=== PATIENT | female | born 1990 | race Caucasian/White ===

== ENCOUNTER 2016-11-16 12:10 | Emergency (ER) | payer MEDICAID ==
[2016-11-16 12:15] VITALS: BP 134/83
--- NOTE | 2016-11-16 12:45 | ER Document Report ---
ED Medical Screen (RME) - General Stated Complaint: NECK PAIN Mode of Arrival: Ambulatory Information source: Patient Notes: She presents to the emergency department with neck pain for year that increased in pain over the past month and a wrist pain. No other sx , has seen a neruolgist. I have greeted and performed a rapid initial assessment of this patient. A comprehensive ED assessment and evaluation of the patient, analysis of test results and completion of the medical decision making process will be conducted by additional ED providers. TRAVEL OUTSIDE OF THE [place] IN LAST 30 DAYS: No - Related Data Allergies/Adverse Reactions: No Known Allergies Allergy (Verified 10/05/15 16:53) Past Medical History - Immunizations Hx Diphtheria, Pertussis, Tetanus Vaccination: Yes Physical Exam - Vital signs Vitals: Temp Pulse Resp BP Pulse Ox 97.9 F 89 14 134/83 H 100 11/16/16 12:14 11/16/16 12:14 11/16/16 12:14 11/16/16 12:14 11/16/16 12:14 Course - Vital Signs Vital signs: Temp Pulse Resp BP Pulse Ox 97.9 F 89 14 134/83 H 100 11/16/16 12:14 11/16/16 12:14 11/16/16 12:14 11/16/16 12:14 11/16/16 12:14
[2016-11-16] MEDS ORDERED: IBUPROFEN 600 MG TABLET PO ONE (13:38)
[2016-11-16] MEDS ORDERED: METHOCARBAMOL 500 MG TABLET PO ONE (13:38)
--- NOTE | 2016-11-16 13:44 | ER Document Report ---
ED Neck/Back Problem - General Chief Complaint: Pain All Over Stated Complaint: NECK PAIN Time seen by provider: 13:39 Mode of Arrival: Ambulatory Information source: Patient Notes: 26-year-old female presents to ED for neck pain times a year. She has being seen by Dr. Guillen. She had a neck x-ray done last week and she is getting scheduled for a MRI. She states that the doctor didn't tell her much of anything and she is having pain has run out of muscle relaxers and needs something for her pain. TRAVEL OUTSIDE OF THE [place] IN LAST 30 DAYS: No - HPI Patient complains to provider of: Pain, Neck, Upper back Onset: Other - A year Timing: Still present Quality of pain: Sharp Severity: Severe Pain Level: 5 Recent injury: No Associated symptoms: Radiation to arm, Upper back pain, Other - Neck pain. denies: Constipation, Incontinence, Like prior neck/back pain, Motor loss, Numbness/tingling, Radiation to chest, Radiation to leg, Sensory loss, Unable to urinate, Lower back pain Exacerbated by: Other Relieved by: Nothing Similar symptoms previously: Yes Recently seen / treated by doctor: Yes - Related Data Allergies/Adverse Reactions: No Known Allergies Allergy (Verified 11/16/16 12:46) Past Medical History - General Information source: Patient - Social History Smoking Status: Current Every Day Smoker Cigarette use (# per day): Yes - 6 cigarettes a day Chew tobacco use (# tins/day): No Smoking Education Provided: Yes - less than a minute Frequency of alcohol use: Occasional Drug Abuse: None Lives with: Parents Family History: DM, Hyperlipidemia Patient has suicidal ideation: No Patient has homicidal ideation: No - Past Medical History Cardiac Medical History: Reports: None Pulmonary Medical History: Reports: None EENT Medical History: Reports: None Neurological Medical History: Reports: None Endocrine Medical History: Reports: None Renal/ Medical History: Reports: None Malignancy Medical History: Reports: None GI Medical History: Reports: None Musculoskeltal Medical History: Reports Hx Musculoskeletal Deformity - Chronic neck and back pain Skin Medical History: Reports None Psychiatric Medical History: Reports: None Traumatic Medical History: Reports: None Infectious Medical History: Reports: None Past Surgical History: Reports: Hx Oral Surgery - Multiple teeth surgically removed - Immunizations Immunizations up to date: Yes Hx Diphtheria, Pertussis, Tetanus Vaccination: Yes Review of Systems - Review of Systems Constitutional: No symptoms reported EENT: No symptoms reported Cardiovascular: No symptoms reported Respiratory: No symptoms reported Gastrointestinal: No symptoms reported Genitourinary: No symptoms reported Female Genitourinary: No symptoms reported Musculoskeletal: Back pain, Muscle pain, Neck pain - Upper back Skin: No symptoms reported Hematologic/Lymphatic: No symptoms reported Neurological/Psychological: No symptoms reported -: Yes All other systems reviewed and negative Physical Exam - Vital signs Vitals: Temp Pulse Resp BP Pulse Ox 97.9 F 89 14 134/83 H 100 11/16/16 12:14 11/16/16 12:14 11/16/16 12:14 11/16/16 12:14 11/16/16 12:14 Interpretation: Normal - General General appearance: Appears well, Alert - HEENT Head: Normocephalic, Atraumatic Eyes: Normal Pupils: PERRL - Respiratory Respiratory status: No respiratory distress Chest status: Nontender Breath sounds: Normal Chest palpation: Normal - Cardiovascular Rhythm: Regular Heart sounds: Normal auscultation Murmur: No - Abdominal Inspection: Normal Distension: No distension Bowel sounds: Normal Tenderness: Nontender Organomegaly: No organomegaly - Back Back: Normal, Tender, Vertebra tenderness - Upper back. No: Deformity/step-off , CVA tenderness, Scars, Scoliosis, Wounds, Other - Extremities General upper extremity: Normal inspection, Nontender, Normal color, Normal ROM , Normal temperature General lower extremity: Normal inspection, Nontender, Normal color, Normal ROM , Normal temperature, Normal weight bearing. No: Miguel's sign - Neurological Neuro grossly intact: Yes Cognition: Normal Orientation: AAOx4 Brandon Coma Scale Eye Opening: Spontaneous Phyllis Coma Scale Verbal: Oriented Phyllis Coma Scale Motor: Obeys Commands Phyllis Coma Scale Total: 15 Speech: Normal Motor strength normal: LUE, RUE, LLE, RLE Sensory: Normal - Psychological Associated symptoms: Normal affect, Normal mood - Skin Skin Temperature: Warm Skin Moisture: Dry Skin Color: Normal Course - Re-evaluation Re-evalutation: 11/16/16 13:43 Patient states she was seen last week by Dr. Guillen and again on Sunday and he stated that soon as the results of the x-ray were back he will recontact her and he has not set up an appointment at this time. He is also scheduled and not an MRI and due to her Medicaid she states it takes a little while to get that. She was also put on baclofen which she states she does not have any left. We'll give her small prescription of Robaxin and ibuprofen and have follow-up with Dr. Guillen - Vital Signs Vital signs: Temp Pulse Resp BP Pulse Ox 97.9 F 89 14 134/83 H 100 11/16/16 12:14 11/16/16 12:14 11/16/16 12:14 11/16/16 12:14 11/16/16 12:14 Discharge - Discharge Clinical Impression: Neck pain of over 3 months duration, Upper back pain, chronic Condition: Stable Disposition: HOME, SELF-CARE Additional Instructions: Chronic Back Pain Chronic back pain (pain persisting longer than three months) is a common problem. A medical evaluation can look for herniated disc, arthritis, osteoporosis, tumors, and infections. But at least half the time, there's no obvious treatable cause. Anxiety and depression tend to worsen back pain. Ibuprofen or other anti-inflammatory medicine can help. A heating pad, used for 15-20 minutes at a time, can ease pain. For this type of back pain, narcotic medicines should be avoided. Muscle relaxers are rarely helpful unless you're having spasms. Activity is important. Find an aerobic exercise program that your back can tolerate. Too much rest makes back pain worse. Specific back exercises are usually prescribed to strengthen the back and abdominal muscles. Often, a physical therapist can help. Avoid heavy lifting, working while bent over, or standing with both knees straight. Most back pain patients do better with a firm mattress. If new symptoms of a "herniated disc" (radiation of pain, numbness, or tingling down the back of the leg or weakness in the leg) occur, you should be re-examined. Chronic Pain Control Stress, inactivity, and depression make pain more severe regardless of the cause of the pain. Stress and poor physical condition can cause pain such as headaches and backache. Relaxation: Rest in a quiet place with your eyes closed for 20 minutes twice daily. Concentrate on a pleasant image, or simply "feel" your breathing. Clear your mind. Stress management: Deal with your "stressors." Either take action, or eliminate the stressor from your life. Don't let things hang over you. Accept those things you can't change. Nutrition: Eat small, balanced meals -- don't skip, don't overeat. Meals should be high-carbohydrate, low-sugar, low-fat. Exercise: Exercise helps painful conditions and eases stress. Get 30 minutes of moderate exercise, five days a week. Do an activity that does not flare your pain. Precautions: Pain which continues to disrupt daily activities, or which changes in nature, requires a medical evaluation. Pain Clinic referral is available. We do not manage chronic pain in the Emergency Department. We will try to appropriately help you through an acute flare of your chronic painful condition , but for on-going chronic pain that does not improve, you will need to see your private doctor or paint tester. We do not provide repeated medication management of chronic painful conditions. If you wish, we can provide the name of local pain management physicians. Ibuprofen Ibuprofen is an excellent, safe drug for pain control. In addition, it has potent antiinflammatory effects which are beneficial, especially in the treatment of injuries, arthritis, or tendonitis. It's best to take ibuprofen with food. Persons with ulcer disease or allergy to aspirin should notify their physician of this before taking ibuprofen. Take the medication exactly as prescribed. Don't take additional doses unless instructed to do so by your doctor. If you develop wheezing, shortness of breath, hives, faintness, stomach pain, vomiting, or dark black stools, return for re-evaluation at once. MUSCLE RELAXERS: Muscle relaxing medications are usually prescribed for acute muscle spasm or injury to the neck and back. They are often combined with antiinflammatory pain medication for increased relief. You may stop the muscle relaxer when the pain and stiffness have improved. Start the medication again if spasms recur. Muscle relaxers may cause drowsiness, especially with the first dose. Do not operate machinery or drive while under the effects of the medication. Most muscle relaxers last up to 24 hours. Do not combine the medication with alcohol. ICE PACKS: Apply ice packs frequently against the painful area. Many different schedules are recommended, such as "20 minutes on, 20 minutes off" or "one hour ice, two hours rest." If you need to work, you may need to go longer between ice treatments. You should plan to have the area ice packed AT LEAST one fourth of the time. The ice should be applied over the wrap, tape, or splint, or over a layer of cloth -- not directly against the skin. Some ice bags have a built-in cloth and can be put directly on the skin. WARM PACKS: After approximately two days, apply gentle heat (such as a heating pad or hot water bottle) for about 20 to 30 minutes about every two hours -- at least four times daily. Warmth and elevation will help you make a more rapid recovery , and will ease the pain considerably. Do not use HOT heat, and never apply heat for longer than 30 minutes. The continuous heat can invisibly damage skin and muscles -- even when no burn is seen on the surface. Damaged muscles can make you MORE sore. FOLLOW-UP CARE: If you have been referred to a physician for follow-up care, call the physician s office for an appointment as you were instructed or within the next two days. If you experience worsening or a significant change in your symptoms, notify the physician immediately or return to the Emergency Department at any time for re-evaluation. Prescriptions: Ibuprofen [Motrin 600 mg Tablet] 600 mg PO Q8HP PRN #20 tablet PRN Reason: Methocarbamol [Robaxin 500 mg Tablet] 500 mg PO BID #10 tablet Forms: Elevated Blood Pressure, Smoking Cessation Education, Return to Work Referrals: ERYN GUILLEN MD [EMER[facility]] - Follow up in 3-5 days
== END 2016-11-16 14:00 | disposition home or self-care (01) ==
LOC: ER 12:10
DX: M54.2 Cervicalgia (principal); M54.89 Other dorsalgia; G89.29 Other chronic pain; F17.210 Nicotine dependence, cigarettes, uncomplicated; Z71.6 Tobacco abuse counseling
CPT/HCPCS: 99283; J3490 ×2

== ENCOUNTER → 2016-12-13 | Outpatient (CLI) | payer MEDICAID ==
[2016-12-13 12:53] LABS: ABSOLUTE BASOPHILS # (AUTO) 0.1 10^3/uL (0.0-0.2); ABSOLUTE EOSINOPHILS # (AUTO) 0.2 10^3/uL (0.0-0.6); ABSOLUTE LYMPHOCYTES (AUTO) 4.1 10^3/uL (0.5-4.7); ABSOLUTE MONOCYTES (AUTO) 0.6 10^3/uL (0.1-1.4); ABSOLUTE NEUT (AUTO) 6.8 10^3/uL (1.7-8.2); BASOPHILS % (AUTO) 0.4 % (0-2); EOSINOPHILS % (AUTO) 1.4 % (0-6); HEMOGLOBIN 11.7 g/dL (12.0-15.5); HGB HCT DIFFERENCE 0.1; LYMPHOCYTES % (AUTO) 35.2 % (13-45); MEAN CORPUSCULAR HEMOGLOBIN 29.5 pg (27.0-33.4); MEAN CORPUSCULAR HGB CONC 33.6 g/dL (32.0-36.0); MEAN CORPUSCULAR VOLUME 88 fl (80-97); MONOCYTES % (AUTO) 5.1 % (3-13); RED BLOOD COUNT 3.99 10^6/uL (3.72-5.28); RED CELL DISTRIBUTION WIDTH 13.2 % (11.5-14.0); SEGMENTED NEUTROPHILS % (AUTO) 57.9 % (42-78); WHITE BLOOD COUNT 11.7 10^3/uL (4.0-10.5)
[2016-12-13 13:16] LABS: ALANINE AMINOTRANSFERASE 19 U/L (9-52); ALBUMIN 4.1 g/dL (3.5-5.0); ALKALINE PHOSPHATASE 70 U/L (38-126); ANION GAP 10 (5-19); ASPARTATE AMINO TRANSFERASE 16 U/L (14-36); BILIRUBIN,TOTAL 0.3 mg/dL (0.2-1.3); BLOOD UREA NITROGEN 14 mg/dL (7-20); CALCIUM 9.9 mg/dL (8.4-10.2); CARBON DIOXIDE 24 mmol/L (22-30); CHLORIDE 105 mmol/L (98-107); CREATININE RESULT 0.86 mg/dL (0.52-1.25); GLUCOSE 71 mg/dL (75-110); POTASSIUM 4.3 mmol/L (3.6-5.0); SODIUM 139.2 mmol/L (137-145); TOTAL PROTEIN 7.4 g/dL (6.3-8.2)
[2016-12-13 13:22] LABS: C-REACTIVE PROTEIN < 5.0 mg/L (<10.0)
[2016-12-13 13:45] LABS: ERYTHROCYTE SEDIMENTATION RATE 20 mm/hr (0-20)
== END ==
LOC: OD 11:57
PROVIDERS: ATTEND Family Medicine
DX: G62.9 Polyneuropathy, unspecified (principal)
CPT/HCPCS: 36415; 80053; 84443; 85025; 85652; 86038; 86140; 86592

== ENCOUNTER 2017-01-10 10:05 | Emergency (ER) | payer MEDICAID ==
[2017-01-10 10:21] VITALS: BP 118/83
--- NOTE | 2017-01-10 10:26 | ER Document Report ---
ED Medical Screen (RME) - General Stated Complaint: HEADACHE Notes: 26 yo female from doctor's office. felt dizzy and near syncopal during blood draw. presently alert & oriented x 3, feels shaky and weak. hx/o anxiety, anemia. pt presently on period. PCM - Dr Dudley, [facility] TRAVEL OUTSIDE OF THE [place] IN LAST 30 DAYS: No - Related Data Allergies/Adverse Reactions: No Known Allergies Allergy (Verified 11/16/16 12:46) Past Medical History Renal/ Medical History: Denies: Hx Peritoneal Dialysis Musculoskeltal Medical History: Reports Hx Musculoskeletal Deformity - Chronic neck and back pain Past Surgical History: Reports: Hx Oral Surgery - Multiple teeth surgically removed - Immunizations Immunizations up to date: Yes Hx Diphtheria, Pertussis, Tetanus Vaccination: Yes Physical Exam - Vital signs Vitals: Temp Pulse Resp BP Pulse Ox 98.4 F 87 18 118/83 100 01/10/17 10:20 01/10/17 10:20 01/10/17 10:20 01/10/17 10:20 01/10/17 10:20 Course - Vital Signs Vital signs: Temp Pulse Resp BP Pulse Ox 98.4 F 87 18 118/83 100 01/10/17 10:20 01/10/17 10:20 01/10/17 10:20 01/10/17 10:20 01/10/17 10:20
[2017-01-10 11:14] LABS: ABSOLUTE EOSINOPHILS # (AUTO) 0.2 10^3/uL (0.0-0.6); ABSOLUTE LYMPHOCYTES (AUTO) 2.3 10^3/uL (0.5-4.7); ABSOLUTE MONOCYTES (AUTO) 0.6 10^3/uL (0.1-1.4); ABSOLUTE NEUT (AUTO) 6.9 10^3/uL (1.7-8.2); BASOPHILS % (AUTO) 0.4 % (0-2); EOSINOPHILS % (AUTO) 2.2 % (0-6); HEMATOCRIT 36.7 % (36.0-47.0); HEMOGLOBIN 12.3 g/dL (12.0-15.5); HGB HCT DIFFERENCE 0.2; LYMPHOCYTES % (AUTO) 23.2 % (13-45); MEAN CORPUSCULAR HEMOGLOBIN 29.3 pg (27.0-33.4); MEAN CORPUSCULAR HGB CONC 33.5 g/dL (32.0-36.0); MEAN CORPUSCULAR VOLUME 88 fl (80-97); MONOCYTES % (AUTO) 5.7 % (3-13); RED BLOOD COUNT 4.18 10^6/uL (3.72-5.28); RED CELL DISTRIBUTION WIDTH 13.9 % (11.5-14.0); SEGMENTED NEUTROPHILS % (AUTO) 68.5 % (42-78)
[2017-01-10 11:21] LABS: APPEARANCE,URINE SLIGHTLY-CLOUDY; BILIRUBIN,URINE NEGATIVE (NEGATIVE); GLUCOSE, URINE NEGATIVE (NEGATIVE); KETONES,URINE NEGATIVE (NEGATIVE); LEUKOCYTE ESTERASE,URINE NEGATIVE (NEGATIVE); NITRITE,URINE NEGATIVE (NEGATIVE); PROTEIN,URINE NEGATIVE (NEGATIVE); URINE SPECIFIC GRAVITY 1.008; UROBILINOGEN,URINE NEGATIVE mg/dL (<2.0)
[2017-01-10 11:33] LABS: ALANINE AMINOTRANSFERASE 19 U/L (9-52); ALBUMIN 4.6 g/dL (3.5-5.0); ALKALINE PHOSPHATASE 66 U/L (38-126); ANION GAP 13 (5-19); ASPARTATE AMINO TRANSFERASE 17 U/L (14-36); BILIRUBIN,DIRECT 0.2 mg/dL (0.0-0.4); BILIRUBIN,TOTAL 0.3 mg/dL (0.2-1.3); BLOOD UREA NITROGEN 10 mg/dL (7-20); CALCIUM 9.9 mg/dL (8.4-10.2); CARBON DIOXIDE 24 mmol/L (22-30); CHLORIDE 105 mmol/L (98-107); CREATININE RESULT 0.73 mg/dL (0.52-1.25); GLUCOSE 98 mg/dL (75-110); POTASSIUM 4.1 mmol/L (3.6-5.0); TOTAL PROTEIN 7.4 g/dL (6.3-8.2)
[2017-01-10] MEDS ORDERED: IBUPROFEN 800 MG TABLET PO ONE (12:01)
[2017-01-10] MEDS ORDERED: DIPHENHYDRAMINE HCL 50 MG CAPSULE PO ONE (12:01)
[2017-01-10] MEDS ORDERED: PROCHLORPERAZINE MALEATE 10 MG TABLET PO ONE (12:02)
--- NOTE | 2017-01-10 12:02 | ER Document Report ---
HPI - HPI Patient complains to provider of: headache, dizziness, thrush, numb arms/legs Onset: Just prior to arrival Onset/Duration: Sudden Pain Level: 5 Context: 26-year-old female while having blood drawn at doctor's office became dizzy, lightheaded, headache and almost passed out. She also got numbness to her arms and legs at the same time. She states she was not hyperventilating. She also is complaining about recurrent thrush to her tongue. She is not diabetic nor have HIV. No chest pain or shortness of breath. No abdominal pain. No fever or chills. She feels a lot better. Associated Symptoms: None Exacerbated by: Denies Relieved by: Denies Similar symptoms previously: No Recently seen / treated by doctor: No - ROS ROS below otherwise negative: Yes Systems Reviewed and Negative: Yes All other systems reviewed and negative - REPRODUCTIVE LMP: now Reproductive: DENIES: : - DERM Skin Color: Normal Past Medical History - General Information source: Patient - Social History Smoking Status: Current Every Day Smoker Frequency of alcohol use: Occasional Drug Abuse: None Lives with: Family Family History: DM, Hyperlipidemia Patient has suicidal ideation: No Patient has homicidal ideation: No Neurological Medical History: Reports: Hx Migraine Renal/ Medical History: Denies: Hx Peritoneal Dialysis Musculoskeltal Medical History: Reports Hx Musculoskeletal Deformity - Chronic neck and back pain Other: thrush Past Surgical History: Reports: Hx Oral Surgery - Multiple teeth surgically removed - Immunizations Immunizations up to date: Yes Hx Diphtheria, Pertussis, Tetanus Vaccination: Yes Vertical Provider Document - CONSTITUTIONAL Agree With Documented VS: Yes - INFECTION CONTROL TRAVEL OUTSIDE OF THE [place] IN LAST 30 DAYS: No - HEENT HEENT: Atraumatic, Normocephalic, PERRLA. negative: Conjuctival Injection, Pharyngeal Erythema, Tympanic Membrane Red Notes: tongue is graffic, ely discoloration, no thrush buccal mucosa or post pharynx - NECK Neck: Supple, Thyroid Normal. negative: Lymphadenopathy-Left, Lymphadenopathy- Right - RESPIRATORY Respiratory: Breath Sounds Normal, No Respiratory Distress O2 Sat by Pulse Oximetry: 100 - CARDIOVASCULAR Cardiovascular: Regular Rate, Regular Rhythm - GI/ABDOMEN Gastrointestinal: Abdomen Soft, Abdomen Non-Tender, No Organomegaly - BACK Back: Normal Inspection - MUSCULOSKELETAL/EXTREMETIES Musculoskeletal/Extremeties: MAEW, FROM, Non-Tender - NEURO Level of Consciousness: Awake, Alert, Appropriate - DERM Integumentary: Warm, Dry, No Rash Course - Vital Signs Vital signs: Temp Pulse Resp BP Pulse Ox 98.4 F 87 18 118/83 100 01/10/17 10:20 01/10/17 10:20 01/10/17 10:20 01/10/17 10:20 01/10/17 10:20 - Laboratory Result Diagrams: 01/10/17 11:00 01/10/17 11:00 Laboratory results interpreted by me: 01/10/17 11:00 Urine Blood LARGE H Discharge - Discharge Clinical Impression: Paresthesia, Glossitis, Dizziness Headache Qualifiers: Headache type: unspecified Headache chronicity pattern: unspecified pattern Intractability: not intractable Qualified Code(s): R51 - Headache Condition: Good Disposition: HOME, SELF-CARE Instructions: Dizziness ([facility]), Numbness or Paresthesia ([facility]) Additional Instructions: Call me before 11 PM tonight for the vitamin B-12 or thiamine level and the home swab see Dr. Clemente tomorrow Return to the emergency room Please complete the patient satisfaction survey if you get one, and return it.. If you do not receive a survey, then you can go to the [facility] website, [email or web address] and place your comments about your very good care. Thank you very much. It was a pleasure being your medical provider today. Referrals: NAHED CLEMENTE MD [Primary Care Provider] - Follow up tomorrow
--- NOTE | 2017-01-10 13:50 | EKG REPORT ---
SEVERITY:- NORMAL ECG - SINUS RHYTHM : Confirmed by: Nj Shabazz MD 10-Jan-2017 13:49:03
== END 2017-01-10 13:39 | disposition home or self-care (01) ==
LOC: ER 10:05
DX: K14.0 Glossitis (principal); R51 Headache; R42 Dizziness and giddiness; R20.0 Anesthesia of skin; F17.200 Nicotine dependence, unspecified, uncomplicated; Z83.3 Family history of diabetes mellitus; Z86.19 Personal history of other infectious and parasitic diseases
CPT/HCPCS: 93005; 99284; 36415; 87086; 87210; 82607; 84703; 85025; 80053; 81001; 93010; J3490 ×2; S0183

== ENCOUNTER 2017-02-28 17:07 | Observation (INO) | payer OTHER, MEDICAID ==
[2017-02-28] MEDS ORDERED: ONDANSETRON 4 MG TAB.RAPDIS PO ONE (17:26)
[2017-02-28] MEDS ORDERED: OXYCODONE-ACETAMINOPHEN 5-325 MG TABLET PO ONE (17:26)
[2017-02-28 18:03] LABS: ABSOLUTE EOSINOPHILS # (AUTO) 0.2 10^3/uL (0.0-0.6); ABSOLUTE LYMPHOCYTES (AUTO) 3.7 10^3/uL (0.5-4.7); ABSOLUTE MONOCYTES (AUTO) 0.6 10^3/uL (0.1-1.4); ABSOLUTE NEUT (AUTO) 4.4 10^3/uL (1.7-8.2); BASOPHILS % (AUTO) 0.5 % (0-2); EOSINOPHILS % (AUTO) 2.2 % (0-6); HEMATOCRIT 36.6 % (36.0-47.0); HEMOGLOBIN 12.1 g/dL (12.0-15.5); HGB HCT DIFFERENCE -0.3; LYMPHOCYTES % (AUTO) 41.8 % (13-45); MEAN CORPUSCULAR HEMOGLOBIN 28.8 pg (27.0-33.4); MEAN CORPUSCULAR HGB CONC 33.1 g/dL (32.0-36.0); MEAN CORPUSCULAR VOLUME 87 fl (80-97); MONOCYTES % (AUTO) 6.3 % (3-13); RED CELL DISTRIBUTION WIDTH 13.6 % (11.5-14.0); SEGMENTED NEUTROPHILS % (AUTO) 49.2 % (42-78); WHITE BLOOD COUNT 8.9 10^3/uL (4.0-10.5)
[2017-02-28 18:09] LABS: APPEARANCE,URINE SLIGHTLY-CLOUDY; BILIRUBIN,URINE NEGATIVE (NEGATIVE); GLUCOSE, URINE NEGATIVE (NEGATIVE); KETONES,URINE NEGATIVE (NEGATIVE); LEUKOCYTE ESTERASE,URINE NEGATIVE (NEGATIVE); NITRITE,URINE NEGATIVE (NEGATIVE); PROTEIN,URINE NEGATIVE (NEGATIVE); URINE SPECIFIC GRAVITY 1.013; UROBILINOGEN,URINE NEGATIVE mg/dL (<2.0)
[2017-02-28 18:17] LABS: ALANINE AMINOTRANSFERASE 24 U/L (9-52); ALBUMIN 4.5 g/dL (3.5-5.0); ALKALINE PHOSPHATASE 55 U/L (38-126); ANION GAP 11 (5-19); ASPARTATE AMINO TRANSFERASE 21 U/L (14-36); BILIRUBIN,DIRECT 0.4 mg/dL (0.0-0.4); BILIRUBIN,TOTAL 0.5 mg/dL (0.2-1.3); BLOOD UREA NITROGEN 15 mg/dL (7-20); CALCIUM 9.9 mg/dL (8.4-10.2); CARBON DIOXIDE 26 mmol/L (22-30); CHLORIDE 102 mmol/L (98-107); CREATININE RESULT 0.82 mg/dL (0.52-1.25); GLUCOSE 73 mg/dL (75-110); LIPASE 138.2 U/L (23-300); POTASSIUM 4.5 mmol/L (3.6-5.0); SODIUM 139.1 mmol/L (137-145); TOTAL PROTEIN 7.6 g/dL (6.3-8.2)
[2017-02-28] MEDS ORDERED: NORMAL SALINE 1000 ML 1,000 ML IV ONE (19:57)
[2017-02-28] MEDS ORDERED: KETOROLAC TROMETHAMINE INJ/PF 30 MG/1 ML SDV IV ONE (19:57)
--- NOTE | 2017-02-28 20:09 | ER Document Report ---
ED GI/ <ERIC NICHOLAS - Last Filed: 02/28/17 21:07> - General Mode of Arrival: Ambulatory Information source: Patient TRAVEL OUTSIDE OF THE [place] IN LAST 30 DAYS: No - HPI Patient complains to provider of: Abdominal pain - RUQ and RLQ, Vomiting Onset: This afternoon - 1500 Location: RUQ, RLQ Associated symptoms: Other - see notes above <RAPHAEL RANDALL - Last Filed: 02/28/17 21:46> - General Chief Complaint: Abdominal Pain Stated Complaint: ABDOMINAL PAIN Time Seen by Provider: 02/28/17 17:26 Notes: 26 year old female presents to the ED complaining of RUQ pain that has been intermittent for the past 2 months, but worsened earlier this afternoon at 1500. Patient reports that she [facility] and is scheduled for a cholecystectomy in 1 week. Patient additionally complains of nausea, vomiting, and RLQ abdominal pain. Patient is currently taking iron supplements, Diazepam, Clonazepam, and Tramadol. Patient reports that she used to take Topomax and Lexapro, but does not anymore. Patient had an endoscopy and colonoscopy performed by Dr. Syed that showed ulcers. On 08/01/2013 patient had a RUQ ultrasound performed secondary to RUQ pain which was normal. (RAPHAEL RANDALL) - Related Data Allergies/Adverse Reactions: No Known Allergies Allergy (Verified 02/28/17 10:22) Home Medications: Current Home Medications Diazepam [Valium 5 mg Tablet] 5 mg PO DAILYP PRN 02/28/17 [History] Ferrous Sulfate [Ferrous Sulfate] 325 mg PO DAILY 02/28/17 [History] Omeprazole [Omeprazole] 40 mg PO Q12 02/28/17 [History] Past Medical History - General Information source: Patient - Social History Smoking Status: Current Every Day Smoker Cigarette use (# per day): Yes - 0.5 ppd Frequency of alcohol use: Occasional Family History: DM, Hyperlipidemia Patient has suicidal ideation: No Patient has homicidal ideation: No Neurological Medical History: Reports: Hx Migraine Musculoskeltal Medical History: Reports Hx Musculoskeletal Deformity - Chronic neck and back pain Past Surgical History: Reports: Hx Oral Surgery - [place] teeth extraction. Two left molar and one right molar extraction. - Immunizations Immunizations up to date: Yes Hx Diphtheria, Pertussis, Tetanus Vaccination: No <RAPHAEL RANDALL - Last Filed: 02/28/17 21:46> Review of Systems - Review of Systems Constitutional: No symptoms reported EENT: No symptoms reported Cardiovascular: No symptoms reported Respiratory: No symptoms reported Gastrointestinal: See HPI, Abdominal pain - RUQ and RLQ, Nausea, Vomiting Genitourinary: No symptoms reported Female Genitourinary: No symptoms reported Musculoskeletal: No symptoms reported Skin: No symptoms reported Hematologic/Lymphatic: No symptoms reported Neurological/Psychological: No symptoms reported -: Yes All other systems reviewed and negative <RAPHAEL RANDALL - Last Filed: 02/28/17 21:46> Physical Exam - General General appearance: Alert In distress: None - HEENT Head: Normocephalic, Atraumatic Eyes: Normal Extraocular movements intact: Yes Pupils: PERRL - Respiratory Respiratory status: No respiratory distress Breath sounds: Normal - Cardiovascular Rhythm: Regular Heart sounds: Normal auscultation - Abdominal Inspection: Normal Distension: No distension Tenderness: Tender - Tenderness to palpation from the right pelvic region to RUQ. - Back Back: Normal - Extremities General upper extremity: Normal inspection, Normal ROM General lower extremity: Normal inspection, Normal ROM - Neurological Neuro grossly intact: Yes - Psychological Associated symptoms: Normal affect, Normal mood - Skin Skin Temperature: Warm Skin Moisture: Dry Skin Color: Normal <RAPHAEL RANDALL - Last Filed: 02/28/17 21:46> - Vital signs Vitals: Temp Pulse BP Pulse Ox 97.8 F 85 129/79 H 99 02/28/17 17:17 02/28/17 17:17 02/28/17 17:17 02/28/17 17:17 Course - Laboratory Result Diagrams: 02/28/17 17:40 02/28/17 17:40 - Diagnostic Test Radiology reviewed: Image reviewed - Several small stones in the gallbladder neck - EKG Interpretation by Oh EKG shows normal: Sinus rhythm, [place], Intervals, QRS Complexes. abnormal: ST-T Waves - Nonspecific diffuse repolarization abnormality Rate: Normal - 87 Rhythm: NSR P Waves: LAE - Consults Dr. Allen Time consulted: 21:05 Consulted provider: will come to ER <ERIC NICHOLAS - Last Filed: 02/28/17 21:07> - Laboratory Result Diagrams: 02/28/17 17:40 02/28/17 17:40 <RAPHAEL RANDALL - Last Filed: 02/28/17 21:46> - Vital Signs Vital signs: Temp Pulse Resp BP Pulse Ox 97.8 F 85 129/79 H 99 02/28/17 17:17 02/28/17 17:17 02/28/17 17:17 02/28/17 17:17 - Laboratory Laboratory results interpreted by me: 02/28/17 17:40 Glucose 73 L Discharge - Discharge Admitting Provider: Surgicalist Unit Admitted: Surgical Floor <ERIC NICHOLAS - Last Filed: 02/28/17 21:07> <RAPHAEL RANDALL - Last Filed: 02/28/17 21:46> - Discharge Clinical Impression: Cholelithiasis Qualifiers: Cholelithiasis location: gallbladder Cholecystitis presence: with cholecystitis Cholecystitis acuity: acute Biliary obstruction: without biliary obstruction Qualified Code(s): K80.00 - Calculus of gallbladder with acute cholecystitis without obstruction Condition: Stable Disposition: ADMITTED INPATIENT Scribe Attestation: 02/28/17 21:08 I personally performed the services described in the documentation, reviewed and edited the documentation which was dictated to the scribe in my presence, and it accurately records my words and actions. (ERIC NICHOLAS) Scribe Documentation - Scribe Written by See:: See Yepez, 02/28/2017 2013 acting as scribe for :: Unique <RAPHAEL RANDALL - Last Filed: 02/28/17 21:46>
[2017-02-28] MEDS ORDERED: HYDROMORPHONE HCL INJ/PF 2 MG/ML AMPULE IV PRN (22:11)
[2017-02-28] MEDS ORDERED: ONDANSETRON HCL INJ/PF 4 MG/2 ML SDV IV PRN (22:12)
[2017-02-28] MEDS: CEFAZOLIN 1 GM/D5W RTU 1 GM/50 ML RTUPB IV SCH (23:10)
[2017-02-28] MEDS: NORMAL SALINE 1000 ML 1,000 ML IV PRN (23:11)
--- NOTE | 2017-02-28 23:23 | HISTORY AND PHYSICAL E ---
History and Physical NAME: LIZ SHUKLA : 1990 AGE: 26Y ADMITTED: 02/28/2017 ROOM: ED14 HISTORY OF PRESENT ILLNESS: This is a 26-year-old female who complains of severe right upper quadrant pain radiating to the back few hours after eating lasagna at noontime. This was associated with nausea. She went to the emergency room where an ultrasound of the gallbladder apparently showed gallstones. We are waiting for the official reading of the ultrasound. At any rate, patient did have an ultrasound of the gallbladder at an [facility] about a month ago and noted to have gallstones. She has been having off and on right upper quadrant abdominal pains radiating to the back into the sternal area for the past month and a half. She was referred to Dr. Hilario about a month ago and then came back a week ago for milder discomfort in the right upper quadrant and was scheduled for laparoscopic cholecystectomy next week. She did have an upper endoscopy done about a month ago and told that she had "gastric ulcers." She was given omeprazole to take twice a day and she finished her first prescription yesterday and supposed to start another prescription today. PAST MEDICAL HISTORY: History of dental work with removal of molars. She has some anxiety. No other previous surgery. FAMILY HISTORY: Strong for gallbladder disease. Her mother just got diagnosed with gallstones and her grandmother had surgery for gallstones. ALLERGIES: None known. REVIEW OF SYSTEMS: As in HPI. Last week she said she had diarrhea and this week constipation. She denies any dysuria. Admits to having right upper quadrant pain radiating to the back into the sternal area. She has some chest discomfort and occasional shortness of breath. Also occasional headaches. No weakness or nasal congestion. She denies any *------* of her symptoms to eating fried or greasy food though today ate lasagne which is quite greasy. The rest of the systems are unremarkable. SOCIAL HISTORY: Smokes about 6 cigarettes a day. Drinks socially. Denies drug use. PHYSICAL EXAM: GENERAL: Well developed, well nourished 26-year-old female. Alert and oriented. Complaining of right upper quadrant pain. HEENT: Neck is supple. No thyromegaly. LUNGS: Clear. HEART: Regular sinus rhythm. ABDOMEN: Soft with tenderness in the right upper quadrant. She just had some Toradol which she claims just took a little bit of the edge of. EXTREMITIES: No edema. IMPRESSION: Acute calculous cholecystitis. This patient had a full dinner at 12 noon and had a soda around 4:30. PLAN: Will just keep her n.p.o. tonight and Dr. Hilario can do her lap nabeel tomorrow morning. DICTATING PHYSICIAN: TRANG LOPEZ M.D. [id number] PHY#: [id number] ID: [id number] JOB#: [id number] ACCT: [id number] cc:TRANG LOPEZ M.D. >
[2017-02-28] MEDS: HYDROMORPHONE HCL INJ/PF 2 MG/ML AMPULE IV PRN (23:25)
[2017-03-01] MEDS: HYDROMORPHONE HCL INJ/PF 2 MG/ML AMPULE IV PRN ×3 (02:32→09:07)
[2017-03-01] MEDS: NORMAL SALINE 1000 ML 1,000 ML IV PRN ×2 (02:39→17:55)
[2017-03-01 05:30] LABS: ABSOLUTE EOSINOPHILS # (AUTO) 0.2 10^3/uL (0.0-0.6); ABSOLUTE LYMPHOCYTES (AUTO) 4.1 10^3/uL (0.5-4.7); ABSOLUTE MONOCYTES (AUTO) 0.5 10^3/uL (0.1-1.4); ABSOLUTE NEUT (AUTO) 2.7 10^3/uL (1.7-8.2); BASOPHILS % (AUTO) 0.5 % (0-2); EOSINOPHILS % (AUTO) 2.6 % (0-6); HEMATOCRIT 33.7 % (36.0-47.0); HEMOGLOBIN 11.1 g/dL (12.0-15.5); HGB HCT DIFFERENCE -0.4; LYMPHOCYTES % (AUTO) 54.5 % (13-45); MEAN CORPUSCULAR HEMOGLOBIN 29.2 pg (27.0-33.4); MEAN CORPUSCULAR VOLUME 88 fl (80-97); MONOCYTES % (AUTO) 6.2 % (3-13); RED BLOOD COUNT 3.81 10^6/uL (3.72-5.28); RED CELL DISTRIBUTION WIDTH 13.7 % (11.5-14.0); SEGMENTED NEUTROPHILS % (AUTO) 36.2 % (42-78); WHITE BLOOD COUNT 7.6 10^3/uL (4.0-10.5)
[2017-03-01 05:42] LABS: ALANINE AMINOTRANSFERASE 26 U/L (9-52); ALBUMIN 3.6 g/dL (3.5-5.0); ALKALINE PHOSPHATASE 50 U/L (38-126); AMYLASE 55 U/L (30-110); ANION GAP 5 (5-19); ASPARTATE AMINO TRANSFERASE 16 U/L (14-36); BILIRUBIN,DIRECT 0.3 mg/dL (0.0-0.4); BILIRUBIN,TOTAL 0.5 mg/dL (0.2-1.3); BLOOD UREA NITROGEN 14 mg/dL (7-20); CALCIUM 8.7 mg/dL (8.4-10.2); CARBON DIOXIDE 28 mmol/L (22-30); CHLORIDE 106 mmol/L (98-107); CREATININE RESULT 0.72 mg/dL (0.52-1.25); GLUCOSE 86 mg/dL (75-110); POTASSIUM 4.4 mmol/L (3.6-5.0); SODIUM 138.5 mmol/L (137-145); TOTAL PROTEIN 6.2 g/dL (6.3-8.2)
[2017-03-01] MEDS: CEFAZOLIN 1 GM/D5W RTU 1 GM/50 ML RTUPB IV SCH (05:47)
--- NOTE | 2017-03-01 08:32 | PDOC PROGRESS REPORT ---
Subjective Progress Note for:: 03/01/17 Subjective:: Right upper quadrant abdominal pain radiating to the back. Physical Exam Vital Signs: Temp Pulse Resp BP Pulse Ox 97.8 F 63 17 105/53 L 98 03/01/17 01:47 03/01/17 01:47 03/01/17 01:47 03/01/17 01:47 03/01/17 01:47 Intake & Output 02/28/17 03/01/17 03/02/17 06:59 06:59 06:59 Intake Total 0 Balance 0 Weight 86.9 kg General appearance: PRESENT: cooperative, mild distress Respiratory exam: PRESENT: clear to auscultation indio Cardiovascular exam: PRESENT: RRR GI/Abdominal exam: PRESENT: other - Soft, nondistended, focal tenderness to palpation the right upper quadrant but no peritoneal signs. Extremities exam: PRESENT: other - No swelling Results Laboratory Results: 03/01/17 05:06 03/01/17 05:06 03/01/17 03/01/17 05:06 05:06 WBC 7.6 RBC 3.81 Hgb 11.1 L Hct 33.7 L MCV 88 MCH 29.2 MCHC 33.0 RDW 13.7 Plt Count 279 Seg Neutrophils % 36.2 L Lymphocytes % 54.5 H Monocytes % 6.2 Eosinophils % 2.6 Basophils % 0.5 Absolute Neutrophils 2.7 Absolute Lymphocytes 4.1 Absolute Monocytes 0.5 Absolute Eosinophils 0.2 Absolute Basophils 0.0 Sodium 138.5 Potassium 4.4 Chloride 106 Carbon Dioxide 28 Anion Gap 5 BUN 14 Creatinine 0.72 Est GFR ( Amer) > 60 Est GFR (Non-Af Amer) > 60 Glucose 86 Calcium 8.7 Total Bilirubin 0.5 AST 16 ALT 26 Alkaline Phosphatase 50 Total Protein 6.2 L Albumin 3.6 Amylase 55 Lipase 225.0 Impressions: Abdomen Ultrasound 02/28/17 17:30 IMPRESSION: NORMAL RIGHT UPPER QUADRANT ULTRASOUND. Assessment & Plan - Diagnosis (1) Cholelithiasis Qualifiers: Cholelithiasis location: gallbladder Cholecystitis presence: with cholecystitis Cholecystitis acuity: acute Biliary obstruction: without biliary obstruction Qualified Code(s): K80.00 - Calculus of gallbladder with acute cholecystitis without obstruction Plan: Likely acute cholecystitis. Although the current radiologist does not see any gallstones on the ultrasound, patient had the stones on prior ultrasound. Patient signs and symptoms are consistent with cholecystitis. Will proceed with laparoscopic cholecystectomy. I have discussed with the patient the risk and benefits of the procedure including risk of mistaken diagnosis, postcholecystectomy diarrhea, bile duct and intestinal injury, bleeding, infection, conversion to an open procedure, and cardiopulmonary complications. Patient understands and agrees to proceed.
[2017-03-01] MEDS ORDERED: BUPIVACAINE HCL 0.25 % INJ/PF (2.5 MG/1 ML) 30 ML VIAL ONE (08:54)
[2017-03-01] MEDS ORDERED: FENTANYL CITRATE INJ/PF 250 MCG/5 ML AMPULE ONE (09:18)
[2017-03-01] MEDS ORDERED: HYDROMORPHONE HCL INJ/PF 2 MG/ML AMPULE ONE (09:19)
[2017-03-01] MEDS ORDERED: EPHEDRINE SULFATE INJ 50 MG/1 ML AMPULE ONE (09:19)
[2017-03-01] MEDS ORDERED: DEXAMETHASONE SOD PHOSPHATE INJ 4 MG/1 ML VIAL ONE (09:19)
[2017-03-01] MEDS ORDERED: ONDANSETRON HCL INJ/PF 4 MG/2 ML SDV ONE ×2 (09:19→11:15)
[2017-03-01] MEDS ORDERED: MIDAZOLAM 2 MG/2 ML INJ ONE (09:19)
[2017-03-01] MEDS ORDERED: PROPOFOL INJ 200 MG/20 ML VIAL IV ONE (09:19)
[2017-03-01] MEDS ORDERED: DIPHENHYDRAMINE HCL 50 MG/ML VIAL IV PRN (10:05)
[2017-03-01] MEDS ORDERED: FENTANYL CITRATE INJ/PF 100 MCG/2 ML AMPUL IV PRN ×3 (10:05)
[2017-03-01] MEDS ORDERED: PROMETHAZINE HCL INJ 25 MG/1 ML VIAL IV PRN (10:05)
[2017-03-01] MEDS ORDERED: MEPERIDINE HCL/PF INJ 25 MG/1 ML DISP.SYRIN IV PRN (10:05)
--- NOTE | 2017-03-01 10:51 | Operative Report ---
Operative Report DATE OF SURGERY: 03/01/17 PREOPERATIVE DIAGNOSIS: Acute cholecystitis POSTOPERATIVE DIAGNOSIS: Biliary colic OPERATION: Laparoscopic cholecystectomy SURGEON: HUSEYIN IRENE ANESTHESIA: GA TISSUE REMOVED OR ALTERED: Gallbladder COMPLICATIONS: None ESTIMATED BLOOD LOSS: minimal INTRAOPERATIVE FINDINGS: Markedly distended gallbladder PROCEDURE: Informed consent was obtained. Patient was brought to the operating room placed operating table in supine position. After satisfactory induction of general anesthesia, patient's abdomen was prepped and draped in usual sterile fashion. A infraumbilical midline incision was made and dissection carried down to the fascia the peritoneal cavity entered without difficulty. Perdue trocar was inserted. Pneumoperitoneum produced good patient toleration. 5 mm trocar was placed in the subxiphoid location.Two 5 mm trochars were placed in the right subcostal location. The gallbladder appeared markedly distended and the wall appeared mildly edematous. The gallbladder was grasped and retracted cephalad over the dome of the liver. The infundibulum of the gallbladder was grasped retracted laterally and inferiorly thus exposing calot's triangle. The cystic duct gallbladder junction was clearly identified and the cystic duct was clipped and divided. Cystic artery was likewise taken. The gallbladder was taken off the gallbladder bed using the hook electrocautery technique. The gallbladder was removed with an Endobag through the Perdue trocar site fascial defect. Hemostasis appeared excellent. All trochars were removed under the direct vision a laparoscope to ensure hemostasis. The Perdue trocar site fascial defect was closed with interrupted Vicryl sutures. All skin incisions were closed with subcuticular interrupted Monocryl sutures. Marcaine was injected at the port sites. Patient tolerated procedure well no apparent complications and was taken to the recovery area in stable condition.
[2017-03-01] MEDS: FENTANYL CITRATE INJ/PF 100 MCG/2 ML AMPUL ONE ×2 (11:17→11:30)
[2017-03-01] MEDS ORDERED: SUCCINYLCHOLINE CHLORIDE INJ 200 MG/10 ML VIAL ONE (12:06)
[2017-03-01] MEDS ORDERED: ROCURONIUM BROMIDE INJ 50 MG/5 ML VIAL IV ONE (12:06)
[2017-03-01] MEDS ORDERED: NEOSTIGMINE METHYLSULFATE 10 MG/10 ML VIAL ONE (12:06)
[2017-03-01] MEDS ORDERED: GLYCOPYRROLATE INJ 0.4 MG/2 ML VIAL ONE (12:06)
[2017-03-01] MEDS: MORPHINE SULFATE 10 MG/ML INJ IV PRN ×3 (13:26→22:06)
[2017-03-01] MEDS: ONDANSETRON HCL INJ/PF 4 MG/2 ML SDV IV PRN ×2 (17:57→22:06)
--- NOTE | 2017-03-01 20:34 | PDOC PROGRESS REPORT ---
Subjective Progress Note for:: 03/01/17 Subjective:: Abdominal pain improved somewhat. Physical Exam Vital Signs: Temp Pulse Resp BP Pulse Ox 97.4 F 73 18 111/52 L 99 03/01/17 17:30 03/01/17 17:30 03/01/17 17:30 03/01/17 17:30 03/01/17 17:30 Intake & Output 02/28/17 03/01/17 03/02/17 06:59 06:59 06:59 Intake Total 0 2627 Output Total 1075 Balance 0 1552 Weight 86.9 kg General appearance: PRESENT: no acute distress, cooperative Respiratory exam: PRESENT: clear to auscultation indio Cardiovascular exam: PRESENT: RRR GI/Abdominal exam: PRESENT: other - Soft, nondistended, tenderness at the incision sites. No peritoneal signs. Extremities exam: PRESENT: other - No swelling no tenderness Results Laboratory Results: 03/01/17 05:06 03/01/17 05:06 03/01/17 03/01/17 05:06 05:06 WBC 7.6 RBC 3.81 Hgb 11.1 L Hct 33.7 L MCV 88 MCH 29.2 MCHC 33.0 RDW 13.7 Plt Count 279 Seg Neutrophils % 36.2 L Lymphocytes % 54.5 H Monocytes % 6.2 Eosinophils % 2.6 Basophils % 0.5 Absolute Neutrophils 2.7 Absolute Lymphocytes 4.1 Absolute Monocytes 0.5 Absolute Eosinophils 0.2 Absolute Basophils 0.0 Sodium 138.5 Potassium 4.4 Chloride 106 Carbon Dioxide 28 Anion Gap 5 BUN 14 Creatinine 0.72 Est GFR ( Amer) > 60 Est GFR (Non-Af Amer) > 60 Glucose 86 Calcium 8.7 Total Bilirubin 0.5 AST 16 ALT 26 Alkaline Phosphatase 50 Total Protein 6.2 L Albumin 3.6 Amylase 55 Lipase 225.0 Impressions: Abdomen Ultrasound 02/28/17 17:30 IMPRESSION: NORMAL RIGHT UPPER QUADRANT ULTRASOUND. Assessment & Plan - Diagnosis (1) Cholelithiasis Qualifiers: Cholelithiasis location: gallbladder Cholecystitis presence: with cholecystitis Cholecystitis acuity: acute Biliary obstruction: without biliary obstruction Qualified Code(s): K80.00 - Calculus of gallbladder with acute cholecystitis without obstruction Plan: Status post laparoscopic cholecystectomy. Patient still has some abdominal pain. Will observe overnight if she feels better we'll plan to discharge patient home tomorrow.
--- NOTE | 2017-03-01 22:59 | PDOC PROGRESS REPORT ---
Subjective Progress Note for:: 03/01/17 Subjective:: Complain of a pressure chest pain radiating to the right arm that has been present since late this afternoon and appears to be worsening. Mild associated shortness of breath although she looks comfortable. O2 sat is 98% on room air Physical Exam Vital Signs: Temp Pulse Resp BP Pulse Ox 97.4 F 73 18 111/52 L 99 03/01/17 17:30 03/01/17 17:30 03/01/17 17:30 03/01/17 17:30 03/01/17 17:30 Intake & Output 02/28/17 03/01/17 03/02/17 06:59 06:59 06:59 Intake Total 0 2627 Output Total 1075 Balance 0 1552 Weight 86.9 kg General appearance: PRESENT: no acute distress, cooperative Respiratory exam: PRESENT: clear to auscultation indio Cardiovascular exam: PRESENT: RRR GI/Abdominal exam: PRESENT: other - Soft, minimally distended, tenderness diffusely without peritoneal signs. Extremities exam: PRESENT: other - No swelling no tenderness Results Laboratory Results: 03/01/17 05:06 03/01/17 03/01/17 05:06 05:06 WBC 7.6 RBC 3.81 Hgb 11.1 L Hct 33.7 L MCV 88 MCH 29.2 MCHC 33.0 RDW 13.7 Plt Count 279 Seg Neutrophils % 36.2 L Lymphocytes % 54.5 H Monocytes % 6.2 Eosinophils % 2.6 Basophils % 0.5 Absolute Neutrophils 2.7 Absolute Lymphocytes 4.1 Absolute Monocytes 0.5 Absolute Eosinophils 0.2 Absolute Basophils 0.0 Sodium 138.5 Potassium 4.4 Chloride 106 Carbon Dioxide 28 Anion Gap 5 BUN 14 Creatinine 0.72 Est GFR ( Amer) > 60 Est GFR (Non-Af Amer) > 60 Glucose 86 Calcium 8.7 Total Bilirubin 0.5 AST 16 ALT 26 Alkaline Phosphatase 50 Total Protein 6.2 L Albumin 3.6 Amylase 55 Lipase 225.0 Impressions: Abdomen Ultrasound 02/28/17 17:30 IMPRESSION: NORMAL RIGHT UPPER QUADRANT ULTRASOUND. Assessment & Plan - Diagnosis (1) Cholelithiasis Qualifiers: Cholelithiasis location: gallbladder Cholecystitis presence: with cholecystitis Cholecystitis acuity: acute Biliary obstruction: without biliary obstruction Qualified Code(s): K80.00 - Calculus of gallbladder with acute cholecystitis without obstruction (2) Chest pain Is this a current diagnosis for this admission?: YesPlan: Atypical chest pain. EKG demonstrates no evidence of ischemia. Will try Mylanta. If ineffective, will obtain chest CT to rule out pulmonary embolism. Pending hospitalist the consult for their input.
[2017-03-01 23:11] LABS: ALANINE AMINOTRANSFERASE 38 U/L (9-52); ALBUMIN 3.7 g/dL (3.5-5.0); ALKALINE PHOSPHATASE 49 U/L (38-126); ANION GAP 9 (5-19); ASPARTATE AMINO TRANSFERASE 27 U/L (14-36); BILIRUBIN,DIRECT 0.2 mg/dL (0.0-0.4); BILIRUBIN,TOTAL 0.4 mg/dL (0.2-1.3); BLOOD UREA NITROGEN 9 mg/dL (7-20); CALCIUM 9.2 mg/dL (8.4-10.2); CARBON DIOXIDE 26 mmol/L (22-30); CHLORIDE 103 mmol/L (98-107); CREATININE RESULT 0.57 mg/dL (0.52-1.25); GLUCOSE 96 mg/dL (75-110); LIPASE 51.9 U/L (23-300); POTASSIUM 4.4 mmol/L (3.6-5.0); SODIUM 138.4 mmol/L (137-145)
[2017-03-01 23:23] LABS: CREATINE KINASE MB 0.75 ng/mL (<4.55)
[2017-03-01 23:26] LABS: TROPONIN I < 0.012 ng/mL
[2017-03-01] MEDS ORDERED: DIAZEPAM INJ 10 MG/2 ML DISP.SYRIN IV ONE (23:30)
[2017-03-01] MEDS ORDERED: MAG HYDROX/AL HYDROX/SIMETH SUSP 30 ML UDCUP PO ONE (23:30)
[2017-03-02] MEDS: MORPHINE SULFATE 10 MG/ML INJ IV PRN ×2 (02:12→06:39)
--- NOTE | 2017-03-02 04:36 | PDOC H&P ---
History of Present Illness Admission Date/PCP: 02/28/17 20:00 NAHED CLEMENTE MD Patient complains of: Chest pain History of Present Illness: LIZ SHUKLA is a 26 year old female with a history of tobacco, obesity, irritable bowel syndrome constipation predominant, chronic pain and anxiety who is postop day 0 of uncomplicated cholecystectomy. Was having unremarkable postop recovery until developing retrosternal chest pain that radiated to the back and down the right arm associated with shortness of breath patient stating it felt like an elephant sitting on her chest with 4-5 intensity. She denies previous episode she denies alleviating or exacerbating factors. Past Medical History Cardiac Medical History: Denies: Coronary Artery Disease, Myocardial Infarction, Hypertension Pulmonary Medical History: Denies: Asthma, Bronchitis, Chronic Obstructive Pulmonary Disease (COPD), Pneumonia Neurological Medical History: Reports: Migraine Denies: Seizures Endocrine Medical History: Reports: Obesity GI Medical History: Reports: Gastroesophageal Reflux Disease, Other - Irritable bowel syndrome constipation predominant Musculoskeltal Medical History: Reports: Other - Chronic pain Denies: Arthritis Psychiatric Medical History: Reports: General Anxiety Disorder, Tobacco Dependency Hematology: Reports: Anemia Social History Information Source: Patient, [facility] Records Lives with: Family Smoking Status: Current Every Day Smoker Cigarettes Packs Per Day: 1 Number of Years Smokin Last Time Smoked: 02/28/2017 Frequency of Alcohol Use: Occasional Hx Recreational Drug Use: No Drugs: None Hx Prescription Drug Abuse: No - Advance Directive Resuscitation Status: Full Code Family History Family History: DM, Hyperlipidemia Parental Family History Reviewed: Yes Children Family History Reviewed: Yes Sibling(s) Family History Reviewed.: Yes Medication/Allergy Home Medications: Diazepam [Valium 5 mg Tablet] 5 mg PO DAILYP PRN 02/28/17 Ferrous Sulfate [Ferrous Sulfate] 325 mg PO DAILY 02/28/17 Omeprazole [Omeprazole] 40 mg PO Q12 02/28/17 Allergies/Adverse Reactions: No Known Allergies Allergy (Verified 02/28/17 10:22) Review of Systems Constitutional: ABSENT: chills, fever(s), headache(s), weight gain, weight loss Eyes: ABSENT: visual disturbances Ears: ABSENT: hearing changes Cardiovascular: ABSENT: chest pain, dyspnea on exertion, edema, orthropnea, palpitations Respiratory: ABSENT: cough, hemoptysis Gastrointestinal: ABSENT: abdominal pain, constipation, diarrhea, hematemesis, hematochezia, nausea, vomiting Genitourinary: ABSENT: dysuria, hematuria Musculoskeletal: ABSENT: joint swelling Integumentary: ABSENT: rash, wounds Neurological: ABSENT: abnormal gait, abnormal speech, confusion, dizziness, focal weakness, syncope Psychiatric: ABSENT: anxiety, depression, homidical ideation, suicidal ideation Endocrine: ABSENT: cold intolerance, heat intolerance, polydipsia, polyuria Hematologic/Lymphatic: ABSENT: easy bleeding, easy bruising Physical Exam Vital Signs: Temp Pulse Resp BP Pulse Ox 97.4 F 73 18 111/52 L 99 03/01/17 17:30 03/01/17 17:30 03/01/17 17:30 03/01/17 17:30 03/01/17 17:30 Intake & Output 02/28/17 03/01/17 03/02/17 11:59 11:59 11:59 Intake Total 2277 650 Output Total 195 880 Balance 2082 -230 Weight 86.9 kg General appearance: PRESENT: no acute distress, cooperative, mild distress, obese Head exam: PRESENT: atraumatic, normocephalic Eye exam: PRESENT: conjunctiva pink, EOMI, PERRLA. ABSENT: scleral icterus Ear exam: PRESENT: normal external ear exam Mouth exam: PRESENT: moist, tongue midline Neck exam: ABSENT: carotid bruit, JVD, lymphadenopathy, thyromegaly Respiratory exam: PRESENT: clear to auscultation indio. ABSENT: rales, rhonchi, wheezes Cardiovascular exam: PRESENT: RRR, other - Reproducible chest wall pain to palpation. ABSENT: diastolic murmur, rubs, systolic murmur Pulses: PRESENT: normal dorsalis pedis pul Vascular exam: PRESENT: normal capillary refill GI/Abdominal exam: PRESENT: diminished bowel sounds, hypoactive bowel sounds, soft, tenderness. ABSENT: ascites, distended, firm, guarding, hernia, Kevin's sign, rebound Rectal exam: PRESENT: deferred Extremities exam: PRESENT: full ROM. ABSENT: calf tenderness, clubbing, pedal edema Neurological exam: PRESENT: alert, awake, oriented to person, oriented to place , oriented to time, oriented to situation, CN II-XII grossly intact. ABSENT: motor sensory deficit Psychiatric exam: PRESENT: appropriate affect, normal mood. ABSENT: homicidal ideation, suicidal ideation Skin exam: PRESENT: dry, intact, warm. ABSENT: cyanosis, rash Results Laboratory Results: 03/01/17 05:06 03/01/17 22:46 03/01/17 03/01/17 03/01/17 05:06 05:06 22:46 WBC 7.6 RBC 3.81 Hgb 11.1 L Hct 33.7 L MCV 88 MCH 29.2 MCHC 33.0 RDW 13.7 Plt Count 279 Seg Neutrophils % 36.2 L Lymphocytes % 54.5 H Monocytes % 6.2 Eosinophils % 2.6 Basophils % 0.5 Absolute Neutrophils 2.7 Absolute Lymphocytes 4.1 Absolute Monocytes 0.5 Absolute Eosinophils 0.2 Absolute Basophils 0.0 Sodium 138.5 138.4 Potassium 4.4 4.4 Chloride 106 103 Carbon Dioxide 28 26 Anion Gap 5 9 BUN 14 9 Creatinine 0.72 0.57 Est GFR ( Amer) > 60 > 60 Est GFR (Non-Af Amer) > 60 > 60 Glucose 86 96 Calcium 8.7 9.2 Total Bilirubin 0.5 0.4 AST 16 27 ALT 26 38 Alkaline Phosphatase 50 49 Total Protein 6.2 L 6.0 L Albumin 3.6 3.7 Amylase 55 Lipase 225.0 51.9 03/01/17 03/01/17 22:46 22:46 Creatine Kinase 78 CK-MB (CK-2) 0.75 Troponin I < 0.012 Impressions: Abdomen Ultrasound 02/28/17 17:30 IMPRESSION: NORMAL RIGHT UPPER QUADRANT ULTRASOUND. Abdomen/Pelvis CT 03/02/17 00:00 IMPRESSION: Minimal, likely iatrogenic intraperitoneal free air and small free pelvic fluid ; recent cholecystectomy. Chest/Abdomen CTA 03/02/17 00:00 IMPRESSION: Small bibasilar atelectasis. No evidence of pulmonary emboli. Minimal free intraperitoneal gas, likely iatrogenic ; recent cholecystectomy. Assessment & Plan - Diagnosis (1) Chest pain Is this a current diagnosis for this admission?: YesPlan: New problem, concern for post operative state, tobacco, immobility and shortness of breath. I'll obtain CTA for evaluation of PE. Otherwise serial cardiac enzymes however I suspect her pain is shepherded to and uncontrolled anxiety state given reproducible chest wall pain to light palpation. Possible element of atelectasis incentive spirometry ordered (2) Tobacco abuse Is this a current diagnosis for this admission?: YesPlan: Tobacco Dependence patient received tobacco cessation counseling and offered nicotine replacement options (3) Irritable bowel syndrome Is this a current diagnosis for this admission?: YesPlan: Suggest lactulose 20 daily in addition to Bentyl 20 mg 3 times a day and reassurance (4) GERD (gastroesophageal reflux disease) Is this a current diagnosis for this admission?: YesPlan: Ambulation, proton pump inhibitor of choice twice a day (5) Chronic pain Is this a current diagnosis for this admission?: YesPlan: Outpatient regiment strongly suggest early mobilization (6) Cholelithiasis Qualifiers: Cholelithiasis location: gallbladder Cholecystitis presence: with cholecystitis Cholecystitis acuity: acute Biliary obstruction: without biliary obstruction Qualified Code(s): K80.00 - Calculus of gallbladder with acute cholecystitis without obstruction Plan: Prior surgery (7) Hypertension Qualifiers: Hypertension type: essential hypertension Qualified Code(s): I10 - Essential (primary) hypertension Is this a current diagnosis for this admission?: YesPlan: Hydralazine when necessary (8) Anxiety Is this a current diagnosis for this admission?: YesPlan: Resume outpatient Valium with when necessary trazodone - Time Time Spent: 50 to 70 Minutes
[2017-03-02 05:31] LABS: CREATINE KINASE MB 0.62 ng/mL (<4.55)
[2017-03-02 05:36] LABS: TROPONIN I < 0.012 ng/mL
[2017-03-02] MEDS: NORMAL SALINE 1000 ML 1,000 ML IV PRN ×2 (06:39→16:25)
[2017-03-02] MEDS: OXYCODONE-ACETAMINOPHEN 5-325 MG TABLET PO PRN ×2 (09:47→15:07)
[2017-03-02 11:27] LABS: CREATINE KINASE MB 0.62 ng/mL (<4.55)
[2017-03-02 11:30] LABS: TROPONIN I < 0.012 ng/mL
--- NOTE | 2017-03-02 11:34 | PDOC PROGRESS REPORT ---
Subjective Progress Note for:: 03/02/17 Subjective:: Chest pain has significantly improved. Patient reports heartburn. Patient had indigestion as well. No shortness of breath or diaphoresis. No chills or fever. CTA of the chest showed no pulmonary embolism. Cardiac enzymes remained negative. Patient tolerating oral intake. Patient passing gas. Physical Exam Vital Signs: Temp Pulse Resp BP Pulse Ox 97.9 F 71 20 105/58 L 98 03/02/17 07:06 03/02/17 07:06 03/02/17 07:06 03/02/17 07:06 03/02/17 07:06 Intake & Output 03/01/17 03/02/17 03/03/17 06:59 06:59 06:59 Intake Total 0 5327 Output Total 2475 Balance 0 2852 Weight 86.9 kg General appearance: PRESENT: no acute distress, cooperative, obese Head exam: PRESENT: normocephalic Eye exam: PRESENT: EOMI Mouth exam: PRESENT: moist, neck supple Neck exam: ABSENT: JVD Respiratory exam: PRESENT: clear to auscultation indio. ABSENT: rhonchi, wheezes Cardiovascular exam: PRESENT: RRR. ABSENT: gallop GI/Abdominal exam: PRESENT: hyperactive bowel sounds, soft Extremities exam: ABSENT: pedal edema Neurological exam: PRESENT: alert, awake, oriented to person, oriented to place , oriented to time, oriented to situation Skin exam: PRESENT: dry, warm. ABSENT: cyanosis Results Laboratory Results: 03/01/17 05:06 03/01/17 22:46 03/01/17 22:46 Sodium 138.4 Potassium 4.4 Chloride 103 Carbon Dioxide 26 Anion Gap 9 BUN 9 Creatinine 0.57 Est GFR ( Amer) > 60 Est GFR (Non-Af Amer) > 60 Glucose 96 Calcium 9.2 Total Bilirubin 0.4 AST 27 ALT 38 Alkaline Phosphatase 49 Total Protein 6.0 L Albumin 3.7 Lipase 51.9 03/01/17 03/01/17 03/02/17 22:46 22:46 04:50 Creatine Kinase 78 74 CK-MB (CK-2) 0.75 Troponin I < 0.012 03/02/17 03/02/17 04:50 10:38 Creatine Kinase 74 CK-MB (CK-2) 0.62 Troponin I < 0.012 Impressions: Abdomen Ultrasound 02/28/17 17:30 IMPRESSION: NORMAL RIGHT UPPER QUADRANT ULTRASOUND. Abdomen/Pelvis CT 03/02/17 00:00 IMPRESSION: Minimal, likely iatrogenic intraperitoneal free air and small free pelvic fluid ; recent cholecystectomy. Chest/Abdomen CTA 03/02/17 00:00 IMPRESSION: Small bibasilar atelectasis. No evidence of pulmonary emboli. Minimal free intraperitoneal gas, likely iatrogenic ; recent cholecystectomy. Assessment & Plan - Diagnosis (1) Chest pain Qualifiers: Chest pain type: unspecified Qualified Code(s): R07.9 - Chest pain, unspecified Is this a current diagnosis for this admission?: Yes (2) Anxiety Is this a current diagnosis for this admission?: Yes (3) GERD (gastroesophageal reflux disease) Qualifiers: Esophagitis presence: esophagitis presence not specified Qualified Code(s): K21.9 - Gastro-esophageal reflux disease without esophagitis Is this a current diagnosis for this admission?: Yes (4) Irritable bowel syndrome Qualifiers: Irritable bowel syndrome type: unspecified Qualified Code(s): K58.9 - Irritable bowel syndrome without diarrhea Is this a current diagnosis for this admission?: Yes - Time Time Spent with patient: 25-34 minutes - Plan Summary Plan Summary: I am going to start the patient on proton pump inhibitor twice a day. She was on Prilosec at home twice daily. We will begin incentive spirometry at bedside. CTA of the chest negative for pulmonary embolism. Cardiac enzymes were negative. EKG shows no acute changes suggestive of ischemia. We will sign off from her case. Thank you so much for letting us participate in her care . Please reconsult us PRN.
--- NOTE | 2017-03-02 12:04 | EKG REPORT ---
SEVERITY:- NORMAL ECG - SINUS RHYTHM : Confirmed by: Milagro Cornejo 02-Mar-2017 12:03:07
[2017-03-02] MEDS ORDERED: LANSOPRAZOLE 30 MG TAB.RAP.DR PO SCH (17:00)
--- NOTE | 2017-03-02 17:48 | PROGRESS NOTE E ---
Progress Note NAME: LIZ SHUKLA : 1990 AGE: 26Y DATE: 03/02/2017 ROOM: 414 SUBJECTIVE: The patient is one day post laparoscopic cholecystectomy by Dr. Morales. She is still complaining of some discomfort in her abdomen going to her chest but less in severity compared to preop. No problems as far as the surgery is concerned according to Dr. Morales. She is tolerating clear liquids right now, and the nurse just called me and patient asking for increase in diet, so I just ordered for her to have a regular diet. I told her if she feels that her pains have subsided and the pain is controlled by p.o. pain meds, that she could go home today or tomorrow. She had a workup to rule out any PE and all of this was negative. DICTATING PHYSICIAN: TRANG LOPEZ M.D. [id number] PHY#: [id number] ID: [id number] JOB#: [id number] ACCT: [id number] cc: >
[2017-03-02 19:20] VITALS: BP 115/55
--- NOTE | 2017-03-02 23:13 | DISCHARGE SUMMARY E ---
Discharge Summary NAME: LIZ SHUKLA : 1990 AGE: 26Y ADMITTED: 02/28/2017 DISCHARGED: 03/02/2017 FINAL DIAGNOSES: Acute calculous cholecystitis. PROCEDURE: 03/01/17: Laparoscopic cholecystectomy done by Dr. Morales. SUMMARY: This is a 26-year-old female with right upper quadrant pains, noted to have gallstones. She then underwent laparoscopic cholecystectomy on 03/01/[address] Morales. Postoperatively she did well. Today her pains have subsided though still taking some p.o. pain medications. She is able to eat a regular diet. All her incision sites are clean and dry. She remains afebrile. PLAN: 1. Continue with the regular diet. 2. Activity: Avoid lifting more than 10 pounds for the next week and then gradually increase weight that she can carry. She has a 25-pound, [id number] child and I told her to hold off carrying her kid for the next 2 weeks. 3. Prescription for Prevacid and Percocet was given. 4. She is to call the [facility] for followup in the next week or two. DICTATING PHYSICIAN: TRANG LOPEZ M.D. [id number] PHY#: [id number] ID: [id number] JOB#: [id number] ACCT: [id number] cc:TRANG LOPEZ M.D., MARSHALL B. M.D. >
== END 2017-03-02 19:45 | disposition home or self-care (01) ==
LOC: ER 17:07 → EH 20:00 → INTOOBSV 21:20 → UNDOADMOB 21:20 → EH 21:20 → 4N 03-01 01:44 → EH 03-01 01:44 → 4N 03-01 01:44
PROVIDERS: ATTEND Surgery
PROC: 0FT44ZZ Resection of Gallbladder, Percutaneous Endoscopic Approach (ICD-10-PCS; principal; 2017-03-01 09:30)
DX: K80.00 Calculus of gallbladder with acute cholecystitis without obstruction (principal); I97.89 Other postprocedural complications and disorders of the circulatory system, not elsewhere classified; R07.89 Other chest pain; R07.2 Precordial pain; J95.89 Other postprocedural complications and disorders of respiratory system, not elsewhere classified; R06.02 Shortness of breath; Y83.6 Removal of other organ (partial) (total) as the cause of abnormal reaction of the patient, or of later complication, without mention of misadventure at the time of the procedure; F17.210 Nicotine dependence, cigarettes, uncomplicated; K21.9 Gastro-esophageal reflux disease without esophagitis; K58.1 Irritable bowel syndrome with constipation; G89.29 Other chronic pain; F41.1 Generalized anxiety disorder; R14.3 Flatulence; Z83.79 Family history of other diseases of the digestive system; Z79.899 Other long term (current) drug therapy
CPT/HCPCS: 47562; 99285; 96374; 36415 ×3; 87086; 82553 ×2; 82150; 82550 ×2; 83690 ×2; 84703; 85025 ×2; 80076; 80048; 80053 ×2; 81001; 84484 ×2; 88304 ×2; 76705; 71275; 74177; 93005; 94799; 93010; J2250; J0690 ×2; J3490 ×2; J1100; J3360; S0119; J3010 ×2; J1885; J2270 ×2; J1170 ×2; J0330; J2405; J7030 ×3; J2704; 790; G0378

== ENCOUNTER → 2017-02-28 | Outpatient (CLI) | payer OTHER, MEDICAID ==
[2017-02-28 10:55] LABS: HEMATOCRIT 37.1 % (36.0-47.0); HEMOGLOBIN 12.3 g/dL (12.0-15.5); HGB HCT DIFFERENCE -0.2; MEAN CORPUSCULAR HEMOGLOBIN 28.7 pg (27.0-33.4); MEAN CORPUSCULAR HGB CONC 33.1 g/dL (32.0-36.0); MEAN CORPUSCULAR VOLUME 87 fl (80-97); RED BLOOD COUNT 4.29 10^6/uL (3.72-5.28); RED CELL DISTRIBUTION WIDTH 13.5 % (11.5-14.0); WHITE BLOOD COUNT 7.6 10^3/uL (4.0-10.5)
[2017-02-28 11:15] LABS: ALANINE AMINOTRANSFERASE 20 U/L (9-52); ALBUMIN 4.5 g/dL (3.5-5.0); ALKALINE PHOSPHATASE 56 U/L (38-126); AMYLASE 53 U/L (30-110); ANION GAP 14 (5-19); ASPARTATE AMINO TRANSFERASE 16 U/L (14-36); BILIRUBIN,DIRECT 0.2 mg/dL (0.0-0.4); BILIRUBIN,TOTAL 0.3 mg/dL (0.2-1.3); BLOOD UREA NITROGEN 11 mg/dL (7-20); CALCIUM 9.7 mg/dL (8.4-10.2); CARBON DIOXIDE 25 mmol/L (22-30); CHLORIDE 101 mmol/L (98-107); CREATININE RESULT 0.72 mg/dL (0.52-1.25); GLUCOSE 72 mg/dL (75-110); POTASSIUM 4.8 mmol/L (3.6-5.0); SODIUM 139.9 mmol/L (137-145); TOTAL PROTEIN 6.8 g/dL (6.3-8.2)
--- NOTE | 2017-03-08 09:17 | CONSULTATION REPORT E ---
Consultation Report NAME: LIZ SHUKLA : 1990 AGE: 26Y DATE: 03/07/2017 TO: SUSAN CANSECO M.D. FROM: LAUREL IRENE M.D. Requesting Physician REASON FOR CONSULTATION: Abdominal pain. HISTORY OF PRESENT ILLNESS: The patient is a female with history of anxiety, duodenal ulcer, and gastroesophageal reflux disease who apparently started to develop increasing abdominal pain this weekend. The patient had a recent laparoscopic cholecystectomy last week and was discharged home improved in terms of abdominal pain. She has residual pain from the wound site. Apparently this weekend she started having increasing abdominal cramps with associated flank pain on the left. There is urinary urgency but no dysuria or hematuria. Patient reports different type of pain as well on the side of the wounds from recent cholecystectomy. The patient reports sometimes it hurts on the abdomen when she takes a deep breath. She has a low-grade fever and nausea but no vomiting. She did have some leg cramps on the lower extremities. Otherwise, she voiced no other complaints. The patient was seen by Surgical Service in followup and was directly admitted. A consultation was made for questionable fibromyalgia or acute viral syndrome. PAST MEDICAL HISTORY: Gallstones, anxiety, anemia, duodenal ulcer, gastroesophageal reflux disease, and oral thrush. PAST SURGICAL HISTORY: Laparoscopic cholecystectomy, colonoscopy, EGD. ALLERGIES: No reported drug allergies. SOCIAL HISTORY: The patient is a chronic smoker. There is occasional alcohol use but no drug abuse. FAMILY HISTORY: Diabetes. MEDICATIONS AT HOME: Iron tablets. CURRENT MEDICATIONS: 1. Dilaudid 1 mg IV every 2 hours as needed. 2. Zofran 4 mg IV every 4 hours as needed. 3. Pepcid 20 mg IV twice a day. REVIEW OF SYSTEMS: The patient denies any myalgias or arthralgias. No muscle aches or pain other than the discomfort sometimes she has in the legs associated with cramping. Likewise, she may have some mild leg discomfort intermittently. No dizziness, blurring of vision or headache. No sinus congestion, postnasal drip, sore throat, cough or cold. There is no neck stiffness. No chest pain, palpitations, PND or orthopnea. There is no shortness of breath or wheezing. No melena, hematochezia or hematemesis. No hematuria. No vaginal discharge or bleeding. No heat and cold intolerance. No profuse sweating. No weight gain or weight loss. No polyuria, polydipsia, polyphagia. No focal weakness, swallowing difficulty or slurring of speech. All other systems reviewed with the patient other than stated above were negative. PHYSICAL EXAMINATION: GENERAL: The patient is conscious and coherent. She is not in acute distress. VITAL SIGNS: Blood pressure 141/77, pulse 83, respirations 20, temperature 97.6 degrees Fahrenheit. HEENT: Normocephalic, atraumatic. [place] palpebral conjunctivae. Anicteric sclerae. Pupils are reactive to light. No nasal or oral discharge. No pharyngeal congestion. NECK: Supple with no JVD or bruit. No anterior neck mass was noted. CHEST: Symmetrical in expansion with no retraction. LUNGS: Clear to auscultation bilateral. HEART: Regular. Faint 2/6 systolic ejection murmur in the left sternal border. ABDOMEN: Obese, soft. Mild discomfort diffusely but mostly on the surgical wounds. Patient has discomfort to palpation on the left flank with questionable CVA tenderness. Bowel sounds are normoactive. EXTREMITIES: Lower extremity trace pretibial edema. Pulses are present bilaterally. Mucosa and nail beds with no cyanosis. LABORATORY: WBC is 8.7, platelets 318, hemoglobin 11, hematocrit 33.8. Creatinine is normal. Sodium and potassium are normal. Total protein is normal. Liver function panel is normal. ASSESSMENT: 1. Abdominal pain. 2. Low-grade fever. 3. Recent laparoscopic cholecystectomy. RECOMMENDATIONS: Agree with HIDA scan and CT of the abdomen and pelvis. In the meantime, the patient reports urinary tract symptoms. We will, therefore, obtain a urinalysis and a culture. Likely the patient had recent Elliott catheterization from recent surgery. Possible urinary tract infection is present. We will also obtain a chest x-ray. Patient reports pleuritic kind of pain but no other symptoms suggestive of pneumonia. Although pneumonia can cause abdominal pain with referred pain to the right lower quadrant, possibly the patient's discomfort is related to recent surgery. Doubt this is fibromyalgia. She does not have typical symptoms. I also do not think that the patient has a current viral syndrome at this time. Thank you so much for this consultation. We will follow the patient with you. DICTATING PHYSICIAN: SUSAN CANSECO M.D. [id number] PHY#: [id number] ID: [id number] JOB#: [id number] ACCT: [id number] cc:SUSAN CANSECO M.D. >
--- NOTE | 2017-03-08 10:18 | HISTORY AND PHYSICAL E ---
History and Physical NAME: LIZ SHUKLA : 1990 AGE: 26Y ADMITTED: 03/07/2017 ROOM: REASON FOR ADMISSION: Abdominal pain. HISTORY OF PRESENT ILLNESS: The patient is a 26-year-old female who had underwent a laparoscopic cholecystectomy on 03/01/2017 for right upper quadrant abdominal pain and cholelithiasis. Surgery went well without any problems. Postoperatively, the patient did have increasing abdominal pain and had a CT scan of the abdomen and pelvis which only showed postoperative changes without any pathology. She was watched another day and then discharged home. She continued to have abdominal pain at home. The patient's pain is throughout the abdomen but around the umbilicus and right upper quadrant. She also has pain radiating to the right side of her back. Another issue is some complaints of swelling in the bilateral lower extremities. She has had mild nausea but no vomiting. She has not had any significant diarrhea. She had a low-grade temperature of 100. Past surgical history, medical problems, medications, allergies to medications, family history are in her previous history and physical of recent admission. PHYSICAL EXAMINATION: VITAL SIGNS: Temperature is 97.9. Heart rate 81. Blood pressure 113/68. GENERAL: The patient is sitting up in bed and in not any distress. HEENT: Eyes nonicteric. NECK: No lymphadenopathy. HEART: Regular. LUNGS: Clear. BACK: Nontender. ABDOMEN: Soft. Mild tenderness around the umbilical area. There is some bruising. Incisions are clean without evidence of infection. EXTREMITIES: No edema or cyanosis. NEUROLOGICAL: The patient appears to be neurologically intact without any deficits. PSYCHOLOGICAL: The patient is coherent, cooperative, and appears to answer questions fully. DIAGNOSTIC DATA: CBC and chemistry panel is pending at this time. ASSESSMENT: 1. Status post laparoscopic cholecystectomy approximately 6 days ago with continued abdominal pain of unknown etiology. We will start with a workup including a hepatobiliary scan. 2. Lower extremity swelling. I will get bilateral lower extremity duplex to rule out a deep venous thrombosis. PLAN: 1. The patient is being admitted to the hospital. 2. NPO. 3. IV fluids. 4. Hepatobiliary scan in the morning. 5. Ultrasound duplex to bilateral extremities to rule out DVT. DICTATING PHYSICIAN: ABUNDIO BURKETT M.D. [id number] Y#: [id number] ID: [id number] JOB#: [id number] ACCT: [id number] cc:ABUNDIO BURKETT M.D., TIMOTHY M.D. >
--- NOTE | 2017-03-08 20:31 | PROGRESS NOTE E ---
Progress Note NAME: LIZ SHUKLA : 1990 AGE: 26Y DATE: 03/08/2017 ROOM: SUBJECTIVE: The patient's abdominal pain is still present but on and off. The patient denies any nausea or vomiting. No temperature spikes. No chills or fever. Denies painful urination. Denies hematuria. Denies diarrhea. OBJECTIVE: VITAL SIGNS: Blood pressure 101/73. Pulse 82. Respirations 16. Temperature 98.3. GENERAL: The patient is obese. She is not in acute distress. NECK: No jugular venous distention. LUNGS: Sounds are clear. HEART: Regular with no gallops. ABDOMEN: Soft, nondistended. Bowel sounds are present. LOWER EXTREMITIES: Nonedematous. Mucosa and nail beds with no cyanosis. LABORATORY: Urinalysis was negative. Chest x-ray: No acute findings reported. ASSESSMENT: 1. ABDOMINAL PAIN. 2. LOW-GRADE FEVER. 3. RECENT LAPAROSCOPIC CHOLECYSTECTOMY. RECOMMENDATIONS: The patient's urinalysis was negative. Unlikely urinary source of fever. Chest x-ray did not reveal any acute infiltrate as well so unlikely a referred pain coming from pneumonia. Symptoms not suggestive of fibromyalgia. Likewise, acute viral syndrome if present normally resolves by itself on its course. Thank you so much for this consultation. We will sign off from the case. Please consult us as needed. DICTATING PHYSICIAN: SUSAN CANSECO M.D. [id number] PHY#: [id number] ID: [id number] JOB#: [id number] ACCT: [id number] cc: >
== END ==
LOC: OD 09:09 → EDSTATUS 03-07 15:00
PROVIDERS: ATTEND Surgery
DX: Z01.818 Encounter for other preprocedural examination (principal); K26.9 Duodenal ulcer, unspecified as acute or chronic, without hemorrhage or perforation; F41.9 Anxiety disorder, unspecified; K80.20 Calculus of gallbladder without cholecystitis without obstruction; B37.0 Candidal stomatitis; D64.9 Anemia, unspecified; K21.9 Gastro-esophageal reflux disease without esophagitis
CPT/HCPCS: 36415; 80048; 80076; 82150; 85027; 86850; 86900; 86901

== ENCOUNTER → 2017-03-05 | Outpatient (CLI) | payer OTHER, MEDICAID ==
[2017-03-05 12:34] LABS: ABSOLUTE EOSINOPHILS # (AUTO) 0.1 10^3/uL (0.0-0.6); ABSOLUTE LYMPHOCYTES (AUTO) 2.5 10^3/uL (0.5-4.7); ABSOLUTE MONOCYTES (AUTO) 0.5 10^3/uL (0.1-1.4); ABSOLUTE NEUT (AUTO) 5.7 10^3/uL (1.7-8.2); BASOPHILS % (AUTO) 0.4 % (0-2); EOSINOPHILS % (AUTO) 1.6 % (0-6); HEMATOCRIT 33.2 % (36.0-47.0); HEMOGLOBIN 10.9 g/dL (12.0-15.5); HGB HCT DIFFERENCE -0.5; LYMPHOCYTES % (AUTO) 28.1 % (13-45); MEAN CORPUSCULAR HEMOGLOBIN 28.7 pg (27.0-33.4); MEAN CORPUSCULAR HGB CONC 32.8 g/dL (32.0-36.0); MEAN CORPUSCULAR VOLUME 88 fl (80-97); MONOCYTES % (AUTO) 5.2 % (3-13); RED BLOOD COUNT 3.79 10^6/uL (3.72-5.28); RED CELL DISTRIBUTION WIDTH 13.3 % (11.5-14.0); SEGMENTED NEUTROPHILS % (AUTO) 64.7 % (42-78); WHITE BLOOD COUNT 8.8 10^3/uL (4.0-10.5)
[2017-03-05 12:56] LABS: ALANINE AMINOTRANSFERASE 59 U/L (9-52); ALBUMIN 3.8 g/dL (3.5-5.0); ALKALINE PHOSPHATASE 50 U/L (38-126); AMYLASE 40 U/L (30-110); ANION GAP 11 (5-19); ASPARTATE AMINO TRANSFERASE 35 U/L (14-36); BILIRUBIN,DIRECT 0.3 mg/dL (0.0-0.4); BILIRUBIN,TOTAL 0.3 mg/dL (0.2-1.3); BLOOD UREA NITROGEN 9 mg/dL (7-20); CALCIUM 9.5 mg/dL (8.4-10.2); CARBON DIOXIDE 28 mmol/L (22-30); CHLORIDE 102 mmol/L (98-107); CREATININE RESULT 0.68 mg/dL (0.52-1.25); GLUCOSE 70 mg/dL (75-110); LIPASE 57.9 U/L (23-300); POTASSIUM 4.2 mmol/L (3.6-5.0); SODIUM 140.5 mmol/L (137-145); TOTAL PROTEIN 6.2 g/dL (6.3-8.2)
== END ==
LOC: OD 11:30
PROVIDERS: ATTEND Surgery
DX: R10.9 Unspecified abdominal pain (principal)
CPT/HCPCS: 36415; 80053; 82150; 83690; 85025

== ENCOUNTER 2017-03-07 10:56 | Inpatient (IN) | payer OTHER, MEDICAID ==
[2017-03-07] MEDS ORDERED: DEXTROSE 5%-1/2 NORMAL SALINE 1,000 ML IV PRN (21:31)
[2017-03-07] MEDS ORDERED: ONDANSETRON HCL INJ/PF 4 MG/2 ML SDV IV PRN (21:34)
[2017-03-07] MEDS: HYDROMORPHONE HCL INJ/PF 2 MG/ML AMPULE IV PRN ×2 (21:54→23:59)
[2017-03-07] MEDS: FAMOTIDINE INJ/PF 20 MG/2 ML SDV IV SCH (21:56)
[2017-03-08] MEDS: HYDROMORPHONE HCL INJ/PF 2 MG/ML AMPULE IV PRN ×4 (05:48→12:14)
[2017-03-08] MEDS ORDERED: ACETAMINOPHEN 325 MG TABLET PO PRN (09:28)
[2017-03-08] MEDS: FAMOTIDINE INJ/PF 20 MG/2 ML SDV IV SCH (09:47)
[2017-03-08 12:49] LABS: HEMATOCRIT 33.8 % (36.0-47.0); HGB HCT DIFFERENCE -0.8; MEAN CORPUSCULAR HEMOGLOBIN 28.5 pg (27.0-33.4); MEAN CORPUSCULAR HGB CONC 32.6 g/dL (32.0-36.0); MEAN CORPUSCULAR VOLUME 87 fl (80-97); RED BLOOD COUNT 3.87 10^6/uL (3.72-5.28); RED CELL DISTRIBUTION WIDTH 13.8 % (11.5-14.0); WHITE BLOOD COUNT 8.7 10^3/uL (4.0-10.5)
[2017-03-08 13:16] LABS: APPEARANCE,URINE CLEAR; BILIRUBIN,URINE NEGATIVE (NEGATIVE); GLUCOSE, URINE NEGATIVE (NEGATIVE); KETONES,URINE NEGATIVE (NEGATIVE); LEUKOCYTE ESTERASE,URINE NEGATIVE (NEGATIVE); NITRITE,URINE NEGATIVE (NEGATIVE); PROTEIN,URINE NEGATIVE (NEGATIVE); URINE SPECIFIC GRAVITY 1.001; UROBILINOGEN,URINE NEGATIVE mg/dL (<2.0)
--- NOTE | 2017-03-08 13:31 | PDOC PROGRESS REPORT ---
Subjective Progress Note for:: 03/08/17 Subjective:: feels cheryl. still with epigastric abdominal pain, very hungry. Physical Exam Vital Signs: Temp Pulse Resp BP Pulse Ox 97.9 F 79 16 108/56 L 99 03/08/17 08:02 03/08/17 08:02 03/08/17 08:02 03/08/17 08:02 03/08/17 08:02 Intake & Output 03/07/17 03/08/17 03/09/17 06:59 06:59 06:59 Weight 81.647 kg General appearance: PRESENT: no acute distress, cooperative Respiratory exam: PRESENT: clear to auscultation [place] Cardiovascular exam: PRESENT: RRR GI/Abdominal exam: PRESENT: other - soft, nd, mild epigastric tenderness, no peritoneal signs. Results Laboratory Results: 03/07/17 13:13 03/07/17 03/07/17 03/07/17 13:13 13:13 18:20 WBC 8.7 RBC 3.87 Hgb 11.0 L Hct 33.8 L MCV 87 MCH 28.5 MCHC 32.6 RDW 13.8 Plt Count 318 Lipase 47.2 Urine Color COLORLESS Urine Appearance CLEAR Urine pH 8.0 Ur Specific [place] 1.001 Urine Protein NEGATIVE Urine Glucose (UA) NEGATIVE Urine Ketones NEGATIVE Urine Blood NEGATIVE Urine Nitrite NEGATIVE Ur Leukocyte Esterase NEGATIVE Urine WBC (Auto) 0 Urine RBC (Auto) 0 Impressions: Chest X-Ray 03/07/17 00:00 IMPRESSION: NO SIGNIFICANT RADIOGRAPHIC FINDING IN THE CHEST. Abdomen/Pelvis CT 03/08/17 00:00 IMPRESSION: Small free pelvic fluid. Otherwise, unremarkable CT of the abdomen and pelvis. Hepatobiliary Scan Nuclear Medicine 03/08/17 07:00 IMPRESSION: NORMAL STUDY WITHOUT CYSTIC OR COMMON DUCT OBSTRUCTION. NO EVIDENCE OF BILE LEAK. Assessment & Plan - Diagnosis (1) Abdominal pain Qualifiers: Abdominal location: epigastric Qualified Code(s): R10.13 - Epigastric pain Is this a current diagnosis for this admission?: YesPlan: ct and hida normal. cxr nl. pt looks better. labs normal. uncertain of etiology of abdominal pain. ? gastritis. noted with abnl on EGD by GI. d/c home on ppi. arrange f/u with GI (Dr Syed).
[2017-03-08 13:54] VITALS: BP 91/60
[2017-03-08 15:16] LABS: CALCIUM 9.6 mg/dL (8.4-10.2)
[2017-03-08 15:17] LABS: BLOOD UREA NITROGEN 8 mg/dL (7-20); CHLORIDE 103 mmol/L (98-107); CREATININE RESULT 0.69 mg/dL (0.52-1.25); GLUCOSE 91 mg/dL (75-110); POTASSIUM 4.2 mmol/L (3.6-5.0)
[2017-03-08 15:18] LABS: ALANINE AMINOTRANSFERASE 45 U/L (9-52); ALBUMIN 3.9 g/dL (3.5-5.0); ALKALINE PHOSPHATASE 56 U/L (38-126); ANION GAP 9 (5-19); ASPARTATE AMINO TRANSFERASE 25 U/L (14-36); BILIRUBIN,DIRECT 0.3 mg/dL (0.0-0.4); BILIRUBIN,TOTAL 0.3 mg/dL (0.2-1.3); CARBON DIOXIDE 28 mmol/L (22-30); SODIUM 140.2 mmol/L (137-145); TOTAL PROTEIN 6.4 g/dL (6.3-8.2)
--- NOTE | 2017-03-08 20:44 | DISCHARGE SUMMARY E ---
Discharge Summary NAME: LIZ SHUKLA : 1990 AGE: 26Y ADMITTED: 03/07/2017 DISCHARGED: 03/08/2017 FINAL DIAGNOSIS: Abdominal pain. HOSPITAL COURSE: The patient was admitted, placed on IV fluids, and underwent abdominal pelvic CT scan as well as a HIDA scan. Both of these studies were normal with the exception of small amount of pelvic free fluid. Her repeat liver function studies were normal as well as her lipase. Her urinalysis was normal. She had improved abdominal pain and was feeling better at the time of discharge. I suspect that her pain is just due to recovery after surgery versus gastritis. The patient was noted with some stomach abnormalities on EGD by Dr. Syed recently. The patient is now being discharged home in good condition to see Dr. ySed within the next couple of weeks. She may resume her home medication. Additional medication is Nexium 20 mg 1 p.o. daily. I have changed her home omeprazole to Nexium, but I do not think she was taking her omeprazole at home. DICTATING PHYSICIAN: LAUREL IRENE M.D. [id number] PHY#: [id number] ID: [id number] JOB#: [id number] ACCT: [id number] cc:LAUREL IRENE M.D., IKECHUKWU M.D. >
== END 2017-03-08 14:30 | disposition home or self-care (01) | DRG 392 ==
LOC: 2N 10:56
PROVIDERS: ADMIT Surgery; ATTEND Surgery
DX: R10.13 Epigastric pain (principal); B37.0 Candidal stomatitis; F41.9 Anxiety disorder, unspecified; D64.9 Anemia, unspecified; K21.9 Gastro-esophageal reflux disease without esophagitis; F17.210 Nicotine dependence, cigarettes, uncomplicated; Z79.899 Other long term (current) drug therapy; Z90.49 Acquired absence of other specified parts of digestive tract; Z83.3 Family history of diabetes mellitus
CPT/HCPCS: 36415; 71020; 74177; 78226; 80053; 81001; 83690; 84703; 85027; 87086; A9537; J1170; Q9969; S0028

== ENCOUNTER 2018-06-04 11:19 | Emergency (ER) | payer MEDICAID, OTHER ==
[2018-06-04 14:01] LABS: APPEARANCE,URINE SLIGHTLY-CLOUDY; BILIRUBIN,URINE NEGATIVE (NEGATIVE); COLOR,URINE YELLOW; GLUCOSE, URINE NEGATIVE (NEGATIVE); KETONES,URINE NEGATIVE (NEGATIVE); LEUKOCYTE ESTERASE,URINE SMALL (NEGATIVE); NITRITE,URINE NEGATIVE (NEGATIVE); PROTEIN,URINE NEGATIVE (NEGATIVE); URINE SPECIFIC GRAVITY 1.006; UROBILINOGEN,URINE NEGATIVE mg/dL (<2.0)
[2018-06-04 14:06] VITALS: BP 133/81
[2018-06-04] MEDS ORDERED: ONDANSETRON 4 MG TAB.RAPDIS PO ONE (14:11)
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
== END 2018-06-04 14:16 | disposition home or self-care (01) ==
LOC: ER 11:19
DX: R11.2 Nausea with vomiting, unspecified (principal); S09.90XA Unspecified injury of head, initial encounter; R51 Headache; W22.8XXA Striking against or struck by other objects, initial encounter; H53.8 Other visual disturbances; M79.1 Myalgia; F17.200 Nicotine dependence, unspecified, uncomplicated
CPT/HCPCS: 81001; 81025; 99284

== ENCOUNTER 2018-07-23 10:21 | Emergency (ER) | payer MEDICAID ==
[2018-07-23] MEDS ORDERED: NORMAL SALINE 1000 ML 1,000 ML IV ONE ×2 (11:12→13:29)
[2018-07-23] MEDS ORDERED: DIPHENHYDRAMINE HCL 50 MG/ML VIAL IV ONE (11:12)
[2018-07-23] MEDS ORDERED: METOCLOPRAMIDE HCL INJ/PF 10 MG/2 ML SDV IV ONE (11:12)
--- NOTE | 2018-07-23 11:12 | ER Document Report ---
ED Medical Screen (RME) - General Chief Complaint: Headache Stated Complaint: VOMITING,HEADACHE Time Seen by Provider: 07/23/18 10:27 Mode of Arrival: Ambulatory Information source: Patient Notes: 27-year-old female with history of kidney stones presents with bilateral flank pain, left greater than right. Patient states she has had flank pain for 1 month. She states today while at work she began vomiting and developed a headache. I have greeted and performed a rapid initial assessment of this patient. A comprehensive ED assessment and evaluation of the patient, analysis of test results and completion of medical decision making process we will be contacted by additional ED providers. PHYSICAL EXAMINATION: Vital signs reviewed GENERAL: Well-appearing, well-nourished and in no acute distress. LUNGS: No respiratory distress Musculoskeletal: Normal range of motion. Left CVA tenderness NEUROLOGICAL: Normal speech, normal gait. PSYCH: Normal mood, normal affect. SKIN: Warm, Dry, normal turgor, no rashes or lesions noted. TRAVEL OUTSIDE OF THE [place] IN LAST 30 DAYS: No - HPI Onset: Other Onset/Duration: Gradual, Persistent Quality of pain: Pressure Severity: Mild Associated Symptoms: Diarrhea, Headache, Nausea, Vomiting Exacerbated by: Denies Relieved by: Denies Similar symptoms previously: Yes Recently seen / treated by doctor: No - Related Data Smoking: Non-smoker Frequency of alcohol use: None Drug Abuse: None Allergies/Adverse Reactions: No Known Allergies Allergy (Verified 07/23/18 11:06) Past Medical History - Social History Chew tobacco use (# tins/day): No Frequency of alcohol use: Occasional Drug Abuse: None - Past Medical History Cardiac Medical History: Denies: Hx Coronary Artery Disease, Hx Heart Attack, Hx Hypertension Pulmonary Medical History: Denies: Hx Asthma, Hx Bronchitis, Hx COPD, Hx Pneumonia Neurological Medical History: Reports: Hx Migraine. Denies: Hx Cerebrovascular Accident, Hx Seizures Renal/ Medical History: Reports: Hx Kidney Stones. Denies: Hx Peritoneal Dialysis GI Medical History: Reports: Hx Gastroesophageal Reflux Disease Musculoskeltal Medical History: Denies Hx Arthritis, Reports Hx Musculoskeletal Deformity - Chronic neck and back pain Past Surgical History: Reports: Hx Cholecystectomy, Hx Kidney (Renal Surgery) - kidney stone removed with stent placed, Hx Oral Surgery - [place] teeth extraction. Two left molar and one right molar extraction. - Immunizations Immunizations up to date: Yes Hx Diphtheria, Pertussis, Tetanus Vaccination: No Physical Exam - Vital signs Vitals: Temp Pulse Resp BP Pulse Ox 97.7 F 69 16 123/65 98 07/23/18 10:41 07/23/18 10:41 07/23/18 10:41 07/23/18 10:41 07/23/18 10:41 Course - Vital Signs Vital signs: Temp Pulse Resp BP Pulse Ox 97.7 F 69 16 123/65 98 07/23/18 10:41 07/23/18 10:41 07/23/18 10:41 07/23/18 10:41 07/23/18 10:41 Doctor's Discharge - Discharge Referrals: HUSEYIN IRENE MD [Primary Care Provider] - Follow up as needed
[2018-07-23] MEDS ORDERED: DIPHENHYDRAMINE HCL 50 MG CAPSULE PO ONE (11:38)
[2018-07-23 11:59] LABS: ABSOLUTE LYMPHOCYTES (AUTO) 2.5 10^3/uL (0.5-4.7); ABSOLUTE MONOCYTES (AUTO) 0.5 10^3/uL (0.1-1.4); ABSOLUTE NEUT (AUTO) 5.3 10^3/uL (1.7-8.2); BASOPHILS % (AUTO) 0.5 % (0-2); EOSINOPHILS % (AUTO) 0.3 % (0-6); HEMATOCRIT 39.1 % (36.0-47.0); HEMOGLOBIN 13.1 g/dL (12.0-15.5); MEAN CORPUSCULAR HEMOGLOBIN 28.9 pg (27.0-33.4); MEAN CORPUSCULAR HGB CONC 33.5 g/dL (32.0-36.0); MEAN CORPUSCULAR VOLUME 86 fl (80-97); MONOCYTES % (AUTO) 5.9 % (3-13); PLATELET COUNT 385 10^3/uL (150-450); RED BLOOD COUNT 4.52 10^6/uL (3.72-5.28); RED CELL DISTRIBUTION WIDTH 14.8 % (11.5-14.0); SEGMENTED NEUTROPHILS % (AUTO) 63.3 % (42-78); TOTAL CELLS COUNTED % (AUTO) 100 %; WHITE BLOOD COUNT 8.4 10^3/uL (4.0-10.5)
[2018-07-23 12:14] LABS: ANION GAP 11 (5-19); BLOOD UREA NITROGEN 13 mg/dL (7-20); CALCIUM 9.5 mg/dL (8.4-10.2); CARBON DIOXIDE 23 mmol/L (22-30); CHLORIDE 104 mmol/L (98-107); GLUCOSE 92 mg/dL (75-110); POTASSIUM 4.7 mmol/L (3.6-5.0); SODIUM 138.3 mmol/L (137-145)
[2018-07-23 12:18] LABS: APPEARANCE,URINE SLIGHTLY-CLOUDY; BILIRUBIN,URINE NEGATIVE (NEGATIVE); COLOR,URINE YELLOW; GLUCOSE, URINE NEGATIVE (NEGATIVE); KETONES,URINE NEGATIVE (NEGATIVE); LEUKOCYTE ESTERASE,URINE NEGATIVE (NEGATIVE); NITRITE,URINE NEGATIVE (NEGATIVE); PROTEIN,URINE NEGATIVE (NEGATIVE); URINE SPECIFIC GRAVITY 1.008; UROBILINOGEN,URINE NEGATIVE mg/dL (<2.0)
[2018-07-23] MEDS ORDERED: PROCHLORPERAZINE EDISYLATE INJ 10 MG/2 ML VIAL IV ONE (13:29)
[2018-07-23] MEDS ORDERED: KETOROLAC TROMETHAMINE INJ/PF 30 MG/1 ML SDV IV ONE (13:29)
--- NOTE | 2018-07-23 13:36 | ER Document Report ---
ED General - General Chief Complaint: Headache Stated Complaint: VOMITING,HEADACHE Time Seen by Provider: 07/23/18 10:27 Mode of Arrival: Ambulatory Notes: Patient is a 27-year-old female who presents with bilateral flank pain over the last month. Patient reports pain is worse on the left side. Left flank pain radiates around to the left lower quadrant. Patient denies any fevers but reports vomiting. Patient states she has a history of having an obstructive kidney stone. Patient states that she woke up this morning with a headache on the left side of her head. Patient reports history of migraines. TRAVEL OUTSIDE OF THE [place] IN LAST 30 DAYS: No - Related Data Allergies/Adverse Reactions: No Known Allergies Allergy (Verified 07/23/18 11:06) Past Medical History - General Information source: Patient - Social History Smoking Status: Current Every Day Smoker Chew tobacco use (# tins/day): No Frequency of alcohol use: Occasional Drug Abuse: None Family History: DM, Hyperlipidemia Patient has suicidal ideation: No Patient has homicidal ideation: No - Past Medical History Cardiac Medical History: Denies: Hx Coronary Artery Disease, Hx Heart Attack, Hx Hypertension Pulmonary Medical History: Denies: Hx Asthma, Hx Bronchitis, Hx COPD, Hx Pneumonia Neurological Medical History: Reports: Hx Migraine. Denies: Hx Cerebrovascular Accident, Hx Seizures Renal/ Medical History: Reports: Hx Kidney Stones. Denies: Hx Peritoneal Dialysis GI Medical History: Reports: Hx Gastroesophageal Reflux Disease Musculoskeletal Medical History: Denies Hx Arthritis, Reports Hx Musculoskeletal Deformity - Chronic neck and back pain Past Surgical History: Reports: Hx Cholecystectomy, Hx Kidney (Renal Surgery) - kidney stone removed with stent placed, Hx Oral Surgery - [place] teeth extraction. Two left molar and one right molar extraction. - Immunizations Immunizations up to date: Yes Hx Diphtheria, Pertussis, Tetanus Vaccination: No Review of Systems - Review of Systems Genitourinary: Flank pain Neurological/Psychological: Headaches -: Yes All other systems reviewed and negative Physical Exam - Vital signs Vitals: Temp Pulse Resp BP Pulse Ox 97.7 F 69 16 123/65 98 07/23/18 10:41 07/23/18 10:41 07/23/18 10:41 07/23/18 10:41 07/23/18 10:41 - Notes Notes: PHYSICAL EXAMINATION: GENERAL: Well-appearing, well-nourished and in no acute distress. HEAD: Atraumatic, normocephalic. EYES: Pupils equal round and reactive to light, extraocular movements intact, conjunctiva are normal. ENT: Nares patent, oropharynx clear without exudates. Moist mucous membranes. NECK: Normal range of motion, supple without lymphadenopathy LUNGS: Breath sounds clear to auscultation bilaterally and equal. No wheezes rales or rhonchi. HEART: Regular rate and rhythm without murmurs ABDOMEN: Soft, nontender, nondistended abdomen. No guarding, no rebound. No masses appreciated. Female : Bilateral CVA tenderness, increased to the left. Musculoskeletal: Normal range of motion, no pitting or edema. No cyanosis. NEUROLOGICAL: Cranial nerves grossly intact. Normal speech, normal gait. Normal sensory, motor exams PSYCH: Normal mood, normal affect. SKIN: Warm, Dry, normal turgor, no rashes or lesions noted. Course - Re-evaluation Re-evalutation: Patient was initially seen by provider in triage. CBC, comprehensive metabolic panel and urinalysis are all unremarkable. Patient states that her headache is still present and she still has left flank pain. Given patient's history of obstructive stones and physical examination, patient will be sent for a CT scan. Additional medications will be given for headache and patient will receive additional 1 L normal saline bolus. 07/23/18 14:13 CT scans negative for any acute findings. Headache resolved on reassessment. Patient will be discharged home in stable condition. - Vital Signs Vital signs: Temp Pulse Resp BP Pulse Ox 97.7 F 69 16 123/65 98 07/23/18 10:41 07/23/18 10:41 07/23/18 10:41 07/23/18 10:41 07/23/18 10:41 - Laboratory Result Diagrams: 07/23/18 11:36 07/23/18 11:36 Laboratory results interpreted by me: 07/23/18 11:36 RDW 14.8 H Discharge - Discharge Clinical Impression: Flank pain Headache Qualifiers: Headache type: unspecified Headache chronicity pattern: unspecified pattern Intractability: not intractable Qualified Code(s): R51 - Headache Vomiting Qualifiers: Vomiting type: unspecified Vomiting Intractability: non-intractable Nausea presence: with nausea Qualified Code(s): R11.2 - Nausea with vomiting, unspecified Condition: Stable Disposition: HOME, SELF-CARE Additional Instructions: Headache The physician does not feel that the headache you are experiencing has a serious underlying cause. Most headaches are due to emotional stress, with resultant muscle tension (tension headache). Occasionally, headaches are secondary to changes in the blood vessels of the scalp (vascular headache and migraine headache). Sometimes, a headache is the first symptom of another developing illness, such as a viral infection. You have no evidence of stroke, bleeding, meningitis, or other serious cause of your headache. The treatment of headaches varies with the severity and cause of the pain. Not all headaches need pain shots. In fact, there is evidence that using narcotics for headaches may make them worse in the long run. The physician will determine the therapy that's in your best interest. If you develop a fever, if the headache is different from any you've previously experienced, or if the headache progressively worsens, then call your physician at once or go to the emergency room. Vomiting Vomiting can be part of many illnesses. Most cases of vomiting are due to gastroenteritis, usually a viral infection in the intestinal tract. There is no specific treatment. The disease will end by itself. For now, the main danger to your child is dehydration. During the first few hours of the illness, give clear liquids, such as Pedialyte. Try to give small quantities frequently, such as a teaspoon of liquid every minute or about an ounce of fluids every five to ten minutes. Medications may be prescribed by the physician for special cases. After an hour or two of fluids without vomiting, add rice cereal, toast, applesauce, or bananas and other more solid foods to the clear liquids. Call the physician or go to the hospital if vomiting increases or blood appears in the bowel movement or vomitus; if your child fails to improve, or if signs of dehydration occur (no wet diapers for eight to twelve hours, tongue and mouth become dry, not acting as alert as usual). Flank Pain We weren't able to prove an exact cause for your flank pain. Pain in the flank can be caused by a muscle strain or spasm. Sometimes a kidney stone causes pain, but can't be found on our tests. Infection in the kidney should be evident on a urine test. Early shingles can occasionally cause flank pain, without the rash that proves the diagnosis. On rare occasions, disease of the pancreas, aorta, spleen, or colon can create pain in the flank. At this time, there's no evidence of a dangerous condition, and it seems safe for you to be at home. If the pain goes away and does not come back, no further testing will be needed. If pain persists, or becomes more severe, we may need to repeat some tests or order additional new testing. Blood in the urine, urgency to urinate frequently, and pain that radiates to the groin can indicate a kidney stone. Fever may mean that the pain is due to infection, either of the kidney or the colon (diverticulitis). If your pain is early shingles, you should develop an eruption of blisters in the painful area within a few days. Call the doctor or return if you have pain that is spreading or becoming more severe, pain that does not resolve with time, fever, or any other new symptoms. Please use the nausea medication as needed for nausea and/or vomiting. Your urine was negative today for any infection however we will be sending this for a urine culture. The CT scan was negative for any kidney stones. Take Tylenol and/or ibuprofen as needed for headache. Drink plenty of fluids. Prescriptions: Ondansetron [Zofran Odt 4 mg Tablet] 1 - 2 tab PO Q4H PRN #15 tab.rapdis PRN Reason: For Nausea/Vomiting
--- NOTE | 2018-07-23 14:10 | RADIOLOGY REPORT (SQ) ---
EXAM DESCRIPTION: CT LTD RENAL STONE PROTOCOL ON COMPLETED DATE/TIME: 07/23/2018 1:57 pm REASON FOR STUDY: left flank pain, history kidney stones, urine HCG negative COMPARISON: CT abdomen pelvis 03/02/2017, 03/07/2017 TECHNIQUE: CT scan of the abdomen and pelvis performed without intravenous or oral contrast. Images reviewed with lung, soft tissue, and bone windows. Reconstructed coronal and sagittal MPR images revi ewed. All images stored on PACS. All CT scanners at this facility use dose modulation, iterative reconstruction, and/or weight based d osing when appropriate to reduce radiation dose to as low as reasonably achievable (ALARA). [facility]: Dose Right [facility]: CareDose [facility]: Dose Right [facility]: Teradose 4D [facility]: InterEx RADIATION DOSE: CT Rad equipment meets quality standard of care and radiation dose reduction techniq ues were employed. CTDIvol: 13.0 mGy. DLP: 709 mGy-cm.mGy. LIMITATIONS: None. FINDINGS: LOWER CHEST: No significant findings. No nodules or infiltrates. NON-CONTRASTED LIVER, SPLEEN, ADRENALS: Evaluation limited by lack of IV contrast. No identified sign ificant masses. PANCREAS: No masses. No peripancreatic inflammatory changes. GALLBLADDER: Surgically absent. RIGHT KIDNEY AND URETER: No suspicious masses. Assessment limited by lack of IV contrast. No signif icant calcifications. No hydronephrosis or hydroureter. LEFT KIDNEY AND URETER: No suspicious masses. Assessment limited by lack of IV contrast. No signifi cant calcifications. No hydronephrosis or hydroureter. AORTA AND RETROPERITONEUM: No aneurysm. No retroperitoneal masses or adenopathy. BOWEL AND PERITONEAL CAVITY: No obvious masses or inflammatory changes. No free fluid. APPENDIX: Normal. PELVIS, BLADDER, AND ABDOMINAL WALL:No abnormal masses. No free fluid. Bladder normal. BONES: No significant findings. OTHER: No other significant finding. IMPRESSION: Post cholecystectomy. Otherwise unremarkable CT abdomen pelvis without contrast. No CT findings to explain history of left flank pain. No urinary calculi. COMMENT: Quality ID # [id number]: Final reports with documentation of one or more dose reduction techniques (e.g., Automated exposure control, adjustment of the mA and/or kV according to patient size, use of iterative reconstruction technique) TECHNICAL DOCUMENTATION: JOB ID: [id number]- All Rights Reserved Reading location - IP/workstation name: [email or web address]
[2018-07-23] MEDS ORDERED: HYDROCODONE/ACETAMINOPHEN 5-325 MG (6 TAB/ER DISP) PO PRN (14:44)
[2018-07-23 15:15] VITALS: BP 115/55
== END 2018-07-23 15:23 | disposition home or self-care (01) ==
LOC: ER 10:21
DX: R51 Headache (principal); R10.9 Unspecified abdominal pain; R11.2 Nausea with vomiting, unspecified; F17.200 Nicotine dependence, unspecified, uncomplicated; Z87.442 Personal history of urinary calculi; Z90.49 Acquired absence of other specified parts of digestive tract
CPT/HCPCS: 99284; 96361; 96374; 96375; 36415; 87086; 85025; 81025; 80048; 81001; 76380; J3490; J1885; J2765; J0780

== ENCOUNTER 2018-08-15 13:12 | Emergency (ER) | payer MEDICAID ==
[2018-08-15] MEDS ORDERED: NORMAL SALINE 1000 ML 1,000 ML IV ONE (14:45)
[2018-08-15] MEDS ORDERED: PROCHLORPERAZINE EDISYLATE INJ 10 MG/2 ML VIAL IV ONE (14:45)
[2018-08-15] MEDS ORDERED: ONDANSETRON HCL INJ/PF 4 MG/2 ML SDV IV ONE (14:45)
--- NOTE | 2018-08-15 14:46 | ER Document Report ---
ED Medical Screen (RME) - General Chief Complaint: Headache Stated Complaint: HEADACHE, VOMITING Time Seen by Provider: 08/15/18 14:42 TRAVEL OUTSIDE OF THE [place] IN LAST 30 DAYS: No - HPI Notes: 08/15/18 14:45 Headache nausea vomiting ongoing for 5 days - Related Data Allergies/Adverse Reactions: No Known Allergies Allergy (Verified 08/15/18 14:29) Past Medical History - Social History Frequency of alcohol use: None Drug Abuse: None - Past Medical History Cardiac Medical History: Denies: Hx Coronary Artery Disease, Hx Heart Attack, Hx Hypertension Pulmonary Medical History: Denies: Hx Asthma, Hx Bronchitis, Hx COPD, Hx Pneumonia Neurological Medical History: Reports: Hx Migraine. Denies: Hx Cerebrovascular Accident, Hx Seizures Renal/ Medical History: Reports: Hx Kidney Stones. Denies: Hx Peritoneal Dialysis GI Medical History: Reports: Hx Gastroesophageal Reflux Disease Musculoskeltal Medical History: Denies Hx Arthritis, Reports Hx Musculoskeletal Deformity - Chronic neck and back pain Past Surgical History: Reports: Hx Cholecystectomy, Hx Kidney (Renal Surgery) - kidney stone removed with stent placed, Hx Oral Surgery - [place] teeth extraction. Two left molar and one right molar extraction. - Immunizations Immunizations up to date: Yes Hx Diphtheria, Pertussis, Tetanus Vaccination: No Review of Systems - Review of Systems Constitutional: Other - Headache nausea vomiting ongoing for 5 days Physical Exam - Vital signs Vitals: Temp Pulse Resp BP Pulse Ox 98.3 F 60 16 120/66 100 08/15/18 13:40 08/15/18 13:40 08/15/18 13:40 08/15/18 13:40 08/15/18 13:40 - HEENT Head: Normocephalic Eyes: Normal - Respiratory Respiratory status: No respiratory distress Chest status: Nontender Breath sounds: Normal Chest palpation: Normal Course - Vital Signs Vital signs: Temp Pulse Resp BP Pulse Ox 98.3 F 60 16 120/66 100 08/15/18 13:40 08/15/18 13:40 08/15/18 13:40 08/15/18 13:40 08/15/18 13:40 Doctor's Discharge - Discharge Referrals: HUSEYIN IRENE MD [Primary Care Provider] - Follow up as needed
[2018-08-15 15:36] LABS: ALANINE AMINOTRANSFERASE 12 U/L (9-52); ALBUMIN 4.9 g/dL (3.5-5.0); ALKALINE PHOSPHATASE 63 U/L (38-126); ANION GAP 14 (5-19); ASPARTATE AMINO TRANSFERASE 21 U/L (14-36); BILIRUBIN,DIRECT 0.1 mg/dL (0.0-0.4); BILIRUBIN,TOTAL 0.4 mg/dL (0.2-1.3); BLOOD UREA NITROGEN 8 mg/dL (7-20); CARBON DIOXIDE 27 mmol/L (22-30); CHLORIDE 103 mmol/L (98-107); GLUCOSE 80 mg/dL (75-110); LIPASE 93.7 U/L (23-300); POTASSIUM 4.2 mmol/L (3.6-5.0); SODIUM 143.8 mmol/L (137-145)
[2018-08-15] MEDS ORDERED: DIPHENHYDRAMINE HCL 50 MG CAPSULE PO ONE (16:11)
--- NOTE | 2018-08-15 16:11 | ER Document Report ---
ED Headache - General Chief Complaint: Headache Stated Complaint: HEADACHE, VOMITING Time Seen by Provider: 08/15/18 14:42 Mode of Arrival: Ambulatory Information source: Patient Notes: 27-year-old female with a history of migraines but she has not had one for 1 year as a gradual onset of a frontal headache for 5 days. Today she vomited but she has had diarrhea for the past 3 days. No abdominal pain. No fever or chills. She is feeling very anxious after she was given the Compazine already the IV is almost infused. She states her headache is down to 2/5. Chemistry is normal and test is negative. She worked today. TRAVEL OUTSIDE OF THE [place] IN LAST 30 DAYS: No - Related Data Allergies/Adverse Reactions: No Known Allergies Allergy (Verified 08/15/18 14:29) Past Medical History - General Information source: Patient - 0 - Social History Smoking Status: Current Every Day Smoker Frequency of alcohol use: None Drug Abuse: None Family History: DM, Hyperlipidemia Patient has suicidal ideation: No Patient has homicidal ideation: No Neurological Medical History: Reports: Hx Migraine Renal/ Medical History: Reports: Hx Kidney Stones GI Medical History: Reports: Hx Gastroesophageal Reflux Disease Musculoskeletal Medical History: Reports Hx Musculoskeletal Deformity - Chronic neck and back pain Past Surgical History: Reports: Hx Cholecystectomy, Hx Kidney (Renal Surgery) - kidney stone removed with stent placed, Hx Oral Surgery - [place] teeth extraction. Two left molar and one right molar extraction. - Immunizations Immunizations up to date: Yes Hx Diphtheria, Pertussis, Tetanus Vaccination: No Review of Systems - Review of Systems Constitutional: No symptoms reported EENT: No symptoms reported Cardiovascular: No symptoms reported Respiratory: No symptoms reported Gastrointestinal: No symptoms reported Genitourinary: No symptoms reported Female Genitourinary: No symptoms reported Musculoskeletal: No symptoms reported Skin: See HPI Hematologic/Lymphatic: No symptoms reported Neurological/Psychological: No symptoms reported Physical Exam - Vital signs Vitals: Temp Pulse Resp BP Pulse Ox 98.3 F 60 16 120/66 100 08/15/18 13:40 08/15/18 13:40 08/15/18 13:40 08/15/18 13:40 08/15/18 13:40 Interpretation: Normal - General General appearance: Appears well, Alert - HEENT Head: Normocephalic, Atraumatic Eyes: Normal Conjunctiva: Normal Extraocular movements intact: Yes Pupils: PERRL Neck: Supple. No: Lymphadenopathy - Respiratory Respiratory status: No respiratory distress Chest status: Nontender Breath sounds: Normal Chest palpation: Normal - Cardiovascular Rhythm: Regular Heart sounds: Normal auscultation Murmur: No - Abdominal Inspection: Normal Distension: No distension Bowel sounds: Normal Tenderness: Nontender Organomegaly: No organomegaly - Back Back: Normal, Nontender - Extremities General upper extremity: Normal inspection, Nontender, Normal color, Normal ROM , Normal temperature General lower extremity: Normal inspection, Nontender, Normal color, Normal ROM , Normal temperature, Normal weight bearing. No: Miguel's sign - Neurological Neuro grossly intact: Yes Cognition: Normal Orientation: AAOx4 Brandon Coma Scale Eye Opening: Spontaneous [place] Coma Scale Verbal: Oriented [place] Coma Scale Motor: Obeys Commands Brandon Coma Scale Total: 15 Speech: Normal Motor strength normal: LUE, RUE, LLE, RLE Sensory: Normal - Psychological Associated symptoms: Normal affect, Normal mood - Skin Skin Temperature: Warm Skin Moisture: Dry Skin Color: Normal Course - Vital Signs Vital signs: Temp Pulse Resp BP Pulse Ox 98.3 F 60 16 120/66 100 08/15/18 13:40 08/15/18 13:40 08/15/18 13:40 08/15/18 13:40 08/15/18 13:40 - Laboratory Result Diagrams: 08/15/18 14:25 Discharge - Discharge Clinical Impression: Frontal headache, Vomiting and diarrhea Condition: Good Disposition: HOME, SELF-CARE Instructions: Antinausea Medication ([facility]), Intravenous Compazine for Headaches ([facility]), Use of Diphenhydramine, Headache ([facility]), Toradol Injection ([facility]), Acetaminophen, Ibuprofen (General) ([facility]) Additional Instructions: Drink plenty of fluids Return to the emergency room for worsening of symptoms Follow-up with neurologist if you get an increase in frequency of this headache again. [id number] Tylenol and Motrin for pain Referrals: ELIZABTEH DIMAS MD [NO LOCAL MD] - Follow up as needed
[2018-08-15] MEDS ORDERED: KETOROLAC TROMETHAMINE INJ/PF 30 MG/1 ML SDV IV ONE (16:17)
[2018-08-15 16:39] VITALS: BP 120/68
== END 2018-08-15 16:39 | disposition home or self-care (01) ==
LOC: ER 13:12
DX: R51 Headache (principal); R11.10 Vomiting, unspecified; R19.7 Diarrhea, unspecified; R40.2412 Glasgow coma scale score 13-15, at arrival to emergency department; K21.9 Gastro-esophageal reflux disease without esophagitis; Z90.49 Acquired absence of other specified parts of digestive tract; F17.200 Nicotine dependence, unspecified, uncomplicated; Z87.442 Personal history of urinary calculi
CPT/HCPCS: 99284; 96361; 96374; 96375; 36415; 83690; 83735; 84703; 80053; J3490; J1885; J0780; J2405; J7030

== ENCOUNTER 2019-06-06 18:18 | Emergency (ER) | payer MEDICAID ==
[2019-06-06 18:25] VITALS: BP 126/66
--- NOTE | 2019-06-06 19:10 | ER Document Report ---
HPI - HPI Time Seen by Provider: 06/06/19 18:45 Pain Level: 2 Notes: Patient is a 28-year-old male presents emergency department chief complaint of acute on chronic neck pain. Patient reports neck pain has been present for approximately 3 years. Patient denies any new injury. She states she is being seen by orthopedic, states she is pending an MRI. Patient denies any new injury but states she is out of her medications. Patient reports several years ago she was in pain management. Patient is also complaining of possible thrush to her mouth, states that she had thrush 2 years ago and it feels the same. She reports the symptoms have been going on for 2 days. - CONSTITUTIONAL Constitutional: DENIES: Fever, Chills - EENT EENT: REPORTS: Sore Throat. DENIES: Ear Pain, Eye problems - NEURO Neurology: DENIES: Headache, Weakness, Vision blurred, Dizzinesss / Vertigo - CARDIOVASCULAR Cardiovascular: DENIES: Chest pain - RESPIRATORY Respiratory: DENIES: Trouble Breathing, Coughing - GASTROINTESTINAL Gastrointestinal: DENIES: Abdominal Pain, Black / Bloody Stools - URINARY Urinary: DENIES: Dysuria, Urgency, Frequency - REPRODUCTIVE Reproductive: DENIES: : - MUSCULOSKELETAL Musculoskeletal: DENIES: Extremity pain Past Medical History - General Information source: Patient - Social History Smoking Status: Never Smoker Chew tobacco use (# tins/day): No Frequency of alcohol use: Occasional Drug Abuse: None Family History: DM, Hyperlipidemia Patient has suicidal ideation: No Patient has homicidal ideation: No - Past Medical History Cardiac Medical History: Denies: Hx Coronary Artery Disease, Hx Heart Attack, Hx Hypertension Pulmonary Medical History: Denies: Hx Asthma, Hx Bronchitis, Hx COPD, Hx Pneumonia Neurological Medical History: Reports: Hx Migraine. Denies: Hx Cerebrovascular Accident, Hx Seizures Renal/ Medical History: Reports: Hx Kidney Stones. Denies: Hx Peritoneal Dialysis GI Medical History: Reports: Hx Gastroesophageal Reflux Disease Musculoskeletal Medical History: Denies Hx Arthritis, Reports Hx Musculoskeletal Deformity - Chronic neck and back pain Past Surgical History: Reports: Hx Cholecystectomy, Hx Kidney (Renal Surgery) - kidney stone removed with stent placed, Hx Oral Surgery - [place] teeth extraction. Two left molar and one right molar extraction. - Immunizations Immunizations up to date: Yes Hx Diphtheria, Pertussis, Tetanus Vaccination: No Vertical Provider Document - CONSTITUTIONAL Notes: PHYSICAL EXAMINATION: GENERAL: Well-appearing, well-nourished and in no acute distress. HEAD: Atraumatic, normocephalic. EYES: Pupils equal round extraocular movements intact, conjunctiva are normal. ENT: Nares patent, white patches noted on tongue. NECK: Normal range of motion, tenderness to palpation to his cervical spine, no step-off or deformity. No erythema or swelling. LUNGS: No respiratory distress Musculoskeletal: Normal range of motion NEUROLOGICAL: Normal speech, normal gait. PSYCH: Normal mood, normal affect. SKIN: Warm, Dry, normal turgor, no rashes or lesions noted. - INFECTION CONTROL TRAVEL OUTSIDE OF THE [place] IN LAST 30 DAYS: No Course - Re-evaluation Re-evalutation: Patient presenting with chronic neck pain, requesting medications. Patient reports she has been taking baclofen. She states she has 2 tablets left. She states she sees Dr. Powers at [facility] for surgery. I explained to patient that we do not treat chronic pain here in the emergency department but I would be willing to give her a prescription for Toradol. She is also requesting a prescription for muscle relaxers as her baclofen has almost run out. I told her I will prescribe her some Robaxin. Patient is agreeable to this plan. I did encourage patient to follow-up with either her orthopedist or consider starting pain management if she continues to need medication management for her pain. Patient verbalizes understands plan. The patient's emergency department workup and current diagnosis were explained to the patient and or family. Follow-up instructions were provided. Medications if prescribed were discussed. Instructions for when to return to the emergency department including specific worrisome symptoms were discussed with the patient and/or family. - Vital Signs Vital signs: Temp Pulse Resp BP Pulse Ox 98.0 F 94 14 126/66 H 98 06/06/19 18:23 06/06/19 18:23 06/06/19 18:23 06/06/19 18:23 06/06/19 18:23 Discharge - Discharge Clinical Impression: Neck pain, chronic, Thrush Condition: Stable Disposition: HOME, SELF-CARE Instructions: Oral Thrush ([facility]) Additional Instructions: I have written you a prescription for Toradol and Robaxin for your chronic neck pain and muscle spasms. He will need to see your orthopedic doctor or establish care with a neckties painter for further management of your chronic pain. I have also written you a prescription for nystatin for the oral thrush. Please apply this to your mouth 4 times daily and then spit out. Prescriptions: Ketorolac Tromethamine [Toradol 10 mg Tablet] 10 mg PO Q6HP PRN #20 tablet PRN Reason: Methocarbamol [Robaxin 500 mg Tablet] 500 mg PO Q6H #20 tablet Nystatin [Mycostatin 839563 Unit/1 ml Susp 60 ml Btl] 1 ml PO QID 7 Days #60 ml Referrals: ARTEMIO PATEL, [facility] [Primary Care Provider] - Follow up as needed
== END 2019-06-06 19:15 | disposition home or self-care (01) ==
LOC: ER 18:18
DX: G89.29 Other chronic pain (principal); M54.2 Cervicalgia; B37.0 Candidal stomatitis
CPT/HCPCS: 99283

== ENCOUNTER 2019-06-27 22:49 | Emergency (ER) | payer MEDICAID ==
--- NOTE | 2019-06-28 03:39 | ER Document Report ---
ED General - General Chief Complaint: Pain All Over Stated Complaint: LIGHT HEADED Time Seen by Provider: 06/28/19 03:25 Primary Care Provider: ARTEMIO PATEL FNP-C [Primary Care Provider] - Follow up as needed Notes: Patient is a 28-year-old female that comes emergency department with chief complaint of sensation of fullness and discomfort on the right side of her neck. She has also some discomfort with swallowing in the same place but denies pain in her throat. She states she has been noticing this over the past 2 or so weeks but has been worsening and now it is much more noticeable. She just completed a course of prednisone, she states she was given this because she had blood work and she was told that there was "inflammation in the blood". She is uncertain if this was elevation of the ESR. She is not diagnosed with any autoimmune diseases. She denies fever/chills, nausea/vomiting, congestion, cough, chest pain, headache. She states she has felt generally tired and achy recently as well. She is treated for chronic neck pain with possible herniated disc and upcoming MRI, she takes baclofen for this. TRAVEL OUTSIDE OF THE [place] IN LAST 30 DAYS: No - Related Data Allergies/Adverse Reactions: No Known Allergies Allergy (Verified 06/06/19 18:21) Past Medical History - General Information source: Patient - Social History Smoking Status: Current Every Day Smoker Smoking Education Provided: Yes - <3 min Frequency of alcohol use: Occasional Drug Abuse: None Lives with: Family Family History: DM, Hyperlipidemia Patient has suicidal ideation: No Patient has homicidal ideation: No - Past Medical History Cardiac Medical History: Denies: Hx Coronary Artery Disease, Hx Heart Attack, Hx Hypertension Pulmonary Medical History: Denies: Hx Asthma, Hx Bronchitis, Hx COPD, Hx Pneumonia Neurological Medical History: Reports: Hx Migraine. Denies: Hx Cerebrovascular Accident, Hx Seizures Renal/ Medical History: Reports: Hx Kidney Stones. Denies: Hx Peritoneal Dialysis GI Medical History: Reports: Hx Gastroesophageal Reflux Disease Musculoskeletal Medical History: Denies Hx Arthritis, Reports Hx Musculoskeletal Deformity - Chronic neck and back pain Past Surgical History: Reports: Hx Cholecystectomy, Hx Kidney (Renal Surgery) - kidney stone removed with stent placed, Hx Oral Surgery - [place] teeth extraction. Two left molar and one right molar extraction. - Immunizations Immunizations up to date: Yes Hx Diphtheria, Pertussis, Tetanus Vaccination: No Review of Systems - Review of Systems Constitutional: See HPI EENT: See HPI Cardiovascular: No symptoms reported Respiratory: No symptoms reported Gastrointestinal: No symptoms reported Genitourinary: No symptoms reported Female Genitourinary: No symptoms reported Musculoskeletal: See HPI Skin: No symptoms reported Hematologic/Lymphatic: No symptoms reported Neurological/Psychological: No symptoms reported Physical Exam - Vital signs Vitals: Temp Pulse Resp BP Pulse Ox 97.7 F 76 18 127/80 H 99 06/27/19 23:24 06/27/19 23:24 06/27/19 23:24 06/27/19 23:24 06/27/19 23:24 - Notes Notes: GENERAL: Alert. No acute distress. HEAD: Normocephalic, atraumatic. EYES: Pupils equal, round, and reactive to light. Extraocular movements intact. ENT: Oral mucosa moist, tongue midline. Oropharynx unremarkable. Airway patent. Nares patent, no nasal septal hematoma, TM's intact. NECK: Full range of motion. Supple. Trachea midline. Patient complains of palpation over the general right side of the neck, there appear to be small lymph nodes along both anterior cervical areas which are slightly enlarged but not severely tender. Unremarkable otherwise. LUNGS: Clear to auscultation bilaterally, no wheezes, rales, or rhonchi. No respiratory distress. HEART: Regular rate and rhythm. No murmur ABDOMEN: Soft, non-tender. Non-distended. Bowel sounds present in all 4 quadrants. GENITOURINARY: Deferred EXTREMITIES: Moves all 4 extremities spontaneously. No edema, normal radial and dorsalis pedis pulses bilaterally. No cyanosis. BACK: no cervical, thoracic, lumbar midline tenderness. No saddle anesthesia, normal distal neurovascular exam. Moves all extremities in full range of motion. NEUROLOGICAL: Alert and oriented x3. Normal speech. Cranial nerves II through XII grossly intact. PSYCH: Talks rapidly and slightly anxiously SKIN: Warm, dry, normal turgor. No rashes or lesions noted. Course - Re-evaluation Re-evalutation: Patient is well-appearing. Unremarkable vitals. Patient is very concerned about an area that she points to just underneath her right jaw and along the right side of her neck that she feels is swollen and getting worse. She is very small palpable lymph nodes which are nontender, no submandibular swelling, no obvious parotid swelling. Patient states she does not have a sore throat but this area is getting worse. Finally I did agree to perform CT of the soft tissue of the neck because of patient's concerns. CBC, chemistry, test unremarkable. On reevaluation patient appears unremarkable still. CT is only reading vascular studies, I did speak with the radiology group and the radiologist did add an addendum showing unremarkable soft tissues of the neck. I did discuss this with patient, provided her with a copy of the CD to take to her provider. She was very relieved about this. She was reassured. There appears to be a psychological component here. Patient was also recently started on psychiatric medication, these can have side effects and this was dis cussed, she also has pending additional work-up with her primary care provider including probable autoimmune studies. Encouraged her to follow-up with this, reassured her in regards to her evaluation at night, discussed return precautions. Patient states understanding and agreement. Patient is not suicidal or homicidal, appears reassured, is not depressed. Stable time of discharge. - Vital Signs Vital signs: Temp Pulse Resp BP Pulse Ox 97.7 F 66 18 109/74 99 06/28/19 06:55 06/28/19 06:55 06/28/19 06:55 06/28/19 06:55 06/28/19 06:55 - Laboratory Result Diagrams: 06/28/19 03:49 06/28/19 03:49 Laboratory results interpreted by me: 06/28/19 03:49 Hgb 11.3 L Hct 34.1 L RDW 14.3 H Lymph % (Auto) 53.3 H Absolute Lymphs (auto) 5.3 H Seg Neutrophils % 39.3 L Discharge - Discharge Clinical Impression: Lightheadedness, Neck pain, Throat pain Condition: Stable Disposition: HOME, SELF-CARE Additional Instructions: Your blood work shows nonspecific viral shifts. You most likely did have a virus which has resolved. I suspect the symptoms in your neck are from lymph nodes but no concerning a normality is seen on the soft tissue imaging of your neck. Continue your muscle relaxer. Take Tylenol or ibuprofen for pain, only take the pain medication provided if needed for severe pain. Follow-up with primary care provider for additional evaluation management including possible autoimmune work-up. Is also possible that your new medication is causing your generalized symptoms. Return if you worsen including severe headache, developing pain in your neck/throat, swelling, fever, vomiting, difficulty breathing, or any other concerning symptoms. Referrals: ARTEMIO PATEL FNP-C [Primary Care Provider] - Follow up as needed
[2019-06-28 04:40] LABS: ABSOLUTE BASOPHILS # (AUTO) 0.1 10^3/uL (0.0-0.2); ABSOLUTE EOSINOPHILS # (AUTO) 0.1 10^3/uL (0.0-0.6); ABSOLUTE LYMPHOCYTES (AUTO) 5.3 10^3/uL (0.5-4.7); ABSOLUTE MONOCYTES (AUTO) 0.6 10^3/uL (0.1-1.4); ABSOLUTE NEUT (AUTO) 3.9 10^3/uL (1.7-8.2); BASOPHILS % (AUTO) 0.6 % (0-2); EOSINOPHILS % (AUTO) 1.2 % (0-6); HEMATOCRIT 34.1 % (36.0-47.0); HEMOGLOBIN 11.3 g/dL (12.0-15.5); LYMPHOCYTES % (AUTO) 53.3 % (13-45); MEAN CORPUSCULAR HEMOGLOBIN 28.8 pg (27.0-33.4); MEAN CORPUSCULAR HGB CONC 33.1 g/dL (32.0-36.0); MEAN CORPUSCULAR VOLUME 87 fl (80-97); MONOCYTES % (AUTO) 5.6 % (3-13); PLATELET COUNT 398 10^3/uL (150-450); RED BLOOD COUNT 3.91 10^6/uL (3.72-5.28); RED CELL DISTRIBUTION WIDTH 14.3 % (11.5-14.0); SEGMENTED NEUTROPHILS % (AUTO) 39.3 % (42-78); TOTAL CELLS COUNTED % (AUTO) 100 %
[2019-06-28 05:03] LABS: ALBUMIN 3.8 g/dL (3.5-5.0); ALKALINE PHOSPHATASE 54 U/L (38-126); ANION GAP 6 (5-19); ASPARTATE AMINO TRANSFERASE 15 U/L (14-36); BILIRUBIN,DIRECT 0.3 mg/dL (0.0-0.4); BILIRUBIN,TOTAL 0.3 mg/dL (0.2-1.3); BLOOD UREA NITROGEN 12 mg/dL (7-20); CALCIUM 8.9 mg/dL (8.4-10.2); CARBON DIOXIDE 27 mmol/L (22-30); CHLORIDE 107 mmol/L (98-107); GLUCOSE 85 mg/dL (75-110); POTASSIUM 3.9 mmol/L (3.6-5.0); TOTAL PROTEIN 6.7 g/dL (6.3-8.2)
--- NOTE | 2019-06-28 05:53 | RADIOLOGY REPORT (SQ) ---
CLINICAL HISTORY: right sided neck fullness/pain COMPARISON: None. TECHNIQUE: CT NECK WITH IV CONTRAST on 06/28/2019 3:35 AM CDT This exam was performed according to our departmental dose-optimization program, which includes automated exposure control, adjustment of the mA and/or kV according to patient size and/or use of iterative reconstruction technique. MIP reconstructions were generated. Stenoses are calculated by NASCET criteria. FINDINGS: Bilateral vertebral arteries are patent. The posterior cerebral arteries are patent. The anterior and middle cerebral arteries are unremarkable. IMPRESSION: Unremarkable extracranial vasculature. CAROTID STENOSIS REFERENCE USING NASCET CRITERIA: % ICA stenosis = (1 - narrowest ICA diameter/diameter of distal cervical ICA) x 100. Mild - <50% stenosis. Moderate - 50-69% stenosis. Severe - 70-94% stenosis. Near occlusion - 95-99% stenosis. Occluded - 100% stenosis.
[2019-06-28] MEDS ORDERED: HYDROCODONE/ACETAMINOPHEN 5-325 MG (6 TAB/ER DISP) PO PRN (06:47)
[2019-06-28 06:56] VITALS: BP 109/74
== END 2019-06-28 07:14 | disposition home or self-care (01) ==
LOC: ER 22:49
DX: R42 Dizziness and giddiness (principal); M79.10 Myalgia, unspecified site; M54.2 Cervicalgia; J02.9 Acute pharyngitis, unspecified; F17.200 Nicotine dependence, unspecified, uncomplicated; Z87.442 Personal history of urinary calculi; Z90.49 Acquired absence of other specified parts of digestive tract
CPT/HCPCS: 36415; 70491; 80053; 84703; 85025; 99284

== ENCOUNTER 2020-05-30 17:28 | Outpatient (CLI) | payer MEDICAID ==
[2020-05-30 18:08] LABS: APPEARANCE,URINE CLEAR; BILIRUBIN,URINE NEGATIVE (NEGATIVE); COLOR,URINE YELLOW; GLUCOSE, URINE NEGATIVE (NEGATIVE); KETONES,URINE NEGATIVE (NEGATIVE); LEUKOCYTE ESTERASE,URINE SMALL (NEGATIVE); NITRITE,URINE NEGATIVE (NEGATIVE); PROTEIN,URINE NEGATIVE (NEGATIVE); URINE SPECIFIC GRAVITY 1.015; UROBILINOGEN,URINE NEGATIVE mg/dL (<2.0)
[2020-05-30 18:30] LABS: URINE AMPHETAMINES SCREEN NEGATIVE; URINE BARBITURATES SCREEN NEGATIVE; URINE BENZODIAZEPINES SCREEN NEGATIVE; URINE COCAINE SCREEN NEGATIVE; URINE MARIJUANA (THC) SCREEN NEGATIVE; URINE METHADONE SCREEN NEGATIVE; URINE PHENCYCLIDINE SCREEN NEGATIVE
--- NOTE | 2020-05-30 19:18 | Non Stress Test Report ---
Non Stress Test Datetime Report Generated by CPN: 05/30/2020 19:18 DEMOGRAPHIC Test Number: 1 EGA NST: 39.0 INDICATION Indication for Study (NST) Other: Suspected rupture of membranes MONITORING Monitor Explained: Monitor Explained; Test Explained; Patient Verbalized Understanding Time on Monitor: 05/30/2020 17:45 Time off Monitor: 05/30/2020 18:44 NST Duration: 59 NST INTERVENTIONS NST Interventions: PO Hydration Physician Notified NST: Dr. Guillermo BABY A: [id number] BABY A Movement : Present Contraction Frequency : 0 FHR Baseline : 130 Accelerations : 15X15 Decelerations : None Variability : Moderate 6-25bpm NST Review: Meets Criteria for Reactive NST NST Review and Verified By : TMartin,RN NST Results: Reactive NST COMMENTS NST Comments: Neg Actim prom NST REPORT Report Trigger: Send Report
== END 2020-05-30 18:53 | disposition home or self-care (01) ==
LOC: LC 17:28
PROVIDERS: ATTEND Obstetrics & Gynecology
DX: O47.1 False labor at or after 37 completed weeks of gestation (principal); Z3A.39 39 weeks gestation of pregnancy
CPT/HCPCS: 59025; 80307; 81005; 84112; 94760

== ENCOUNTER 2020-06-03 19:18 | Inpatient (IN) | payer MEDICAID ==
[2020-06-03] MEDS ORDERED: RINGERS SOLUTION,LACTATED 1,000 ML IV PRN (19:40)
[2020-06-03] MEDS ORDERED: RINGERS SOLUTION,LACTATED 1,000 ML IV ONE (19:40)
[2020-06-03] MEDS ORDERED: DINOPROSTONE 10 MG VAGINAL INSERT.SR PV PRN (19:47)
[2020-06-03 20:05] LABS: ABSOLUTE LYMPHOCYTES (AUTO) 2.6 10^3/uL (0.5-4.7); BASOPHILS % (AUTO) 0.1 % (0-2); MEAN CORPUSCULAR VOLUME 90 fl (80-97); TOTAL CELLS COUNTED % (AUTO) 100 %
[2020-06-03 20:06] LABS: APPEARANCE,URINE SLIGHTLY-CLOUDY; BILIRUBIN,URINE NEGATIVE (NEGATIVE); COLOR,URINE YELLOW; GLUCOSE, URINE NEGATIVE (NEGATIVE); KETONES,URINE NEGATIVE (NEGATIVE); LEUKOCYTE ESTERASE,URINE TRACE (NEGATIVE); NITRITE,URINE NEGATIVE (NEGATIVE); PROTEIN,URINE NEGATIVE (NEGATIVE); URINE SPECIFIC GRAVITY 1.015; UROBILINOGEN,URINE NEGATIVE mg/dL (<2.0)
--- NOTE | 2020-06-03 20:14 | Admission Physical ---
Datetime Report Generated by CPN: 06/03/2020 20:13 CURRENT ADMISSION Chief Complaint: Scheduled Induction of Labor Indication for Induction: Other Indication for Induction- Other: Gestational diabetes Admit Impression : Term, Intrauterine Admit Plan: Admit to Unit; Initiate Labor Induction Protocol ALLERGIES Medication Allergies: No Medication Allergies: No Known Allergies (05/30/2020) Latex: No Latex Allergies Food Allergies: none Environmental Allergies: none OBSTETRICAL HISTORY EDC: 06/06/2020 00:00 : 4 Para: 2 Term: 2 SAB: 1 Livin Gestational Diabetes: Yes Rh Sensitization: No Incompetent Cervix: No SOPHIA: No Infertility: No ART Treatment: No Uterine Anomaly: No IUGR: No Hx Previous C/S: No Macrosomia: No Hx Loss/Stillborn: No PIH: No Hx : No Placenta Previa/Abruption: No Depression/PP Depression: Yes PTL/PROM: No Post Hemorrhage: No Current Procedures: Ultrasound; NST Obstetrical History Comments: G1- 2010, , term G2- 2014 SAB G3- 2015, , term G4- current, GDM SEE RECORDS Alcohol: No Marijuana : No Cocaine: No Other Illicit Drugs: No Cigarettes: Former Smoker. [id number] MEDICAL HISTORY Diabetes: Yes Diabetes Type: Gestational Diabetes Blood Transfusion: No Pulmonary Disease (Asthma, TB): No Breast Disease: No Hypertension: Yes Enterostomal Nurse Surgery: No Heart Disease: No Hosp/Surgery: Yes Autoimmune Disorder: No Anesthetic Complications: No Kidney Disease: Yes Abnormal Pap Smear: Yes Neuro/Epilepsy: No Psychiatric Disorders: Yes Other Medical Diseases: No Hepatitis/Liver Disease: No Significant Family History: No Varicosities/Phlebitis: No Trauma/Violence : No Thyroid Dysfunction: No Medical History Comments: pre-eclampsia with 2nd , severe anixety per pt, depression, childbirth, hospitalized for gallstones and cholecystectomy 2015, hospitalized for kidney stone/infection in 2016, abnormal pap in 2012 INFECTIOUS HISTORY Gonorrhea: No Genital Herpes: No Chlamydia: No Tuberculosis: No Syphilis: No Hepatitis: No HIV/AIDS Exposure: No Rash or Viral Illness: No HPV: No PHYSICAL EXAM General: Normal HEENT: Normal Neurologic: Normal Thyroid: Normal Heart: Normal Lungs: Normal Breast: Deferred Back: Normal Abdomen: Normal Genitourinary Exam: Normal Extremities: Normal DTRs: Normal Pelvic Type: Adequate Vital Signs: Reviewed VAGINAL EXAM Dilatation: 0 Effacement: 0 Station: -2 MEMBRANES Pooling: Positive Membranes: Intact FETUS A EGA: 39.4 Monitoring: External US FHR- Baseline: 120 Variability: Moderate 6-25bpm Decelerations: None FHR Category: Category I Presentation: Vertex Admit Comment: Admit for induction PLANS FOR LABOR AND DELIVERY Labor and Delivery: None Pain Management: Epidural Feeding Preference: Formula Benefit of Breast Feed Discussed: Yes Circumcision: N/A INFORMED CONSENT Signature: with User ID: [email or web address]
[2020-06-03 20:20] LABS: ABSOLUTE MONOCYTES (AUTO) 0.6 10^3/uL (0.1-1.4); ABSOLUTE NEUT (AUTO) 6.4 10^3/uL (1.7-8.2); EOSINOPHILS % (AUTO) 0.3 % (0-6); HEMATOCRIT 32.5 % (36.0-47.0); LYMPHOCYTES % (AUTO) 27.2 % (13-45); MEAN CORPUSCULAR HEMOGLOBIN 30.5 pg (27.0-33.4); MEAN CORPUSCULAR HGB CONC 33.8 g/dL (32.0-36.0); MONOCYTES % (AUTO) 6.6 % (3-13); PLATELET COUNT 294 10^3/uL (150-450); SEGMENTED NEUTROPHILS % (AUTO) 65.8 % (42-78); WHITE BLOOD COUNT 9.7 10^3/uL (4.0-10.5)
[2020-06-03 20:21] LABS: URINE AMPHETAMINES SCREEN NEGATIVE; URINE BARBITURATES SCREEN NEGATIVE; URINE BENZODIAZEPINES SCREEN NEGATIVE; URINE COCAINE SCREEN NEGATIVE; URINE MARIJUANA (THC) SCREEN NEGATIVE; URINE METHADONE SCREEN NEGATIVE; URINE PHENCYCLIDINE SCREEN NEGATIVE
[2020-06-03] MEDS ORDERED: DINOPROSTONE 10 MG VAGINAL INSERT.SR ONE (20:45)
[2020-06-03] MEDS ORDERED: OXYTOCIN/0.9 % SODIUM CHLORIDE 30 UNIT/500 ML RTUINJ ONE (20:45)
[2020-06-03] MEDS ORDERED: MISOPROSTOL 0.2 MG TABLET ONE (20:45)
[2020-06-03] MEDS ORDERED: OXYTOCIN 10 UNIT/ML VIAL ONE (20:45)
[2020-06-03] MEDS ORDERED: LIDOCAINE 1% INJ-PF (10 MG/ML) 30 ML SDV ONE (20:45)
[2020-06-03] MEDS ORDERED: ZOLPIDEM TARTRATE 5 MG TABLET ONE (20:46)
[2020-06-04] MEDS ORDERED: OXYTOCIN/0.9 % SODIUM CHLORIDE 30 UNIT/500 ML RTUINJ IV PRN ×2 (09:29→15:28)
[2020-06-04] MEDS ORDERED: HYDROXYZINE PAMOATE 50 MG CAPSULE ONE (09:37)
[2020-06-04] MEDS ORDERED: HYDROXYZINE PAMOATE 50 MG CAPSULE PO ONE (10:35)
[2020-06-04] MEDS ORDERED: MORPHINE SULFATE 10 MG/ML INJ IV ONE (12:48)
[2020-06-04] MEDS ORDERED: MORPHINE SULFATE 10 MG/ML INJ ONE (12:50)
[2020-06-04] MEDS ORDERED: FENTANYL/BUPIVACAINE/NS/PF 300 MCG/150 ML RTUINJ EPI ONE (13:24)
[2020-06-04] MEDS ORDERED: EPHEDRINE SULFATE INJ 50 MG/1 ML AMPULE ONE (13:24)
[2020-06-04] MEDS ORDERED: ROPIVACAINE HCL 0.2% INJ/PF (2 MG/ML) 20 ML SDV ONE (13:25)
[2020-06-04] MEDS ORDERED: GLYCERIN/WITCH HAZEL LEAF 1 EACH MED..WIPE TP PRN (15:28)
[2020-06-04] MEDS ORDERED: PROMETHAZINE HCL 25 MG SUPP.RECT PR PRN (15:28)
[2020-06-04] MEDS ORDERED: PROMETHAZINE HCL 25 MG TABLET PO PRN (15:28)
[2020-06-04] MEDS ORDERED: MAGNESIUM HYDROXIDE SUSP 30 ML UDCUP PO PRN (15:28)
[2020-06-04] MEDS ORDERED: ACETAMINOPHEN 325 MG TABLET PO PRN (15:28)
[2020-06-04] MEDS ORDERED: BENZOCAINE/MENTHOL AEROSOL SPRAY 56 ML TOP PRN (15:28)
[2020-06-04] MEDS ORDERED: MEASLES,MUMPS&RUBELLA VACC/PF 0.5 ML VIAL SUBCUT PRN (15:28)
[2020-06-04] MEDS ORDERED: ZOLPIDEM TARTRATE 5 MG TABLET PO PRN (15:28)
[2020-06-04] MEDS ORDERED: PROMETHAZINE HCL INJ 25 MG/1 ML VIAL IV PRN (15:28)
[2020-06-04] MEDS ORDERED: DIPHENHYDRAMINE HCL 25 MG CAPSULE PO PRN (15:28)
[2020-06-04] MEDS ORDERED: NA PHOS,M-B/NA PHOS,DI-BA (ADULT) 133 ML ENEMA PR PRN (15:28)
[2020-06-04] MEDS ORDERED: PSEUDOEPHEDRINE HCL 30 MG TABLET PO PRN (15:28)
[2020-06-04] MEDS ORDERED: DIPH/PERTUSS(ACELL)/TETANUS VAC/PF 0.5 ML SYR (>=10YO) IM PRN (15:28)
[2020-06-04] MEDS ORDERED: DIBUCAINE 1% OINTMENT 28 GM TP PRN (15:28)
[2020-06-04] MEDS ORDERED: ACETAMINOPHEN WITH CODEINE #3 TABLET PO PRN (15:28)
[2020-06-04] MEDS ORDERED: MISOPROSTOL 0.2 MG TABLET ONE (16:25)
[2020-06-04] MEDS ORDERED: MISOPROSTOL 0.2 MG TABLET PV ONE (16:32)
[2020-06-04] MEDS ORDERED: MISOPROSTOL 0.2 MG TABLET PR ONE (17:00)
[2020-06-04] MEDS: DOCUSATE SODIUM 100 MG CAPSULE PO SCH (18:57)
[2020-06-04] MEDS: FERROUS SULFATE 325 MG TABLET PO SCH (18:58)
[2020-06-04] MEDS: FAMOTIDINE 20 MG TABLET PO SCH (21:40)
[2020-06-04] MEDS: LURASIDONE HCL 60 MG TABLET PO SCH (21:40)
[2020-06-04] MEDS: BUSPIRONE HCL 10 MG TABLET PO SCH (21:40)
[2020-06-04] MEDS: IBUPROFEN 800 MG TABLET PO SCH (21:41)
[2020-06-04] MEDS: ACETAMINOPHEN WITH CODEINE #3 TABLET PO PRN (23:08)
[2020-06-05] MEDS: ACETAMINOPHEN WITH CODEINE #3 TABLET PO PRN ×4 (03:47→17:14)
[2020-06-05] MEDS: IBUPROFEN 800 MG TABLET PO SCH ×3 (05:42→21:07)
[2020-06-05] MEDS: BUSPIRONE HCL 10 MG TABLET PO SCH ×3 (05:42→21:07)
[2020-06-05] MEDS: HYDROXYZINE PAMOATE 50 MG CAPSULE PO PRN ×2 (08:39→17:19)
[2020-06-05 08:45] LABS: HEMATOCRIT 31.1 % (36.0-47.0); HEMOGLOBIN 10.6 g/dL (12.0-15.5); MEAN CORPUSCULAR HEMOGLOBIN 30.8 pg (27.0-33.4); MEAN CORPUSCULAR HGB CONC 34.1 g/dL (32.0-36.0); MEAN CORPUSCULAR VOLUME 90 fl (80-97); PLATELET COUNT 244 10^3/uL (150-450); RED BLOOD COUNT 3.44 10^6/uL (3.72-5.28); RED CELL DISTRIBUTION WIDTH 12.6 % (11.5-14.0); WHITE BLOOD COUNT 10.6 10^3/uL (4.0-10.5)
--- NOTE | 2020-06-05 09:33 | PDOC PROGRESS REPORT ---
Subjective-OB Progress Note for:: 06/05/20 Subjective: Pt doing well, bonding with baby. She reports light bleeding, reg diet and voiding without difficulty. c/o pain at epidural site, has heat/cold packs for comfort. Physical Exam (OB) Vital Signs: Temp Pulse Resp BP Pulse Ox 97.5 F 80 16 122/74 100 06/05/20 07:52 06/05/20 07:52 06/05/20 07:52 06/05/20 07:52 06/05/20 07:52 Intake & Output 06/04/20 06/05/20 06/06/20 06:59 06:59 06:59 Intake Total 1120 Balance 1120 Weight 93.1 kg - Maternal Morbidity 59. Maternal Morbidity (serious complications experinced by the mother associated with labor and delivery: None of the above - Lochia Lochia Amount: Small 10-25 ml Lochia Color: Rubra/Red - Abdomen Description: Soft Hernia Present: No Fundal Description: Firm, Midline Fundal Height: u/u - u/2 Objective-Diagnostic Laboratory: 06/05/20 07:59 06/05/20 07:59 WBC 10.6 H RBC 3.44 L Hgb 10.6 L Hct 31.1 L MCV 90 MCH 30.8 MCHC 34.1 RDW 12.6 Plt Count 244 Assessment and Plan(PN) - Assessment and Plan (1) Anxiety Is this a current diagnosis for this admission?: Yes (2) Vaginal delivery Is this a current diagnosis for this admission?: Yes - Time Spent with Patient Time with patient: Less than 15 minutes Medications reviewed and adjusted accordingly: Yes - Disposition Anticipated Discharge Disposition: Home, Self Care Anticipated Discharge Timeframe: within 24 hours
[2020-06-05] MEDS ORDERED: BUSPIRONE HCL 10 MG TABLET PO SCH (10:00)
[2020-06-05] MEDS ORDERED: LURASIDONE HCL 60 MG TABLET PO SCH (10:00)
[2020-06-05] MEDS ORDERED: HYDROXYZINE PAMOATE 50 MG CAPSULE PO SCH (10:00)
[2020-06-05] MEDS: SENNOSIDES/DOCUSATE 8.6-50 MG 1 EACH TABLET PO SCH (10:50)
[2020-06-05] MEDS: DOCUSATE SODIUM 100 MG CAPSULE PO SCH ×2 (10:50→17:15)
[2020-06-05] MEDS: FERROUS SULFATE 325 MG TABLET PO SCH ×2 (10:50→17:14)
[2020-06-05] MEDS: PRENATAL VITAMIN W DHA CAPSULE PO SCH (10:51)
[2020-06-05] MEDS: FAMOTIDINE 20 MG TABLET PO SCH ×2 (10:51→21:07)
[2020-06-05] MEDS: LURASIDONE HCL 60 MG TABLET PO SCH (21:07)
--- NOTE | 2020-06-05 22:47 | Birth Certificate Data ---
Cert Data Datetime Report Generated by BOBBY: 06/05/2020 22:47 CERTIFICATE DATA 47a. Care: Yes (05/30/2020 18:17:Carline Gracia RN) 47b. Date of First Visit: 10/20/2019 00:00 (05/30/2020 18:17:Carline Gracia RN) 47c. Date of Last Visit: 06/02/2020 00:00 (05/30/2020 18:17:Carline Gracia RN) 47d. Number of Visits: 18 (05/30/2020 18:17:Carline Gracia RN) 48a. Number of Prev Live Births: 2 (05/30/2020 18:17:Ayleen Rice RN) 48b. Now Livin (05/30/2020 18:17:Ayleen Rice RN) 48c. Live Births Now : 0 (05/30/2020 18:17:QS system process) 48d. Date of Last Live : 09/27/2015 00:00 (05/30/2020 18:17:Ayleen Rice RN) 48e. Losses: 1 (05/30/2020 18:17:Carline Gracia RN) RISK FACTORS IN THIS 49a. Diabetes: Yes (05/30/2020 18:17:Carline Gracia RN) Type of Diabetes: Gestational Diabetes (05/30/2020 18:17:Carline Gracia RN) 49b. Hypertension: Yes (05/30/2020 18:17:Carline Gracia RN) Type of Hypertension: Gestational (PIH, Pre-eclampsia) (05/30/2020 18:17:Carline Gracia RN) 49c. Previous Births: 0 (05/30/2020 18:17:Tania Petty RN) 49d. Stillborns: No (05/30/2020 18:17:Carline Gracia RN) 49d. IUGR: No (05/30/2020 18:17:Carline Gracia RN) 49e. Infertility Treatment: No (05/30/2020 18:17:Carline Gracia RN) 49f. Previous Cesareans: 0 (05/30/2020 18:17:Tania Petty RN) Mother's Height 50b. Height Inches: 62 (06/04/2020 18:45:QS system process) 50b. Height Inches: 62 (06/04/2020 18:23:QS system process) 50b. Height Inches: 62 (06/04/2020 10:19:QS system process) 50b. Height Inches: 62 (06/03/2020 19:40:QS system process) 50b. Height Inches: 62 (05/30/2020 18:01:QS system process) Mother's Weight 51a. Pre- Weight: 168 (05/30/2020 18:17:Carline Gracia RN) 51b. Weight at Time of Delivery: 205 (06/04/2020 18:45:QS system process) 51b. Weight at Time of Delivery: 205 (06/04/2020 18:23:QS system process) 51b. Weight at Time of Delivery: 205 (06/04/2020 10:19:QS system process) 51b. Weight at Time of Delivery: 205 (06/03/2020 19:40:QS system process) 51b. Weight at Time of Delivery: 207 (05/30/2020 18:01:QS system process) 52. Dt Last Normal Menses Began: 08/24/2019 00:00 (05/30/2020 18:17:Carline Gracia RN) Infections Present/Treated 53a. Gonorrhea: No (05/30/2020 18:17:Carline Gracia RN) Results this Hospital Visit : Negative (05/30/2020 18:17:Carline Gracia RN) 53b. Syphilis: No (05/30/2020 18:17:Carline Gracia RN) Results this Hospital Visit: NONREACTIVE (06/03/2020 19:55:QS system process) 53c. Chlamydia: No (05/30/2020 18:17:Carline Gracia RN) Results this Hospital Visit: Negative (05/30/2020 18:17:Carline Gracia RN) 53d. Hepatitis B: No (05/30/2020 18:17:Carline Gracia RN) Results this Hospital Visit: Negative (05/30/2020 18:17:Carline Gracia RN) 53e. Hepatitis C: Negative (05/30/2020 18:17:Carline Gracia RN) 53i. Date Tested: 10/20/2019 00:00 (05/30/2020 18:17:Carline Gracia RN) Obstetric Procedures 54a, b, c. Obstetric Procedures: Ultrasound; NST (05/30/2020 18:17:Carline Gracia RN) Cigarette Smoking 55b. Packs: 1 (05/30/2020 18:17:Carline Gracia RN) Onset of Labor 56a. PROM >12 Hrs: 3.27 (05/30/2020 18:17:QS system process) 56b. Precipitous Labor <3 Hrs: 3 (05/30/2020 18:17:QS system process) 56c. Prolonged Labor > 20 Hrs: 3 (05/30/2020 18:17:QS system process) 57a. Induction of Labor: Induction (05/30/2020 18:17:Tania Petty RN) 57a. Induction of Labor: Cervidil (06/03/2020 20:59:Carline Gracia RN) 57c. Non-Vertex Presentation A: Vertex (05/30/2020 18:17:Tania Petty RN) 57d. Steroids - Lung Mat: None (05/30/2020 18:17:Carline Gracia RN) 57d. Steroids - Lung Mat: Not Applicable (05/30/2020 18:17:Carline Gracia RN) 57e. Antibiotics During Labor: n/a (05/30/2020 18:17:Tania Petty RN) 57f. Mat [place] or Temp >100.4: 98.0 (05/30/2020 18:17:Tania Petty RN) 57g. Moderate/Heavy Meconium: Clear (06/04/2020 12:11:Tania Petty RN) 57i. Epidural/Spinal Anesthesia: Epidural (05/30/2020 18:17:Tania Petty RN) Method of Delivery 58a. Forceps - Unsuccessful A: N/A (05/30/2020 18:17:Tania Petty RN) 58b. Vacuum - Unsuccessful A: N/A (05/30/2020 18:17:Tania Petty RN) 58c. Presentation at 58c. Presentation at - A : Vertex (05/30/2020 18:17:Tania Petty RN) 58c. Presentation at - A : N/A (05/30/2020 18:17:Tania Petty RN) 58c. Presentation at - A : Cephalic (06/04/2020 08:11:Tania Petty RN) Final Route and Method of Del 58d. Baby A Route/Delivery: Vaginal (05/30/2020 18:17:Tania Petty RN) 58e. Trial of Labor Attempted: No (05/30/2020 18:17:Carline Gracia RN) 58e. Trial of Labor Attempted A: N/A (05/30/2020 18:17:Carline Gracia RN) 58e. Trial of Labor Attempted B: N/A (05/30/2020 18:17:Carline Gracia RN) Maternal Morbidity 59b. 3rd or 4th Degree Lacs: None (05/30/2020 18:17:Tania Petty, RN) Birthweight Baby A: 2771 (05/30/2020 18:17:Eryn BlakeTRACY gramajo) 60a. Pounds : 6 (05/30/2020 18:17:QS system process) 60b. Ounces: 2 (05/30/2020 18:17:QS system process) 61. GA at Delivery Baby A: 39.5 (05/30/2020 18:17:Tania Petty RN) : Full Term- 39- 40.6 Weeks (05/30/2020 18:17:QS system process) 62a. 5 Minute Baby A: 9 (05/30/2020 18:17:QS system process)
[2020-06-06] MEDS: BUSPIRONE HCL 10 MG TABLET PO SCH (05:49)
[2020-06-06] MEDS: IBUPROFEN 800 MG TABLET PO SCH (05:49)
[2020-06-06] MEDS: ACETAMINOPHEN WITH CODEINE #3 TABLET PO PRN ×2 (06:12→10:51)
--- NOTE | 2020-06-06 07:47 | PDOC DISCHARGE SUMMARY ---
Impression - Admit/DC Date/PCP Admission Date/Primary Care Provider: 06/03/20 19:18 [facility] Discharge Date: 06/06/20 - Discharge Diagnosis (1) Anxiety Is this a current diagnosis for this admission?: Yes (2) Vaginal delivery Is this a current diagnosis for this admission?: Yes - Additional Information Resuscitation Status: Full Code Discharge Diet: Regular Discharge Activity: Balance Activity w/Rest, Pelvic Rest Referrals: ARTEMIO PATEL FNP-C [Primary Care Provider] - Prescriptions: Ibuprofen [Motrin 800 mg Tablet] 800 mg PO Q8HP PRN #60 tablet PRN Reason: Home Medications: Buspirone HCl 30 mg PO DAILY 05/30/20 Hydroxyzine Pamoate [Vistaril 50 mg Capsule] 50 mg PO DAILY 05/30/20 Lurasidone HCl [Latuda 60 mg Tablet] 60 mg PO DAILY 05/30/20 Prenat 115/Iron Fum/Folic/Dss [ 19 Tablet] 1 tab PO DAILY 06/03/20 Ibuprofen [Motrin 800 mg Tablet] 800 mg PO Q8HP PRN #60 tablet 06/06/20 HPI Gestational Age: 39 Reason(s) for Admission: Induction of Labor, Gestional Diabetes Procedures: NST Intrapartum Procedure(s): Spontaneous Vaginal Delivery Hospital Course 59. Maternal Morbidity (serious complications experinced by the mother associated with labor and delivery: None of the above Results Laboratory Results: WBC 10.6 10^3/uL (4.0-10.5) H 06/05/20 07:59 RBC 3.44 10^6/uL (3.72-5.28) L 06/05/20 07:59 Hgb 10.6 g/dL (12.0-15.5) L 06/05/20 07:59 Hct 31.1 % (36.0-47.0) L 06/05/20 07:59 MCV 90 fl (80-97) 06/05/20 07:59 MCH 30.8 pg (27.0-33.4) 06/05/20 07:59 MCHC 34.1 g/dL (32.0-36.0) 06/05/20 07:59 RDW 12.6 % (11.5-14.0) 06/05/20 07:59 Plt Count 244 10^3/uL (150-450) 06/05/20 07:59 Lymph % (Auto) 27.2 % (13-45) 06/03/20 19:55 Le[place] % (Auto) 6.6 % (3-13) 06/03/20 19:55 Eos % (Auto) 0.3 % (0-6) 06/03/20 19:55 Baso % (Auto) 0.1 % (0-2) 06/03/20 19:55 Absolute Neuts (auto) 6.4 10^3/uL (1.7-8.2) 06/03/20 19:55 Absolute Lymphs (auto) 2.6 10^3/uL (0.5-4.7) 06/03/20 19:55 Absolute Monos (auto) 0.6 10^3/uL (0.1-1.4) 06/03/20 19:55 Absolute Eos (auto) 0.0 10^3/uL (0.0-0.6) 06/03/20 19:55 Absolute Basos (auto) 0.0 10^3/uL (0.0-0.2) 06/03/20 19:55 Seg Neutrophils % 65.8 % (42-78) 06/03/20 19:55 Urine Color YELLOW 06/03/20 19:38 Urine Appearance SLIGHTLY-CLOUDY 06/03/20 19:38 Urine pH 6.0 (5.0-9.0) 06/03/20 19:38 Ur Specific [place] 1.015 06/03/20 19:38 Urine Protein NEGATIVE mg/dL (NEGATIVE) 06/03/20 19:38 Urine Glucose (UA) NEGATIVE mg/dL (NEGATIVE) 06/03/20 19:38 Urine Ketones NEGATIVE mg/dL (NEGATIVE) 06/03/20 19:38 Urine Blood NEGATIVE (NEGATIVE) 06/03/20 19:38 Urine Nitrite NEGATIVE (NEGATIVE) 06/03/20 19:38 Urine Bilirubin NEGATIVE (NEGATIVE) 06/03/20 19:38 Urine Urobilinogen NEGATIVE mg/dL (<2.0) 06/03/20 19:38 Ur Leukocyte Esterase TRACE (NEGATIVE) H 06/03/20 19:38 Urine Ascorbic Acid NEGATIVE (NEGATIVE) 06/03/20 19:38 Urine Opiates Screen NEGATIVE 06/03/20 19:38 Urine Methadone Screen NEGATIVE 06/03/20 19:38 Ur Barbiturates Screen NEGATIVE 06/03/20 19:38 Ur Phencyclidine Scrn NEGATIVE 06/03/20 19:38 Ur Amphetamines Screen NEGATIVE 06/03/20 19:38 U Benzodiazepines Scrn NEGATIVE 06/03/20 19:38 Urine Cocaine Screen NEGATIVE 06/03/20 19:38 U Marijuana (THC) Screen NEGATIVE 06/03/20 19:38 RPR NONREACTIVE (NONREACTIVE) 06/03/20 19:55 Blood Type O POSITIVE 06/03/20 19:55 Antibody Screen NEGATIVE 06/03/20 19:55 Plan Plan of Treatment: f/u at [facility] Time Spent: Less than 30 Minutes
[2020-06-06] MEDS: PRENATAL VITAMIN W DHA CAPSULE PO SCH (10:50)
[2020-06-06] MEDS: SENNOSIDES/DOCUSATE 8.6-50 MG 1 EACH TABLET PO SCH (10:51)
[2020-06-06] MEDS: FAMOTIDINE 20 MG TABLET PO SCH (10:51)
[2020-06-06] MEDS: HYDROXYZINE PAMOATE 50 MG CAPSULE PO PRN (10:51)
[2020-06-06] MEDS: FERROUS SULFATE 325 MG TABLET PO SCH (10:51)
[2020-06-06] MEDS: DOCUSATE SODIUM 100 MG CAPSULE PO SCH (10:51)
[2020-06-06 12:21] VITALS: BP 128/82
--- NOTE | 2020-06-08 12:47 | Delivery Summary ---
Del Sum A-C Datetime Report Generated by CPN: 06/08/2020 12:47 DELIVERY PERSONNEL DELIVERY PERSONNEL: [id number] Delivery Doctor:: Sinai Bain CNM Labor and Delivery Nurse:: Tania Petty RN Nursery Nurse:: Eryn Dudley RN [place]/DISPUTE RESOLUTION SPECIALIST: Jody Burch, ST MATERNAL INFORMATION Delivery Anesthesia: Epidural Medications After Delivery: Pitocin 30 Units in 500ml NS/D5W Delivery QBL: 45 Maternal Complications: None Provider Comments: SVDVF over intact perineum, CHERYLE. to maternal abd for NRP, cry after stimulation. Cord clamped x 2, cut, 3VC noted. Placenta spont via lai with minimal blood loss. Fundus firmed immediatly. Apgars 8,9. Mother and stable. LABOR SUMMARY EDC: 06/06/2020 00:00 No. Babies in Womb: 1 Attempted: No Labor Anesthesia: Epidural LABOR INFORMATION Reason for Induction: Maternal Diabetes Onset of Labor: 06/04/2020 12:15 Complete Dilatation: 06/04/2020 15:19 Cervical Ripening Agents: Cervidil Oxytocin: Induction Group B Beta Strep: negative Antibiotics # of Doses: n/a Antibiotics Time of Last Dose: n/a Name of Antibiotic Given: n/a Steroids Given: None Reason Steroids Not Administered: Not Applicable MEMBRANES Membranes Rupture Method: Artificial Rupture of Membranes: 06/04/2020 12:11 Length of Rupture (hr): 3.27 Amniotic Fluid Color: Clear Amniotic Fluid Amount: Small Amniotic Fluid Odor: Normal STAGES OF LABOR Stage 1 hr: 3 Stage 1 min: 4 Stage 2 hr: 0 Stage 2 min: 8 Stage 3 hr: 0 Stage 3 min: 9 Total Time in Labor hr: 3 Total Time in Labor min: 21 VAGINAL DELIVERY Episiotomy: None Laceration #1: None Laceration Extension #1: N/A Laceration Repair: Not Applicable BABY A INFORMATION Infant Delivery Date/Time: 06/04/2020 15:27 Method of Delivery: Vaginal Nurse Controlled Delivery: No Born in Route : No : N/A Forceps: N/A Vacuum Extraction: N/A Shoulder Dystocia : No PRESENTATION/POSITION BABY A Presentation: Cephalic Cephalic Presentation: Vertex Vertex Position: Left Occipital Anterior Breech Presentation: N/A PLACENTA INFORMATION BABY A Placenta Delivery Time : 06/04/2020 15:36 Placenta Method of Delivery: Spontaneous Placenta Status: Delivered SCORES BABY A Heart Rate 1 min: >100 bpm Resp Effort 1 min: Good Cry Reflex Irritability 1 min: Cough or Sneeze or Pulls Away Muscle Tone 1 min: Active Motion Color 1 min: Blue/Pale Resuscitation Effort 1 min: Tactile Stimulation SCORE 1 MIN: 8 Heart Rate 5 min: >100 bpm Resp Effort 5 min: Good Cry Reflex Irritability 5 min: Cough or Sneeze or Pulls Away Muscle Tone 5 min: Active Motion Color 5 min: Body [place], Extremities Blue Resuscitation Effort 5 min: N/A SCORE 5 MIN: 9 INFANT INFORMATION BABY A Gestational Age at Delivery: 39.5 Gestational Status: Full Term- 39- 40.6 Weeks Outcome : Liveborn Infant Condition : Stable Infant Sex: Female IDENTIFICATION BABY A Infant Verification Date/Time: 06/04/2020 15:35 ID Band Number: [id number] Mother's Name Verified: Yes Infant RN Verifying Infant: Randall Petty TRACY Additional Verifying Personnel: Kb Burch ST WEIGHT/LENGTH BABY A Birthweight (gm): 2771 Weight (lb): 6 Weight (oz): 2 Length (in): 18.75 Length (cm): 47.63 CORD INFORMATION BABY A No. Cord Vessels: 3 Nuchal Cord : N/A Cord Blood Taken: Yes-For Eval (Mom's Blood Type - or O+) Infant Suction: None ASSESSMENT BABY A Physical Findings at Delivery: Within Normal Limits Respirations: Appears Normal Skin to Skin: Yes Management Rep/ALS Called : No Infant Care By: Hawa Dudley RN Transferred To: Remains with Mother BABY B INFORMATION : N/A SIGNATURES Assignment: Kerry Lofton MD Signature: with User ID: [email or web address] : with User ID: [email or web address] : I was personally available for consultation and serving as supervising physician for the P.
== END 2020-06-06 12:50 | disposition home or self-care (01) | DRG 807 ==
LOC: LR 19:18 → 2S 06-04 18:00
PROVIDERS: ADMIT Obstetrics & Gynecology; ATTEND Obstetrics & Gynecology
PROC: 3E0P7VZ Introduction of Hormone into Female Reproductive, Via Natural or Artificial Opening (ICD-10-PCS; 2020-06-03)
PROC: 10E0XZZ Delivery of Products of Conception, External Approach (ICD-10-PCS; principal; 2020-06-04)
DX: O24.429 Gestational diabetes mellitus in childbirth, unspecified control (principal); Z37.0 Single live birth; O99.344 Other mental disorders complicating childbirth; F41.9 Anxiety disorder, unspecified; Z3A.39 39 weeks gestation of pregnancy
CPT/HCPCS: 1967; 36415; 80307; 81005; 85025; 85027; 86592; 86850; 86900; 86901; 94760; J2270; J2590; J2795; J3010; J3490

== ENCOUNTER 2020-07-10 09:08 | Emergency (ER) | payer MEDICAID ==
[2020-07-10 10:17] LABS: APPEARANCE,URINE SLIGHTLY-CLOUDY; BILIRUBIN,URINE NEGATIVE (NEGATIVE); COLOR,URINE YELLOW; GLUCOSE, URINE NEGATIVE (NEGATIVE); KETONES,URINE NEGATIVE (NEGATIVE); LEUKOCYTE ESTERASE,URINE SMALL (NEGATIVE); NITRITE,URINE NEGATIVE (NEGATIVE); PROTEIN,URINE NEGATIVE (NEGATIVE); URINE SPECIFIC GRAVITY 1.009; UROBILINOGEN,URINE NEGATIVE mg/dL (<2.0)
[2020-07-10] MEDS ORDERED: KETOROLAC TROMETHAMINE INJ/PF 30 MG/1 ML SDV IV ONE (10:18)
--- NOTE | 2020-07-10 10:23 | ER Document Report ---
ED GI/ - General Chief Complaint: Urinary Problem Stated Complaint: RIGHT FLANK PAIN Time Seen by Provider: 07/10/20 10:03 Primary Care Provider: ARTEMIO PATEL FNP-C [Primary Care Provider] - Follow up as needed Notes: HPI: 29-year-old female status post normal spontaneous vaginal delivery 5 weeks ago who presents today with some right flank pain and some urgency with urination. Patient states a history of kidney stone. Patient states she sustained no vaginal lacerations during the delivery. Patient states around 3 days ago she started to have some right flank pain. She denies any nausea, vomiting, or fevers. She does not breast-feed. She saw her RANGE MANAGEMENT SPECIALIST status post follow-up for the normal spontaneous vaginal delivery 10 days ago and was placed on antibiotics. She states that this is not helping. She denies any vaginal bleeding, discharge, or vaginal lesions. ROS: See HPI All other review of systems reviewed and otherwise negative Reviewed vital signs and nursing note as charted by RN. PHYSICAL EXAM: CONSTITUTIONAL: Alert and oriented and responds appropriately to questions. Well-appearing; well-nourished HEAD: Normocephalic; atraumatic EYES: Sclerae non-icteric ENT: Normal nose; no rhinorrhea; moist mucous membranes; pharynx without lesions noted NECK: Supple without meningismus; non-tender; no cervical lymphadenopathy, no masses CARD: Regular rate and rhythm; no murmurs; symmetric distal pulses RESP: Normal chest excursion without splinting or tachypnea; breath sounds clear and equal bilaterally; no wheezes, no rhonchi, no rales ABD/GI: Normal bowel sounds; non-distended; soft, nontender to deep palpation of all 4 quadrants of the abdomen with no palpable masses. BACK: The back appears normal and is non-tender to palpation; minimal right CVA tenderness with no swelling erythema EXT: Normal ROM in all joints; non-tender to palpation; no edema SKIN: No acute lesions noted NEURO: CN 2-12 intact; 5/5 bilateral upper and lower extremity strength with sensation intact to light touch PSYCH: The patient's mood and manner are appropriate. Grooming and personal hygiene are appropriate. TRAVEL OUTSIDE OF THE [place] IN LAST 30 DAYS: No - Related Data Allergies/Adverse Reactions: No Known Allergies Allergy (Verified 07/10/20 09:37) Past Medical History - Social History Smoking Status: Current Every Day Smoker Chew tobacco use (# tins/day): No Frequency of alcohol use: Occasional Drug Abuse: None Family History: DM, Hyperlipidemia - Past Medical History Cardiac Medical History: Denies: Hx Coronary Artery Disease, Hx Heart Attack, Hx Hypertension Pulmonary Medical History: Denies: Hx Asthma, Hx Bronchitis, Hx COPD, Hx Pneumonia Neurological Medical History: Reports: Hx Migraine. Denies: Hx Cerebrovascular Accident, Hx Seizures Renal/ Medical History: Reports: Hx Kidney Stones. Denies: Hx Peritoneal Dialysis GI Medical History: Reports: Hx Gastroesophageal Reflux Disease Musculoskeletal Medical History: Denies Hx Arthritis, Reports Hx Musculoskeletal Deformity - Chronic neck and back pain Past Surgical History: Reports: Hx Cholecystectomy, Hx Kidney (Renal Surgery) - kidney stone removed with stent placed, Hx Oral Surgery - [place] teeth extraction. Two left molar and one right molar extraction. - Immunizations Immunizations up to date: Yes Hx Diphtheria, Pertussis, Tetanus Vaccination: No Physical Exam - Vital signs Vitals: Temp Pulse Resp BP Pulse Ox 98.8 F 71 16 131/71 H 98 07/10/20 09:13 07/10/20 09:13 07/10/20 09:13 07/10/20 09:13 07/10/20 09:13 Course - Re-evaluation Re-evalutation: 07/10/20 10:22 Given the patient's history and physical examination, I will obtain a renal colic CT scan as well as a repeat urine analysis with culture and electrolytes. I would like to evaluate the possibility of a kidney stone, urinary tract infection, or other intra-abdominal pathology. If this is unremarkable I may proceed with a pelvic examination to further evaluate the vaginal/cervix region. 07/10/20 12:49 CT as recorded. Labs as recorded. Patient does have leukocytes in the urine. Pelvic examination shows no obvious external or internal lesions. Minimal discharge in the vaginal vault. No adnexal masses or tenderness. Patient's pain is much improved. Still no abdominal tenderness on repeat examination. Patient was provided Macrobid on previous evaluation by RANGE MANAGEMENT SPECIALIST. I will start the patient on Bactrim. Patient does not breast-feed. Patient will be dischar ged home with strict return precautions and follow-up with RANGE MANAGEMENT SPECIALIST pending GC/chlamydia. - Vital Signs Vital signs: Temp Pulse Resp BP Pulse Ox 98.8 F 71 16 131/71 H 98 07/10/20 09:13 07/10/20 09:13 07/10/20 09:13 07/10/20 09:13 07/10/20 09:13 - Laboratory Result Diagrams: 07/10/20 10:50 07/10/20 10:50 Laboratory results interpreted by me: 07/10/20 09:15 Ur Leukocyte Esterase SMALL H Discharge - Discharge Clinical Impression: Pain with urination, Right flank pain Condition: Good Disposition: HOME, SELF-CARE Additional Instructions: Come back immediately for any increased pain, change in location or quality of pain, fevers or vomiting, cough or shortness of breath, or any other acute problems. Please start taking the Bactrim as prescribed and please follow-up with RANGE MANAGEMENT SPECIALIST for reassessment and urine culture evaluation. Prescriptions: Sulfamethoxazole/Trimethoprim [Bactrim Ds Tablet] 1 each PO BID #20 tablet Hydrocodone/Acetaminophen [[place] 5-325 mg Tablet] 1 tab PO Q8 #8 tablet Referrals: ARTEMIO PATEL, ORNAMENTER HAND-C [Primary Care Provider] - Follow up as needed
[2020-07-10 11:04] LABS: ABSOLUTE EOSINOPHILS # (AUTO) 0.1 10^3/uL (0.0-0.6); ABSOLUTE LYMPHOCYTES (AUTO) 2.5 10^3/uL (0.5-4.7); ABSOLUTE MONOCYTES (AUTO) 0.4 10^3/uL (0.1-1.4); ABSOLUTE NEUT (AUTO) 4.9 10^3/uL (1.7-8.2); BASOPHILS % (AUTO) 0.3 % (0-2); EOSINOPHILS % (AUTO) 1.3 % (0-6); HEMATOCRIT 38.6 % (36.0-47.0); HEMOGLOBIN 13.5 g/dL (12.0-15.5); LYMPHOCYTES % (AUTO) 31.9 % (13-45); MEAN CORPUSCULAR VOLUME 89 fl (80-97); MONOCYTES % (AUTO) 4.9 % (3-13); PLATELET COUNT 328 10^3/uL (150-450); RED BLOOD COUNT 4.36 10^6/uL (3.72-5.28); RED CELL DISTRIBUTION WIDTH 12.8 % (11.5-14.0); SEGMENTED NEUTROPHILS % (AUTO) 61.6 % (42-78); TOTAL CELLS COUNTED % (AUTO) 100 %
--- NOTE | 2020-07-10 11:08 | RADIOLOGY REPORT (SQ) ---
EXAM DESCRIPTION: CT ABD/PELVIS NO ORAL OR IV IMAGES COMPLETED DATE/TIME: 07/10/2020 10:38 am REASON FOR STUDY: 2; R flank pain; h/o stones; s/p vag del 5 weeks COMPARISON: CT abdomen pelvis 07/23/2018 TECHNIQUE: CT scan of the abdomen and pelvis performed without intravenous or oral contrast. Images reviewed with lung, soft tissue, and bone windows. Reconstructed coronal and sagittal MPR images revi ewed. All images stored on PACS. All CT scanners at this facility use dose modulation, iterative reconstruction, and/or weight based d osing when appropriate to reduce radiation dose to as low as reasonably achievable (ALARA). [facility]: Dose Right [facility]: CareDose [facility]: Dose Right [facility]: Teradose 4D [facility]: [employer] RADIATION DOSE: CT Rad equipment meets quality standard of care and radiation dose reduction techniq ues were employed. CTDIvol: 11.6 mGy. DLP: 600 mGy-cm.mGy. LIMITATIONS: None. FINDINGS: LOWER CHEST: No significant findings. No nodules or infiltrates. NON-CONTRASTED LIVER, SPLEEN, ADRENALS: Evaluation limited by lack of IV contrast. No identified sign ificant masses. PANCREAS: No masses. No peripancreatic inflammatory changes. GALLBLADDER: Surgically absent. RIGHT KIDNEY AND URETER: No solid masses. No significant calcification. No hydronephrosis or hydroure ter. LEFT KIDNEY AND URETER: No solid masses. No significant calcification. No hydronephrosis or hydrouret er. AORTA AND RETROPERITONEUM: No aneurysm. No retroperitoneal masses or adenopathy. BOWEL AND PERITONEAL CAVITY: No obvious masses or inflammatory changes. No free fluid. APPENDIX: Contains some hyperdense material but is otherwise normal in morphology and size. PELVIS, BLADDER, AND ABDOMINAL WALL:No abnormal masses. No free fluid. Bladder normal. BONES: No significant findings. OTHER: No other significant finding. IMPRESSION: No urolithiasis or evidence of obstructive uropathy. No acute inflammatory changes in t he abdomen or pelvis. TECHNICAL DOCUMENTATION: JOB ID: [id number] Quality ID # [id number]: Final reports with documentation of one or more dose reduction techniques (e.g., Au tomated exposure control, adjustment of the mA and/or kV according to patient size, use of iterative reconstruction technique) 2010 [employer]- All Rights Reserved Reading location - IP/workstation name: [email or web address]
[2020-07-10 11:25] LABS: ANION GAP 7 (5-19); BLOOD UREA NITROGEN 12 mg/dL (7-20); CALCIUM 9.6 mg/dL (8.4-10.2); CARBON DIOXIDE 28 mmol/L (22-30); CHLORIDE 105 mmol/L (98-107); GLUCOSE 79 mg/dL (75-110); POTASSIUM 4.6 mmol/L (3.6-5.0)
[2020-07-10] MEDS ORDERED: CEFTRIAXONE 1 GM/D5W RTU 1 GM/50 ML RTUPB IV ONE (11:28)
[2020-07-10 12:37] LABS: BACTERIA (WET MOUNT) 3+ BACTERIA SEEN; EPITHELIALS (WET MOUNT) 3+ EPITHELIALS SEEN; RBCS (WET MOUNT) 1+ RBCS SEEN; T.VAGINALIS (WET MOUNT) NO TRICHOMONAS SEEN; WBCS (WET MOUNT) 3+ WBCS SEEN; YEAST (WET MOUNT) NO YEAST SEEN
[2020-07-10 14:02] LABS: CHLAM PCR NOT DETECTED (NOT DETECT)
[2020-07-10 16:00] VITALS: BP 126/69
== END 2020-07-10 14:00 | disposition home or self-care (01) ==
LOC: ER 09:08
DX: O90.9 Complication of the puerperium, unspecified (principal); R30.0 Dysuria; R10.9 Unspecified abdominal pain; F17.200 Nicotine dependence, unspecified, uncomplicated; Z90.49 Acquired absence of other specified parts of digestive tract
CPT/HCPCS: 99285; 96375; 96365; 36415; 87210; 85025; 80048; 81001; 87491; 87591; 74176; J1885; J0696

== ENCOUNTER → 2020-07-12 | Outpatient (CLI) | payer MEDICAID ==
--- NOTE | 2020-07-12 14:51 | RADIOLOGY REPORT (SQ) ---
EXAM DESCRIPTION: CT ABD/PELVIS WITH IV ORAL IMAGES COMPLETED DATE/TIME: 07/12/2020 2:37 pm REASON FOR STUDY: R30.9 PAINFUL MICTURITION, UNSPECIFIED M54.5 LOW BACK PAIN M54.5 LOW BACK PAIN R3 0.9 PAINFUL MICTURITION, UNSPECIFIED COMPARISON: 07/10/2020, 03/07/2017 TECHNIQUE: CT scan of the abdomen and pelvis performed using helical scanning technique with dynamic intravenous contrast injection. No oral contrast. Images reviewed with lung, soft tissue, and bone windows. Reconstructed coronal and sagittal MPR images reviewed. Delayed images for evaluation of the urinary system also acquired. All images stored on PACS. All CT scanners at this facility use dose modulation, iterative reconstruction, and/or weight based d osing when appropriate to reduce radiation dose to as low as reasonably achievable (ALARA). [facility]: Dose Right [facility]: CareDose [facility]: Dose Right [facility]: Teradose 4D [facility]: [employer] CONTRAST TYPE AND DOSE: contrast/concentration: Isovue 350.00 mmol/ml; Total Contrast Delivered: 100 .0 ml; Total Saline Delivered: 42.0 ml RENAL FUNCTION: BUN 12, creatinine 0.84 RADIATION DOSE: CT Rad equipment meets quality standard of care and radiation dose reduction techniq ues were employed. CTDIvol: 13.5 - 13.9 mGy. DLP: 1440 mGy-cm.. LIMITATIONS: None. FINDINGS: LOWER CHEST: No significant findings. No nodules or infiltrates. LIVER: Normal size. No masses. No dilated ducts. SPLEEN: Normal size. No focal lesions. PANCREAS: No masses. No significant calcifications. No adjacent inflammation or peripancreatic fluid collections. Pancreatic duct not dilated. GALLBLADDER: Surgically absent. ADRENAL GLANDS: No significant masses or asymmetry. RIGHT KIDNEY AND URETER: No solid masses. No significant calcifications. No hydronephrosis or hyd roureter. LEFT KIDNEY AND URETER: No solid masses. No significant calcifications. No hydronephrosis or hydr oureter. AORTA AND VESSELS: No aneurysm. No dissection. Renal arteries, SMA, celiac without stenosis. RETROPERITONEUM: No retroperitoneal adenopathy, hemorrhage or masses. BOWEL AND PERITONEAL CAVITY: No masses or inflammatory changes. No free fluid or peritoneal masses. APPENDIX: Normal. PELVIS: No mass. No free fluid. Normal bladder. ABDOMINAL WALL: No masses. No hernias. BONES: No significant or acute findings. OTHER: No other significant finding. IMPRESSION: NO SIGNIFICANT OR ACUTE FINDING IN THE ABDOMEN OR PELVIS ON CT SCAN WITH IV CONTRAST. TECHNICAL DOCUMENTATION: JOB ID: [id number] Quality ID # 436: Final reports with documentation of one or more dose reduction techniques (e.g., Au tomated exposure control, adjustment of the mA and/or kV according to patient size, use of iterative reconstruction technique) 2010 [employer]- All Rights Reserved Reading location - IP/workstation name: [email or web address]
== END ==
LOC: RAD 11:24
PROVIDERS: ATTEND Obstetrics & Gynecology
DX: M54.5 Low back pain (principal); R30.9 Painful micturition, unspecified
CPT/HCPCS: 74177

== ENCOUNTER 2020-07-29 09:32 | Day surgery (SDC) | payer MEDICAID ==
[2020-07-26 11:29] LABS: HEMATOCRIT 36.7 % (36.0-47.0); HEMOGLOBIN 12.4 g/dL (12.0-15.5); MEAN CORPUSCULAR HEMOGLOBIN 30.2 pg (27.0-33.4); MEAN CORPUSCULAR HGB CONC 33.8 g/dL (32.0-36.0); MEAN CORPUSCULAR VOLUME 89 fl (80-97); PLATELET COUNT 340 10^3/uL (150-450); RED BLOOD COUNT 4.11 10^6/uL (3.72-5.28); RED CELL DISTRIBUTION WIDTH 13.6 % (11.5-14.0)
[2020-07-26 11:30] LABS: APPEARANCE,URINE CLEAR; BILIRUBIN,URINE NEGATIVE (NEGATIVE); COLOR,URINE STRAW; GLUCOSE, URINE NEGATIVE (NEGATIVE); KETONES,URINE NEGATIVE (NEGATIVE); LEUKOCYTE ESTERASE,URINE NEGATIVE (NEGATIVE); NITRITE,URINE NEGATIVE (NEGATIVE); PROTEIN,URINE NEGATIVE (NEGATIVE); URINE SPECIFIC GRAVITY 1.005; UROBILINOGEN,URINE NEGATIVE mg/dL (<2.0)
[~2020-07-29 09:32] MED LIST: DEXAMETHASONE SOD PHOSPHATE INJ 4 MG/1 ML VIAL ONE; KETOROLAC TROMETHAMINE 60 MG/2 ML SDV ONE; LACTATED RINGERS 1000 ML IV PRN; LIDOCAINE 0.5% INJ-PF (5 MG/ML) 50 ML SDV SUBCUT PRN; ONDANSETRON HCL INJ/PF 4 MG/2 ML SDV ONE
[2020-07-29] MEDS ORDERED: MIDAZOLAM 2 MG/2 ML INJ ONE (11:33)
[2020-07-29] MEDS ORDERED: FENTANYL CITRATE INJ/PF 100 MCG/2 ML AMPUL ONE (11:33)
[2020-07-29] MEDS ORDERED: PROPOFOL INJ 200 MG/20 ML VIAL IV ONE (11:33)
--- NOTE | 2020-07-29 13:18 | Operative Report ---
Operative Report DATE OF SURGERY: 07/29/20 PREOPERATIVE DIAGNOSIS: Unwanted fertility. Multigravida POSTOPERATIVE DIAGNOSIS: same as above OPERATION: Laparoscopic bilateral tubal ligation with Filshie clips SURGEON: ELAN GARCIA ANESTHESIA: GA TISSUE REMOVED OR ALTERED: none COMPLICATIONS: None ESTIMATED BLOOD LOSS: 5cc INTRAOPERATIVE FINDINGS: Normal appearing uterus, bilateral fallopian tubes and right ovary. Left ovary with small simple appearing cyst. Veins on the left side of uterus are engored. Small changes in posterior cul de sac consistent with mild endometriosis PROCEDURE: IV fluids: per anesthesia record Urinary output: 50 cc emptied from bladder prior to procedure Findings: Normal-appearing uterus bilateral fallopian tubes and right ovary. Left ovary with small simple appearing cyst. Veins in left pelvis engorged. CHanges in posterior cul de sac consistent with mild endometriosis. Liver edge seen and appears normal Position: To recovery room in stable condition Description of procedure: The patient was taken to the operating room and general anesthesia was administered and found to be adequate. She was then placed on the OR table in the dorsal lithotomy position. The Patient was prepped and draped in usual sterile fashion. Timeout was taken. A Stevens retractor was used as well as a weighted speculum to visualize the cervix. The anterior lip of the cervix was then grasped with a single tooth tenaculum and a Prestodiag uterine manipulator was placed. At this time attention was turned of the patient's abdomen and sterile gloves were donned a 1 cm infra umbilical incision was made vertically and carried down to the level of the rectus fascia. The rectus fascia was then grasped with 2 Shekhar clamps elevated and incised with Simon scissors. A digital sweep was done noting entry into the peritoneum. The fascia was tagged bilaterally with 0- vicryl suture. A #10 Perdue trocar was positioned and CO2 gas was used to insufflate the abdomen to a quantity sufficient for the laparoscopy. The laparoscope was inserted and a survey was done of the abdomen pictures were obtained. Findings noted as above. The right fallopian tube was identified and traced to its fimbriated end. The right ovary was noted to be normal. A Filshie clip was then placed approximately 1 to 2 cm from the uterine cornu across the right fallopian tube. The Filshie clip was noted to surround the tube in its entirety good blanching and hemostasis was noted. The left fallopian tube was then traced to its fibriated end and a Filshie clip was placed 1 to 2 cm from the uterine cornu on the left fallopian tube. The Filshie clip was noted to surround the tube in its entirety with good blanching and hemostasis was noted. Pictures were obtained. At this point the procedure was terminated. All instrument removed from the patient's abdomen and CO2 gas was allowed to escape. The infraumbilical port was removed. The fascia was closed with 0 Vicryl suture. The skin was closed with 3-0 Monocryl in a series of interrupted stitiches. The skin incision was then clean dried and Dermabond was applied over the skin incision. All instrument sponge and needle counts were correct x3 for the procedure the patient tolerated the procedure well. She will proceed to recovery room in stable condition
--- NOTE | 2020-07-29 13:19 | Discharge Summary ---
Discharge Summary (SDC) - Discharge Final Diagnosis: Unwanted fertility and multiparity Date of Surgery: 07/29/20 Discharge Date: 07/29/20 Condition: Stable Treatment or Instructions: No heavy lifting for 6 wks Prescriptions: Ibuprofen [Ibu] 800 mg PO Q8 10 Days #30 tablet Hydrocodone/Acetaminophen [[place] 5-325 mg Tablet] 1 tab PO Q4 PRN 4 Days #24 tablet PRN Reason: For Pain Scale 4-5 Respiratory Treatments at Home: Deep Breathing/Coughing Discharge Activity: Activity As Tolerated, No Lifting Over 10 Pounds, Walk Frequently Home Care Assistance: None Needed Report the Following to Your Physician Immediately: Shortness of Breath, Nausea, Vomiting, Fever over 101 Degrees, Redness, Large Clots, IV Site Infection Signs
[2020-07-29] MEDS: FENTANYL CITRATE INJ/PF 100 MCG/2 ML AMPUL ONE ×5 (13:30→13:50)
[2020-07-29] MEDS ORDERED: HYDROCODONE/ACETAMINOPHEN 5-325 MG TABLET PO PRN (14:25)
[2020-07-29 15:54] VITALS: BP 114/77
== END 2020-07-29 15:40 | disposition home or self-care (01) ==
LOC: OROUT 09:32
PROVIDERS: ATTEND Obstetrics & Gynecology
DX: Z30.2 Encounter for sterilization (principal); N83.202 Unspecified ovarian cyst, left side; Z03.818 Encounter for observation for suspected exposure to other biological agents ruled out; Z87.891 Personal history of nicotine dependence; Z79.899 Other long term (current) drug therapy
CPT/HCPCS: 36415; 85027; 87635; 81005; 81025; 00851; 58671; J2250; J1100; J1885; J3010; J2405; J2704; C9803; 851

== ENCOUNTER 2020-09-08 15:39 | Emergency (ER) | payer MEDICAID ==
--- NOTE | 2020-09-08 17:31 | ER Document Report ---
ED Medical Screen (RME) - General Chief Complaint: Hand Pain Stated Complaint: HAND PAIN, DISCOLORED Time Seen by Provider: 09/08/20 17:25 Mode of Arrival: Ambulatory Information source: Patient Notes: 29-year-old female presented to ED for painful hands that are changing colors over the last week. She states she is also being tested for autoimmune disease. We will get the Covid testing started as well as blood and urine and chest x- ray. She will be seen by another provider. The patient was evaluated during the global Covid 19 pandemic, and that diagnosis was suspected/considered upon their initial presentation. Their evaluation, treatment and testing was consistent with current guidelines for patients who present with complaints or symptoms that may be related to Covid 19. I have greeted and performed a rapid initial assessment of this patient. A comprehensive ED assessment and evaluation of the patient, analysis of test results and completion of medical decision making process will be conducted by an additional ED providers. TRAVEL OUTSIDE OF THE [place] IN LAST 30 DAYS: No - Related Data Allergies/Adverse Reactions: No Known Allergies Allergy (Verified 09/08/20 17:25) Past Medical History - Social History Frequency of alcohol use: Occasional - Past Medical History Cardiac Medical History: Denies: Hx Coronary Artery Disease, Hx Heart Attack, Hx Hypertension Pulmonary Medical History: Denies: Hx Asthma, Hx Bronchitis, Hx COPD, Hx Pneumonia Neurological Medical History: Reports: Hx Migraine. Denies: Hx Cerebrovascular Accident, Hx Seizures Renal/ Medical History: Reports: Hx Kidney Stones. Denies: Hx Peritoneal Dialysis GI Medical History: Reports: Hx Gastroesophageal Reflux Disease Musculoskeltal Medical History: Denies Hx Arthritis, Reports Hx Musculoskeletal Deformity - Chronic neck and back pain Past Surgical History: Reports: Hx Cholecystectomy, Hx Kidney (Renal Surgery) - kidney stone removed with stent placed, Hx Oral Surgery - [place] teeth extraction. Two left molar and one right molar extraction. - Immunizations Immunizations up to date: Yes Hx Diphtheria, Pertussis, Tetanus Vaccination: No Physical Exam - Vital signs Vitals: Temp Pulse Resp BP Pulse Ox 97.7 F 128 H 20 133/73 H 99 09/08/20 15:51 09/08/20 15:51 09/08/20 15:51 09/08/20 15:51 09/08/20 15:51 Course - Vital Signs Vital signs: Temp Pulse Resp BP Pulse Ox 97.7 F 128 H 20 133/73 H 99 09/08/20 15:51 09/08/20 15:51 09/08/20 15:51 09/08/20 15:51 09/08/20 15:51
--- NOTE | 2020-09-08 18:17 | RADIOLOGY REPORT (SQ) ---
EXAM DESCRIPTION: CHEST SINGLE VIEW IMAGES COMPLETED DATE/TIME: 09/08/2020 6:00 pm REASON FOR STUDY: covid symptoms COMPARISON: 03/07/2017 EXAM PARAMETERS: NUMBER OF VIEWS: One view. TECHNIQUE: Single frontal radiographic view of the chest acquired. RADIATION DOSE: NA LIMITATIONS: None. FINDINGS: LUNGS AND PLEURA: No opacities, masses or pneumothorax. No pleural effusion. MEDIASTINUM AND HILAR STRUCTURES: No masses. Contour normal. HEART AND VASCULAR STRUCTURES: Heart normal in size. Normal vasculature. BONES: No acute findings. HARDWARE: None in the chest. OTHER: No other significant finding. IMPRESSION: NO ACUTE RADIOGRAPHIC FINDING IN THE CHEST. TECHNICAL DOCUMENTATION: JOB ID: [id number] 2010 [employer]- All Rights Reserved Reading location - IP/workstation name: [email or web address]
--- NOTE | 2020-09-08 18:17 | RADIOLOGY REPORT (SQ) ---
EXAM DESCRIPTION: HAND BILATERAL 3 VIEWS IMAGES COMPLETED DATE/TIME: 09/08/2020 6:00 pm REASON FOR STUDY: Painful discolored hands COMPARISON: None. EXAM PARAMETERS: NUMBER OF VIEWS: Three views. TECHNIQUE: AP, lateral and oblique radiographic images acquired of the right and left hand. LIMITATIONS: None. FINDINGS: MINERALIZATION: Normal. BONES: No acute fracture or dislocation. No worrisome bone lesions. No significant osteophytes. JOINTS: No erosions. No annabelle-articular osteopenia. No chondrocalcinosis. SOFT TISSUES: No swelling. No calcifications. OTHER: No other significant finding. IMPRESSION: NEGATIVE STUDY OF THE RIGHT AND LEFT HANDS. NO EXPLANATION FOR PAIN. TECHNICAL DOCUMENTATION: JOB ID: [id number] 2010 [employer]- All Rights Reserved Reading location - IP/workstation name: [email or web address]
--- NOTE | 2020-09-08 19:15 | ER Document Report ---
ED General - General Mode of Arrival: Ambulatory TRAVEL OUTSIDE OF THE [place] IN LAST 30 DAYS: No <JOVAN SHAFFER - Last Filed: 09/08/20 20:36> <JEAN PAUL MORGAN - Last Filed: 09/08/20 23:21> - General Chief Complaint: Hand Pain Stated Complaint: HAND PAIN, DISCOLORED Time Seen by Provider: 09/08/20 17:25 Primary Care Provider: CHARLIE MARROQUIN MD [NO LOCAL MD] - Follow up as needed BRIAN TILLMAN PA-C [Primary Care Provider] - Follow up as needed - [facility] Notes: Patient is a 29 y/o female with a hx of eczema who presents with bilateral hand pain and discoloration that began two days ago. It has been significantly colder in the past couple of days and her symptoms worsened when she was sitting in the waiting room of the ER today. Patient was seen by her PCP yesterday and is in the process of being referred to rheumatology for possible Sjogren's. She reports being diagnosed with thrush about a week ago and was treated with nystatin. She endorses chronic dry mouth and multiple episodes of thrush in the past. She denies any chest pain, shortness of breath, abdominal pain, nausea, vomiting, diarrhea, and fever. She reports chronic dryness of cracking of her hands which is not new. She states her cousin has a history of autoimmune disease but she cannot recall the exact name of this order. She denies any history of thyroid issues. She reports a history of chronic back pain. (JOVAN SHAFFER) - Related Data Allergies/Adverse Reactions: No Known Allergies Allergy (Verified 09/08/20 17:25) Past Medical History - General Information source: Patient - Social History Smoking Status: Current Some Day Smoker Frequency of alcohol use: Occasional Family History: DM, Hyperlipidemia Patient has homicidal ideation: No - Past Medical History Cardiac Medical History: Denies: Hx Coronary Artery Disease, Hx Heart Attack, Hx Hypertension Pulmonary Medical History: Denies: Hx Asthma, Hx Bronchitis, Hx COPD, Hx Pneumonia Neurological Medical History: Reports: Hx Migraine. Denies: Hx Cerebrovascular Accident, Hx Seizures Renal/ Medical History: Reports: Hx Kidney Stones. Denies: Hx Peritoneal Dialysis GI Medical History: Reports: Hx Gastroesophageal Reflux Disease Musculoskeletal Medical History: Denies Hx Arthritis, Reports Hx Musculoskeletal Deformity - Chronic neck and back pain Past Surgical History: Reports: Hx Cholecystectomy, Hx Kidney (Renal Surgery) - kidney stone removed with stent placed, Hx Oral Surgery - [place] teeth extraction. Two left molar and one right molar extraction. - Immunizations Immunizations up to date: Yes Hx Diphtheria, Pertussis, Tetanus Vaccination: No <JOVAN SHAFFER - Last Filed: 09/08/20 20:36> Review of Systems - Review of Systems Constitutional: No symptoms reported EENT: No symptoms reported Cardiovascular: No symptoms reported Respiratory: No symptoms reported Gastrointestinal: No symptoms reported Genitourinary: No symptoms reported Female Genitourinary: No symptoms reported Musculoskeletal: See HPI Skin: No symptoms reported Hematologic/Lymphatic: No symptoms reported Neurological/Psychological: No symptoms reported <JOVAN SHAFFER - Last Filed: 09/08/20 20:36> Physical Exam <JOVAN SHAFFER - Last Filed: 09/08/20 20:36> - Vital signs Vitals: Temp Pulse Resp BP Pulse Ox 97.7 F 128 H 20 133/73 H 99 09/08/20 15:51 09/08/20 15:51 09/08/20 15:51 09/08/20 15:51 09/08/20 15:51 - Notes Notes: PHYSICAL EXAMINATION: GENERAL: Well-appearing, well-nourished and in no acute distress. HEAD: Atraumatic, normocephalic. EYES: sclera anicteric, conjunctiva are normal. ENT: Dry mucous membranes. NECK: Normal range of motion LUNGS: Normal work of breathing HEART: 2+ radial pulses bilaterally EXTREMITIES: Purple discoloration to the bilateral fingers. ROM of the fingers and hand bilaterally is limited secondary to pain. Good cap refill. Sensation and strength intact. No discoloration noted to the bilateral feet. 2+ DP and PT pulses bilaterally. No pitting or edema. No cyanosis. NEUROLOGICAL: No focal neurological deficits. Moves all extremities spontaneously and on command. PSYCH: Normal mood, normal affect. SKIN: Warm, Dry, normal turgor, no rashes or lesions noted. (JOVAN SHAFFER) Course <JOVAN SHAFFER - Last Filed: 09/08/20 20:36> - Laboratory Result Diagrams: 09/08/20 21:17 09/08/20 21:17 <JEAN PAUL MORGAN - Last Filed: 09/08/20 23:21> - Re-evaluation Re-evalutation: Patient is a 29-year-old female who presents with bilateral hand discoloration and pain that began 2 days ago and worsened today. She was seen by her primary care yesterday and advised to follow-up with rheumatology. Vital signs are normal and stable. On exam, purple discoloration to the bilateral fingers. ROM of the fingers and hand bilaterally is limited secondary to pain. Good cap refill and radial pulses. Chest x-ray and bilateral hand x-rays are all negative. Based on her history and presentation, I am highly suspicious of Raynaud's phenomenon. I spoke my supervising physician, Dr. Anderson, concerning this patient. He came and evaluated the patient and agrees that she likely has Raynaud's. Due to her history he recommends proceeding with blood work and rheumatology referral. I informed the patient of our plan and she is in agreement. She is requesting pain medication and 60 mg IM Toradol ordered. Patient handoff given to Jean Paul Woodall NP. (JOVAN SHAFFER) 09/08/20 21:29 Report was received on the patient. I evaluated the patient. I had to physically shake the patient to wake her from sleep. Patient's hands including the fingers and the dorsal and palmar surfaces of the hands are bluish colored although it appears almost as if there is tender or on the hands and skin. I discussed evaluation with the patient we are waiting on lab work at this time. If lab work including CBC CMP and TSH are normal we will plan to discharge as rheumatoid factors were obtained for patient's follow-up after discharge today. She is requesting pain medication although I had to physically wake the patient up. Will await lab work, anticipate discharge to follow-up with rheumatology (JEAN PAUL TEIXEIRA) - Vital Signs Vital signs: Temp Pulse Resp BP Pulse Ox 97.6 F 73 16 108/77 99 09/08/20 23:05 09/08/20 23:05 09/08/20 23:05 09/08/20 23:05 09/08/20 23:05 - Laboratory Laboratory results interpreted by me: 09/08/20 09/08/20 21:17 21:17 WBC 13.7 H RDW 14.1 H Lymph % (Auto) 46.7 H Absolute Lymphs (auto) 6.4 H Sodium 135.4 L Discharge <JOVAN SHAFFER - Last Filed: 09/08/20 20:36> <JEAN PAUL MORGAN - Last Filed: 09/08/20 23:21> - Discharge Clinical Impression: Discoloration of skin of finger Raynauds phenomenon Qualifiers: Raynaud?s-associated gangrene presence: without gangrene Qualified Code(s): I73.00 - Raynaud's syndrome without gangrene Hand pain Qualifiers: Laterality: bilateral Qualified Code(s): M79.641 - Pain in right hand Condition: Stable Disposition: HOME, SELF-CARE Additional Instructions: Follow-up with [facility] at [address] [place] [address] in [place]. Their phone number is [phone]. Return if your symptoms worsen or if any concerning symptoms arise. Prescriptions: Diclofenac Sodium [Voltaren 50 Mg Tablet.] 50 mg PO BID #20 tablet.dr Referrals: BRIAN TILLMAN PA-C [Primary Care Provider] - Follow up as needed CHARLIE MARROQUIN MD [NO LOCAL MD] - Follow up as needed
[2020-09-08] MEDS ORDERED: KETOROLAC TROMETHAMINE 60 MG/2 ML SDV IM ONE (20:41)
[2020-09-08 21:41] LABS: ABSOLUTE EOSINOPHILS # (AUTO) 0.2 10^3/uL (0.0-0.6); ABSOLUTE LYMPHOCYTES (AUTO) 6.4 10^3/uL (0.5-4.7); ABSOLUTE MONOCYTES (AUTO) 0.8 10^3/uL (0.1-1.4); ABSOLUTE NEUT (AUTO) 6.4 10^3/uL (1.7-8.2); BASOPHILS % (AUTO) 0.2 % (0-2); EOSINOPHILS % (AUTO) 1.1 % (0-6); HEMATOCRIT 36.8 % (36.0-47.0); HEMOGLOBIN 12.1 g/dL (12.0-15.5); LYMPHOCYTES % (AUTO) 46.7 % (13-45); MEAN CORPUSCULAR HEMOGLOBIN 29.3 pg (27.0-33.4); MEAN CORPUSCULAR HGB CONC 32.9 g/dL (32.0-36.0); MEAN CORPUSCULAR VOLUME 89 fl (80-97); MONOCYTES % (AUTO) 5.5 % (3-13); PLATELET COUNT 396 10^3/uL (150-450); RED BLOOD COUNT 4.13 10^6/uL (3.72-5.28); RED CELL DISTRIBUTION WIDTH 14.1 % (11.5-14.0); SEGMENTED NEUTROPHILS % (AUTO) 46.5 % (42-78); TOTAL CELLS COUNTED % (AUTO) 100 %; WHITE BLOOD COUNT 13.7 10^3/uL (4.0-10.5)
[2020-09-08 21:54] LABS: ALBUMIN 4.1 g/dL (3.5-5.0); ALKALINE PHOSPHATASE 64 U/L (38-126); ANION GAP 6 (5-19); ASPARTATE AMINO TRANSFERASE 18 U/L (14-36); BILIRUBIN,DIRECT 0.1 mg/dL (0.0-0.4); BILIRUBIN,TOTAL 0.3 mg/dL (0.2-1.3); BLOOD UREA NITROGEN 18 mg/dL (7-20); CALCIUM 9.5 mg/dL (8.4-10.2); CARBON DIOXIDE 28 mmol/L (22-30); CHLORIDE 101 mmol/L (98-107); GLUCOSE 80 mg/dL (75-110); POTASSIUM 4.6 mmol/L (3.6-5.0); TOTAL PROTEIN 6.9 g/dL (6.3-8.2)
[2020-09-08 22:16] LABS: ERYTHROCYTE SEDIMENTATION RATE 11 mm/hr (0-20)
[2020-09-08 23:06] VITALS: BP 108/77
== END 2020-09-08 23:25 | disposition home or self-care (01) ==
LOC: ER 15:39
DX: I73.00 Raynaud's syndrome without gangrene (principal); M79.641 Pain in right hand; M79.642 Pain in left hand; L98.8 Other specified disorders of the skin and subcutaneous tissue; F17.200 Nicotine dependence, unspecified, uncomplicated; Z87.442 Personal history of urinary calculi; Z90.49 Acquired absence of other specified parts of digestive tract
CPT/HCPCS: 99284; 96372; 36415; 86157; 84443; 85025; 85652; 86038; 86592; 80053; 86701; 86431 ×3; 71045; 73130; J1885

== ENCOUNTER 2020-11-18 12:03 | Emergency (ER) | payer MEDICAID ==
[2020-11-18] MEDS ORDERED: LEVOFLOXACIN 750 MG TABLET PO ONE (13:14)
[2020-11-18] MEDS ORDERED: FLUCONAZOLE 100 MG TABLET PO ONE (13:15)
[2020-11-18] MEDS ORDERED: NORMAL SALINE 1000 ML 1,000 ML IV ONE (13:15)
--- NOTE | 2020-11-18 13:23 | ER Document Report ---
ED General - General Chief Complaint: Shortness Of Breath Stated Complaint: SHORT OF BREATH Time Seen by Provider: 11/18/20 12:41 Primary Care Provider: BRIAN TILLMAN PA-C [Primary Care Provider] - Follow up as needed Notes: HPI: 30-year-old female that presents today with multiple complaints. Patient is a very poor historian. She states she has a past medical history as recorded including recently diagnosed fibromyalgia. She states she had a normal vaginal delivery 5 months ago. Patient states that she has been suffering from thrush in her mouth for around 3 years. Patient states around 6 weeks ago she had a cough and some shortness of breath. She states she was seen and placed on an antibiotic of an unknown name. She states that the cough never really improved. She states that she was seen at an outside emergency department and was going to be admitted secondary to a pneumonia but she left AGAINST MEDICAL ADVICE while still in the ER. She states that this was 2 days ago. She did have paper work with her showing a CT scan of the chest with IV contrast on the showing a viral-like pneumonia. I also see a visit from the same location on the showing Diflucan, Levaquin, and nystatin prescriptions. Patient has her medications with her. She pauses when I asked her if she is still taking the Levaquin. She states she thinks she is as she thinks it is at home. She does not remember taking any meds today. She presents here as she did not like the treatment at that location and wanted to see "what was wrong with me". She denies any and all chest pain, vomiting, diarrhea, headache, calf pain or leg swelling. She states she did have some hand discoloration on a previous visit here and she has showed me the pictures. She states the hand coloration has improved. She states she does have an appointment with a commercial shrimping captain. ROS: See HPI All other review of systems reviewed and otherwise negative Reviewed vital signs and nursing note as charted by RN. PHYSICAL EXAM: CONSTITUTIONAL: Alert and oriented and responds appropriately to questions. Well-appearing; well-nourished HEAD: Normocephalic; atraumatic EYES: PERRL; Conjunctivae clear, sclerae non-icteric ENT: Normal nose; no rhinorrhea; no posterior pharyngeal lesions. Patient does have small punctate red blotches to the tongue with no obvious buccal mucosal lesions present NECK: Supple without meningismus; non-tender; no cervical lymphadenopathy, no masses CARD: Slightly tachycardic and regular; no murmurs; symmetric distal pulses RESP: Normal chest excursion without splinting or tachypnea; breath sounds clear and equal bilaterally; no wheezes, no rhonchi, no rales ABD/GI: Normal bowel sounds; non-distended; soft, non-tender; no palpable organomegaly or masses BACK: The back appears normal and is non-tender to palpation EXT: Normal ROM in all joints; non-tender to palpation; no edema SKIN: No acute lesions noted NEURO: CN 2-12 intact; 5/5 bilateral upper and lower extremity strength with sensation intact to light touch PSYCH: The patient's mood and manner are appropriate. Grooming and personal hygiene are appropriate. TRAVEL OUTSIDE OF THE [place] IN LAST 30 DAYS: No - Related Data Allergies/Adverse Reactions: No Known Allergies Allergy (Verified 09/08/20 17:25) Past Medical History - Social History Smoking Status: Unknown if Ever Smoked Family History: DM, Hyperlipidemia - Past Medical History Cardiac Medical History: Denies: Hx Coronary Artery Disease, Hx Heart Attack, Hx Hypertension Pulmonary Medical History: Denies: Hx Asthma, Hx Bronchitis, Hx COPD, Hx Pneumonia Neurological Medical History: Reports: Hx Migraine. Denies: Hx Cerebrovascular Accident, Hx Seizures Renal/ Medical History: Reports: Hx Kidney Stones. Denies: Hx Peritoneal Dialysis GI Medical History: Reports: Hx Gastroesophageal Reflux Disease Musculoskeletal Medical History: Denies Hx Arthritis, Reports Hx Musculoskeletal Deformity - Chronic neck and back pain Past Surgical History: Reports: Hx Cholecystectomy, Hx Kidney (Renal Surgery) - kidney stone removed with stent placed, Hx Oral Surgery - [place] teeth extraction. Two left molar and one right molar extraction. - Immunizations Immunizations up to date: Yes Hx Diphtheria, Pertussis, Tetanus Vaccination: No Physical Exam - Vital signs Vitals: Temp Pulse Resp BP Pulse Ox 98.3 F 113 H 16 98/59 L 94 11/18/20 12:10 11/18/20 12:10 11/18/20 12:10 11/18/20 12:10 11/18/20 12:10 Course - Re-evaluation Re-evalutation: Given the above history and physical we will obtain a cardiac panel, x-ray of the chest, D-dimer, provide fluids, and reassess. I will provide a dose of the Levaquin that the patient was taking previously. Patient supposedly has had multiple tests that have been negative for coronavirus according to patient's report. EKG shows a rate of 90, normal sinus rhythm, normal axis, no ST elevation or depression. 11/18/20 17:27 Labs and imaging as recorded. The chest as recorded. I will obtain a CTA of the chest for further evaluation and treatment. We have repleted the patient with fluids with her slightly elevated electrolyte levels. I have also replaced the patient's potassium. 11/18/20 19:27 Heart rate is currently 87. Satting 99% on room air. Given the above history and physical examination, satting well, no acute dist ress, having completed multiple courses of antibiotics, x-ray and CT scan showing what appears to be a viral-like groundglass opacities, I am concerned that the patient may have had a previous coronavirus infection that she is still recovering from over the last few weeks. Patient has a commercial shrimping captain she is following up with. Vital signs are stable. Troponin and EKG with a BNP as recorded. Given the above history and physical, patient will be discharged home with strict return precautions and follow-up with the primary care physician for further assessment and treatment. - Vital Signs Vital signs: Temp Pulse Resp BP Pulse Ox 98.1 F 113 H 19 101/60 93 11/18/20 18:16 11/18/20 12:10 11/18/20 18:00 11/18/20 17:02 11/18/20 18:00 - Laboratory Results Result Diagrams: 11/18/20 15:00 11/18/20 15:00 Laboratory Results Interpreted: 11/18/20 11/18/20 11/18/20 15:00 15:00 15:00 WBC 14.4 H RBC 3.37 L Hgb 9.5 L Hct 29.7 L Absolute Neuts (auto) 10.8 H D-Dimer 0.71 H Sodium 135.8 L Potassium 3.5 L Chloride 108 H Carbon Dioxide 21 L Calcium 7.5 L NT-Pro-B Natriuret Pep Total Protein 5.7 L Albumin 3.1 L 11/18/20 15:00 WBC RBC Hgb Hct Absolute Neuts (auto) D-Dimer Sodium Potassium Chloride Carbon Dioxide Calcium NT-Pro-B Natriuret Pep 318 H Total Protein Albumin Critical Laboratory Results Reviewed: No Critical Results - Radiology Results Critical Radiology Results Reviewed: No Critical Results Discharge - Discharge Clinical Impression: Shortness of breath, Cough Condition: Good Disposition: HOME, SELF-CARE Additional Instructions: Come back immediately for any worsening cough, shortness of breath, swelling of the legs, persistent vomiting, fevers, or any other acute problems. Please follow-up with your primary care physician for reassessment as discussed. Referrals: BRIAN TILLMAN PA-C [Primary Care Provider] - Follow up as needed
--- NOTE | 2020-11-18 14:24 | RADIOLOGY REPORT (SQ) ---
EXAM DESCRIPTION: CHEST SINGLE VIEW IMAGES COMPLETED DATE/TIME: 11/18/2020 1:37 pm REASON FOR STUDY: 9; cough COMPARISON: 09/08/2020 EXAM PARAMETERS: NUMBER OF VIEWS: One view. TECHNIQUE: Single frontal radiographic view of the chest acquired. RADIATION DOSE: NA LIMITATIONS: None. FINDINGS: LUNGS AND PLEURA: Low lung volumes with resultant bronchovascular crowding. No focal cons olidation, pleural effusion, or pneumothorax. MEDIASTINUM AND HILAR STRUCTURES: No masses. Contour normal. HEART AND VASCULAR STRUCTURES: Heart normal in size. Normal vasculature. BONES: No acute findings. HARDWARE: None in the chest. OTHER: No other significant finding. IMPRESSION: No evidence of acute cardiopulmonary abnormality. TECHNICAL DOCUMENTATION: JOB ID: [id number] 2010 [employer]- All Rights Reserved Reading location - IP/workstation name: [email or web address]
[2020-11-18 15:31] LABS: ABSOLUTE EOSINOPHILS # (AUTO) 0.4 10^3/uL (0.0-0.6); ABSOLUTE LYMPHOCYTES (AUTO) 2.5 10^3/uL (0.5-4.7); ABSOLUTE MONOCYTES (AUTO) 0.6 10^3/uL (0.1-1.4); ABSOLUTE NEUT (AUTO) 10.8 10^3/uL (1.7-8.2); BASOPHILS % (AUTO) 0.2 % (0-2); EOSINOPHILS % (AUTO) 2.9 % (0-6); HEMATOCRIT 29.7 % (36.0-47.0); HEMOGLOBIN 9.5 g/dL (12.0-15.5); LYMPHOCYTES % (AUTO) 17.3 % (13-45); MEAN CORPUSCULAR HEMOGLOBIN 28.2 pg (27.0-33.4); MEAN CORPUSCULAR VOLUME 88 fl (80-97); MONOCYTES % (AUTO) 4.5 % (3-13); PLATELET COUNT 373 10^3/uL (150-450); RED BLOOD COUNT 3.37 10^6/uL (3.72-5.28); RED CELL DISTRIBUTION WIDTH 13.7 % (11.5-14.0); SEGMENTED NEUTROPHILS % (AUTO) 75.1 % (42-78); TOTAL CELLS COUNTED % (AUTO) 100 %; WHITE BLOOD COUNT 14.4 10^3/uL (4.0-10.5)
[2020-11-18] MEDS ORDERED: BENZONATATE 100 MG CAPSULE PO ONE (15:33)
[2020-11-18 15:51] LABS: ALBUMIN 3.1 g/dL (3.5-5.0); ALKALINE PHOSPHATASE 92 U/L (38-126); ANION GAP 7 (5-19); ASPARTATE AMINO TRANSFERASE 30 U/L (14-36); BILIRUBIN,DIRECT 0.3 mg/dL (0.0-0.4); BILIRUBIN,TOTAL 0.4 mg/dL (0.2-1.3); BLOOD UREA NITROGEN 12 mg/dL (7-20); CALCIUM 7.5 mg/dL (8.4-10.2); CARBON DIOXIDE 21 mmol/L (22-30); CHLORIDE 108 mmol/L (98-107); GLUCOSE 78 mg/dL (75-110); POTASSIUM 3.5 mmol/L (3.6-5.0); TOTAL PROTEIN 5.7 g/dL (6.3-8.2)
--- NOTE | 2020-11-18 18:05 | RADIOLOGY REPORT (SQ) ---
EXAM DESCRIPTION: CTA CHEST IMAGES COMPLETED DATE/TIME: 11/18/2020 2:48 pm REASON FOR STUDY: 9; eval pe COMPARISON: Single-view chest same date and CTA chest 03/01/2017 TECHNIQUE: CT scan of the chest performed using helical scanning technique with dynamic intravenous contrast injection. Images reviewed with lung, soft tissue and bone windows. Reconstructed coronal and sagittal MPR images reviewed. Additional 3 dimensional post-processing performed to develop Maximal Intensity Projection images (ME P). All images stored on PACS. All CT scanners at this facility use dose modulation, iterative reconstruction, and/or weight based d osing when appropriate to reduce radiation dose to as low as reasonably achievable (ALARA). [facility]: Dose Right [facility]: CareDose [facility]: Dose Right [facility]: Teradose 4D [facility]: [employer] CONTRAST TYPE AND DOSE: contrast/concentration: Isovue 350.00 mmol/ml; Total Contrast Delivered: 75. 0 ml; Total Saline Delivered: 75.0 ml Contrast bolus adequate for pulmonary arteries and aorta. RENAL FUNCTION: None required. The patient is less than 50 years old. RADIATION DOSE: CT Rad equipment meets quality standard of care and radiation dose reduction techniq ues were employed. CTDIvol: 18.2 - 19.8 mGy. DLP: 640 mGy-cm. . LIMITATIONS: None. FINDINGS: LUNGS AND PLEURA: Diffuse patchy bilateral ground-glass opacities throughout both lungs. In the upper lobes, the opacities are noted both centrally and peripherally. In the lower lobes, the re is more pronounced opacities centrally. There is some septal thickening superiorly. No pleural e ffusion or thickening. No pneumothorax. AORTA AND GREAT VESSELS: No aneurysm. No dissection. HEART: No pericardial effusion. No significant coronary artery calcifications. PULMONARY ARTERIES: No emboli visualized in the main pulmonary arteries or the segmental branches. HILAR AND MEDIASTINAL STRUCTURES: No identified masses or abnormal nodes. HARDWARE: None in the chest. UPPER ABDOMEN: No significant findings. Limited exam. THYROID AND OTHER SOFT TISSUES: No masses. No adenopathy. BONES: No acute or significant finding. 3D MIPS: Confirm above findings. OTHER: No other significant finding. IMPRESSION: 1. Diffuse bilateral patchy ground-glass opacities as described. There is also some mi ld septal thickening. Findings are nonspecific and differential considerations include infectious et iology including viral and atypical pneumonias, as well as pulmonary edema and hemorrhage. 2. No pulmonary embolism identified. COMMENT: Quality ID # [id number]: Final reports with documentation of one or more dose reduction techniques (e.g., Automated exposure control, adjustment of the mA and/or kV according to patient size, use of iterative reconstruction technique) TECHNICAL DOCUMENTATION: JOB ID: [id number] 2010 [employer]- All Rights Reserved Reading location - IP/workstation name: [email or web address]
[2020-11-18] MEDS ORDERED: CALCIUM GLUCONATE 1000 MG/10 ML INJ IV ONE (18:16)
--- NOTE | 2020-11-18 19:58 | EKG REPORT ---
SEVERITY:- BORDERLINE ECG - SINUS RHYTHM BORDERLINE PROLONGED QT INTERVAL : Confirmed by: Jose Enrique Allen MD 18-Nov-2020 19:57:12
[2020-11-18 20:37] VITALS: BP 108/67
== END 2020-11-18 20:36 | disposition home or self-care (01) ==
LOC: ER 12:03
DX: J18.9 Pneumonia, unspecified organism (principal); R06.02 Shortness of breath; R05 Cough; B37.0 Candidal stomatitis
CPT/HCPCS: 93005; 99285; 96361; 96365; 36415; 85025; 80053; 84484; 85379; 83880; 71045; 71275; 93010; J3490 ×3; J0610; J7030